=== PATIENT | male | born 1940 | race Caucasian/White ===

== ENCOUNTER 2017-01-19 19:56 | Emergency (ER) | payer MEDICARE, MEDICAID ==
--- NOTE | 2017-01-19 20:39 | EDM.PDOC ---
ED HPI GENERAL MEDICAL PROBLEM - General Chief Complaint: Respiratory Problem Stated Complaint: COUGH Time Seen by Provider: 01/19/17 20:15 Source of Information: Reports: Patient History Limitations: Reports: No Limitations - History of Present Illness INITIAL COMMENTS - FREE TEXT/NARRATIVE: 76 YO WM presents to ER complaining of nonproductive cough when lying supine. Pt reports his was seen in the clinic yesterday for similar symptoms and she was started on a z-pack, and patient was prescribed a z-pack as well as a prophylaxsis due to infection in the home. Pt reports he lied down tonight and started coughing prompting ER visit. Pt denies shortness of breath, denies chest pain, denies fever/chills. Pt reports nasal congestion with some drainage tonight. Onset: today Duration: Day(s): (1) Severity: mild Improves with: Reports: Other (sitting up) Worsens with: Denies: Breathing Associated Symptoms: Reports: cough. Denies: chest pain, cough w sputum, fever/ chills, nausea/vomiting, shortness of breath, syncope, weakness - Related Data Allergies Allergy/AdvReac Type Severity Reaction Status Date / Time omeprazole magnesium Allergy Intermediate Cannot Verified 01/19/17 20:02 [From Prilosec] Remember cimetidine [From Tagamet] Allergy Cannot Verified 01/19/17 20:02 Remember cimetidine HCl [From Tagamet] Allergy Cannot Verified 01/19/17 20:02 Remember codeine Allergy Rash Verified 01/19/17 20:02 omeprazole [From Prilosec] Allergy Cannot Verified 01/19/17 20:02 Remember Home Meds: Home Meds Aspirin [Adult Low Dose Aspirin EC] 81 mg PO DAILY 10/09/13 [History] Albuterol [Ventolin HFA] 1 inhaler INH Q4H PRN #1 inhaler 01/14/16 [Rx] Allopurinol [Zyloprim] 300 mg PO DAILY #90 tablet 01/14/16 [Rx] Esomeprazole [NexIUM] 40 mg PO ACBREAKFAST #90 cap 01/14/16 [Rx] Furosemide [Lasix] 20 mg PO DAILY #90 tablet 01/14/16 [Rx] Gemfibrozil [Lopid] 600 mg PO BIDAC #90 tablet 01/14/16 [Rx] Simvastatin [Zocor] 20 mg PO BEDTIME #90 tablet 01/14/16 [Rx] Tamsulosin [Flomax] 0.4 mg PO QAM #90 cap.er 01/14/16 [Rx] busPIRone [Buspar] 10 mg PO BID #90 tablet 01/14/16 [Rx] metFORMIN [Glucophage] 1,000 mg PO BIDM #90 tablet 01/14/16 [Rx] traMADol HCl [Tramadol HCl] 50 mg PO TID PRN 04/16/16 [History] Lisinopril 20 mg PO BID 10/10/16 [History] Metoprolol Tartrate [Lopressor] 25 mg PO BID 10/10/16 [History] chlordiazePOXIDE [Librium] 10 mg PO BID 10/10/16 [History] Acetaminophen 650 mg PO Q6H PRN 10/11/16 [History] Nystatin [IJD: Nystatin Cream] 1 gm TOP BID #1 tube 10/17/16 [Rx] Azithromycin [Azithromycin] 250 mg PO DAILY 01/19/17 [History] Benzonatate [Tessalon Perles] 100 mg PO TID PRN #20 cap 01/19/17 [Rx] Cetirizine HCl [Zyrtec] 10 mg PO DAILYRT #30 tablet 01/19/17 [Rx] Past Medical History HEENT History: Reports: Cataract, Impaired vision Cardiovascular History: Reports: High cholesterol, Hypertension, [place] Gastrointestinal History: Reports: Chronic constipation, GERD Genitourinary History: Reports: BPH Musculoskeletal History: Reports: Arthritis, Back pain, chronic Psychiatric History: Reports: Anxiety, Dementia, Depression, Mood swings, Panic attack Endocrine/Metabolic History: Reports: Diabetes, type II, Obesity/BMI 30+ - Infectious Disease History Infectious Disease History: Reports: Measles - Past Surgical History HEENT Surgical History: Reports: Cataract surgery Cardiovascular Surgical History: Reports: None Respiratory Surgical History: Reports: None GI Surgical History: Reports: Cholecystectomy, Colonoscopy, EGD, Hernia, abdominal Endocrine Surgical History: Reports: None Musculoskeletal Surgical History: Reports: None Social & Family History - Family History HEENT: Reports: None Cardiac: Reports: Hypertension, [place] Respiratory: Reports: None GI: Reports: None : Reports: None OBGYN: Reports: None Musculoskeletal: Reports: None Neurological: Reports: None Psychiatric: Reports: None Endocrine/Metabolic: Reports: None Hematologic: Reports: None Immunologic: Reports: None Dermatologic: Reports: None Oncologic: Reports: Prostate - Tobacco Use Smoking Status *Q: Former Smoker Years of Tobacco use: 5 Packs/Tins Daily: 1 Used Tobacco, but Quit: No Month Tobacco Last Used: January Second Hand Smoke Exposure: No - Caffeine Use Caffeine Use: Reports: Coffee, Soda, Tea - Alcohol Use Days Per Week of Alcohol Use: 7 Number of Drinks Per Day: 7 Total Drinks Per Week: 49 - Recreational Drug Use Recreational Drug Use: No - Living Situation & Occupation Living situation: Reports: Occupation: retired ED ROS GENERAL - Review of Systems Review Of Systems: See Below Constitutional: Reports: No Symptoms HEENT: Reports: No Symptoms Respiratory: Reports: Cough. Denies: Shortness of Breath, Wheezing, Pleuritic Chest Pain, Sputum, Hemoptysis Cardiovascular: Reports: No Symptoms Endocrine: Reports: No Symptoms GI/Abdominal: Reports: No Symptoms : Reports: No Symptoms Musculoskeletal: Reports: No Symptoms Skin: Reports: No Symptoms Neurological: Reports: No Symptoms Psychiatric: Reports: No Symptoms Hematologic/Lymphatic: Reports: No Symptoms Immunologic: Reports: No Symptoms ED EXAM, GENERAL - Physical Exam Exam: See Below Exam Limited By: No Limitations General Appearance: Alert, WD/WN, No Apparent Distress Ears: Normal External Exam, Normal Canal, Hearing Grossly Normal, Normal TMs Nose: Normal Inspection, Normal Mucosa, No Blood, Clear Rhinorrhea Throat/Mouth: Normal Inspection, Normal Lips, Normal Teeth, Normal Gums, Normal Oropharynx, Normal Voice, No Airway Compromise Head: Atraumatic, Normocephalic Neck: Normal Inspection, Supple, Non-Tender, Full Range of Motion Respiratory/Chest: No Respiratory Distress, Lungs Clear, Normal Breath Sounds, No Accessory Muscle Use, Chest Non-Tender Cardiovascular: Normal Peripheral Pulses, Regular Rate, Rhythm, No Edema, No Gallop, No JVD, No Murmur, No Rub GI/Abdominal: Normal Bowel Sounds, Soft, Non-Tender, No Organomegaly, No Distention, No Abnormal Bruit, No Mass Back Exam: Normal Inspection, Full Range of Motion, NT Extremities: Normal Inspection, Normal Range of Motion, Non-Tender, Normal Capillary Refill, No Pedal Edema Neurological: Alert, Oriented, CN II-XII Intact, Normal Cognition, Normal Gait, Normal Reflexes, No Motor/Sensory Deficits Psychiatric: Normal Affect, Normal Mood Skin Exam: Warm, Dry, Intact, Normal Color, No Rash Lymphatic: No Adenopathy Course - Vital Signs Last Recorded V/S: Last Vital Signs Temp 36.1 C 01/19/17 20:00 Pulse 60 01/19/17 20:00 Resp 22 H 01/19/17 20:00 BP 132/60 01/19/17 20:00 Pulse Ox 96 01/19/17 20:00 - Orders/Labs/Meds Orders: Active Orders 24 hr Category Date Time Status Chest 2V [CR] Stat Exams 01/19/17 20:31 Taken Meds: Medications Discontinued Medications Generic Name Dose Route Start Last Admin Trade Name Freq PRN Reason Stop Dose Admin Diphenhydramine HCl 50 mg 01/19/17 20:43 01/19/17 20:58 Benadryl PO 01/19/17 20:44 50 mg ONETIME ONE Administration Departure - Departure Time of Disposition: 21:00 Disposition: Home, Self-Care 01 Condition: good Clinical Impression: Cough Upper respiratory infection Qualifiers: URI type: unspecified viral URI Qualified Code(s): J06.9 - Acute upper respiratory infection, unspecified - Discharge Information Prescriptions: Benzonatate [Tessalon Perles] 100 mg PO TID PRN #20 cap PRN Reason: Cough Cetirizine HCl [Zyrtec] 10 mg PO DAILYRT #30 tablet Instructions: Upper Respiratory Infection, Adult, [id number] Referrals: Georgia Zabala MD [Primary Care Provider] - Forms: ED Department Discharge - My Orders Last 24 Hours: My Active Orders 01/19/17 20:31 Chest 2V [CR] Stat - Assessment/Plan Last 24 Hours: My Active Orders 01/19/17 20:31 Chest 2V [CR] Stat Assessment:: 1. nonproductive cough 2. upper respiratory tract infection Plan: 1. zyrtec 10mg PO QD 2. continue z-pack 3. benadryl 50mg PO QHS PRN 4. tesselon perles 100mg PO TID PRN 5. follow up in clinic for recheck or return to ER for worsening symptoms
[2017-01-19] MEDS ORDERED: diphenhydrAMINE 25 MG Cap PO ONE (20:43)
[2017-01-19 22:58] VITALS: BP 132/60
== END 2017-01-19 21:15 | disposition home or self-care (01) ==
LOC: KA.ED 19:56
DX: J06.9 Acute upper respiratory infection, unspecified (principal); E78.00 Pure hypercholesterolemia, unspecified; I10 Essential (primary) hypertension; I25.2 Old myocardial infarction; K21.9 Gastro-esophageal reflux disease without esophagitis; F41.9 Anxiety disorder, unspecified; F32.9 Major depressive disorder, single episode, unspecified; E66.9 Obesity, unspecified; E11.9 Type 2 diabetes mellitus without complications; Z98.49 Cataract extraction status, unspecified eye; Z88.1 Allergy status to other antibiotic agents; Z88.8 Allergy status to other drugs, medicaments and biological substances; Z88.5 Allergy status to narcotic agent; Z79.82 Long term (current) use of aspirin; Z79.899 Other long term (current) drug therapy; Z90.49 Acquired absence of other specified parts of digestive tract; Z87.891 Personal history of nicotine dependence
CPT/HCPCS: 71020; 99283; A9270

== ENCOUNTER 2017-01-25 12:30 | Observation (INO) | payer MEDICARE, MEDICAID ==
[2017-01-25] MEDS ORDERED: traMADol 50 MG Tab PO PRN ×2 (13:18→22:20)
[2017-01-25] MEDS ORDERED: Dextrose 5%-0.45% NaCl 1,000 ML IV SCH (13:30)
[2017-01-25] MEDS ORDERED: Albuterol 0.083% 2.5 MG/3 ML Neb Soln NEB PRN (13:30)
[2017-01-25] MEDS ORDERED: Azithromycin 250 MG Tab PO ONE (14:00)
[2017-01-25 14:22] LABS: CHLORIDE,CL 100 mmol/L (98-115); SODIUM,NA 144 mmol/L (136-145)
[2017-01-25] MEDS: Levofloxacin/Dextrose 5%-Water 500 MG in Premix Bag 1 BAG IV SCH (15:12)
[2017-01-25] MEDS: guaiFENesin 100 MG/5 ML Soln 10 ML UD Cup PO PRN (15:19)
[2017-01-25] MEDS ORDERED: Ketorolac 60 MG/2 ML SDV IM ONE (15:41)
[2017-01-25] MEDS: Albuterol 0.083% 2.5 MG/3 ML Neb Soln NEB SCH ×2 (17:15→22:31)
[2017-01-25] MEDS ORDERED: Albuterol HFA 18 Gm Inhaler INH PRN (22:20)
[2017-01-25] MEDS ORDERED: Ketorolac 30 MG/ML SDV IVPUSH ONE (22:21)
[2017-01-25] MEDS: metFORMIN 500 MG Tab PO SCH (22:45)
[2017-01-26] MEDS: Albuterol 0.083% 2.5 MG/3 ML Neb Soln NEB SCH ×4 (05:52→21:45)
[2017-01-26] MEDS: Gemfibrozil 600 MG Tab PO SCH ×2 (06:00→18:01)
[2017-01-26] MEDS ORDERED: Esomeprazole 40 MG Cap PO SCH (07:00)
[2017-01-26] MEDS: metFORMIN 500 MG Tab PO SCH ×2 (07:49→18:01)
[2017-01-26] MEDS: Allopurinol 100 MG Tab PO SCH (08:00)
[2017-01-26] MEDS: Furosemide 20 MG Tab PO SCH (08:01)
[2017-01-26] MEDS: Lisinopril 20 MG Tab PO SCH ×2 (08:01→21:44)
[2017-01-26] MEDS: chlordiazePOXIDE 10 MG Cap PO SCH ×2 (08:01→21:44)
[2017-01-26] MEDS: Tamsulosin 0.4 MG Cap.ER PO SCH (08:01)
[2017-01-26] MEDS: Metoprolol Tartrate 25 MG Tab PO SCH ×2 (08:01→21:44)
[2017-01-26] MEDS ORDERED: Azithromycin 250 MG Tab PO SCH (09:00)
[2017-01-26] MEDS ORDERED: busPIRone 10 MG Tab PO SCH ×2 (09:00→21:00)
--- NOTE | 2017-01-26 12:26 | PN ---
01/26/2017 PATIENT NAME: JOCELYN FORTE CHIEF COMPLAINT: Feels great today and some improvement. HISTORY: This 76-year-old gentleman was admitted yesterday by an outlying clinic, [facility] provider. He had had some frequent hospitalizations here for decreased mobility and some self-care neglect of himself. However, he came in with quite a bit of a harsh cough for several weeks, some shortness of breath and does have some ill contacts with the spouse, she was concerned. No apparent fever. He just became more weak and was having problems with an ambulation, which is a slow progression for him. He has always refused any assisted living or long-term care. He stated yesterday that his confusion and his short-term memory was worsening. He was short of breath yesterday. A chest x-ray was done at the [facility], which demonstrated some possible right upper lobe atelectasis; however, there was no definitive consolidation, no pneumothorax, cardiomegaly was negative. PHYSICAL EXAMINATION: VITAL SIGNS: Normal. Temperature 97, blood pressure 135/74, respiratory rate is normal, O2 sats on room air normal. GENERAL: The patient is alert and oriented, seems a little agitated. He does not want to be here. However, he is somewhat cordial, he is very lucid, and he is agreeable to stay at this time. LUNGS: Slightly rales in right lower base, little bit of rhonchus. CV: Regular rate and rhythm. LABORATORY DATA: White count 10.3, neutrophils are slightly elevated around 80%. Sodium and potassium are normal. Glucose 247. Uric acid slightly elevated at 7.8. IMPRESSION AND PLAN: 1. Rule out pneumonia, could be early sign. However, chest x-ray is not supporting this. We will continue levofloxacin for community acquired, likely prodromal due to elevated percentage of neutrophils. Aggressive incentive spirometer today. Just continue azithromycin. 2. Self-care neglect, quite significant and profound on admission. 3. Weakness, mainly lower extremities. Very difficult for him to get out of a sitting position. 4. Hypertension, which is stable. 5. Benign prostatic hypertrophy, stable. 6. Early dementia, stable. 7. Hyperlipidemia, stable. 8. Arthritis of both knees, right worse than left. He is on Ultram. 9. Gout. He is on allopurinol 300 mg daily. 10.Diabetes type 2. He is on metformin. 11.Gastroesophageal reflux disease. Allergic to the hospital's omeprazole. We will place on Zantac. OVERALL PLAN: This patient was admitted in observation. Likely could potentially be discharged within 24-48 hours. Continue with levofloxacin and ongoing monitoring, aggressive incentive spirometer today. /[id number]/MODL
[2017-01-26] MEDS: Levofloxacin/Dextrose 5%-Water 500 MG in Premix Bag 1 BAG IV SCH (13:09)
[2017-01-26] MEDS: guaiFENesin 100 MG/5 ML Soln 10 ML UD Cup PO PRN (16:20)
[2017-01-26] MEDS ORDERED: Simvastatin 20 MG Tab PO SCH (21:00)
[2017-01-26] MEDS: busPIRone 5 MG Tab PO SCH (21:44)
[2017-01-26 22:17] VITALS: BP 142/74
[2017-01-27] MEDS: Albuterol 0.083% 2.5 MG/3 ML Neb Soln NEB SCH (05:29)
[2017-01-27] MEDS: guaiFENesin 100 MG/5 ML Soln 10 ML UD Cup PO PRN (05:31)
[2017-01-27] MEDS: Gemfibrozil 600 MG Tab PO SCH ×2 (05:31→06:25)
[2017-01-27] MEDS: busPIRone 5 MG Tab PO SCH (09:03)
[2017-01-27] MEDS: Furosemide 20 MG Tab PO SCH (09:03)
[2017-01-27] MEDS: metFORMIN 500 MG Tab PO SCH (09:04)
[2017-01-27] MEDS: Tamsulosin 0.4 MG Cap.ER PO SCH (09:04)
[2017-01-27] MEDS: Allopurinol 100 MG Tab PO SCH (09:05)
[2017-01-27] MEDS: Lisinopril 20 MG Tab PO SCH (09:06)
[2017-01-27] MEDS: Metoprolol Tartrate 25 MG Tab PO SCH (09:06)
[2017-01-27] MEDS: chlordiazePOXIDE 10 MG Cap PO SCH (09:09)
--- NOTE | 2017-01-30 08:11 | DISCH ---
FINAL DIAGNOSES: 1. Bronchitis acute, pneumonia was ruled out. Self-care neglect, quite significant and profound on admission. Senior Principal [employer] consultation placed. Weakness, mainly lower extremities. 2. Hypertension. 3. Benign prostatic hyperplasia, which is stable. 4. Early dementia, stable. 5. Hyperlipidemia, stable. 6. Arthritis of both knees, right worse than left. He is on Ultram. 7. Gout slightly elevated uric acid level, however, he is on allopurinol. 8. Diabetes type 2 mellitus, on metformin. 9. Gastroesophageal reflux disease. HISTORY: This 76-year-old gentleman was admitted from [facility]. He has been having quite frequent hospitalizations due to decreased mobility and some self-care neglect of himself. He did have developed a harsh cough, it has been ongoing now for several weeks, some shortness of breath. He has been exposed to ill contacts with his spouse. She was concerned, so she brought him in to see a provider. Chest x-ray was performed at [facility], which did not show any focal consolidation, may have some upper right lobe atelectasis, does live at home. Multiple attempts regarding assisted living in [place] have been attempted. He has always refused these, admitted to observation. We did start IV levofloxacin. HOSPITAL COURSE: Hospital course went well. He did have a slightly elevated white blood cell count of 10.3 on admission with percentage neutrophil 79%, they were decreasing upon discharge. White count on discharge was 9.0. Electrolytes were normal. He did have a uric acid 7.8, which is slightly elevated. Glucose 247. Liver functions were within normal limits. Vital signs were stable and never ran a temperature. Microbiology report no growth on blood cultures. The patient was demanding to be released. Even of his day of discharge, he never had any sputum production. He did have a mild cough. He was initially also started on erythromycin, this was discontinued yesterday. We kept on levofloxacin. Never became hypoxic. He had intake and output, which was adequate. He never had any adverse reactions or side effects to any medications or treatment. PHYSICAL EXAMINATION: VITAL SIGNS: On discharge, temperature 97.2, heart rate 86, blood pressure 142/74, O2 sats 94% and 96%, this respiratory rate 20. He is on room air. LUNGS: Slightly bronchi just to the right upper, however, rest was clear, no crackles. CV: Regular rate and rhythm. He had no edema. He felt he was ready for discharge home. Senior Principal Architect, we got consulted with the patient regarding any services he may need. At this time, he is refusing any in-home therapy or treatment. MEDICATIONS: On discharge: Levofloxacin 500 mg p.o. x5 days. He can start that today (newly added). He can continue on all his other home meds. DISPOSITION: He will be discharged home. He has been counseled regarding this. Senior Principal Architect have been working with me regarding home placement for him. At this time, we will send him home. He is in observation status. He will follow up with the [facility] next week, report any fever, shortness of breath, mucous production, or further weakness, or shortness of breath. MEDICAL DECISION MAKIN minutes was spent on this discharge planning process and director of social work referrals and care coordination. /[id number]/MODL
== END 2017-01-27 11:19 | disposition home or self-care (01) ==
LOC: KA.MS 12:30
PROVIDERS: ADMIT Physician Assistant Medical; ATTEND Family Medicine
DX: R53.1 Weakness (principal); I10 Essential (primary) hypertension; N40.0 Benign prostatic hyperplasia without lower urinary tract symptoms; F03.90 Unspecified dementia, unspecified severity, without behavioral disturbance, psychotic disturbance, mood disturbance, and anxiety; E78.5 Hyperlipidemia, unspecified; M13.862 Other specified arthritis, left knee; M13.861 Other specified arthritis, right knee; M10.9 Gout, unspecified; E11.9 Type 2 diabetes mellitus without complications; Z79.84 Long term (current) use of oral hypoglycemic drugs; K21.9 Gastro-esophageal reflux disease without esophagitis; Z79.899 Other long term (current) drug therapy; Z88.8 Allergy status to other drugs, medicaments and biological substances; F41.9 Anxiety disorder, unspecified; E78.1 Pure hyperglyceridemia; Z90.49 Acquired absence of other specified parts of digestive tract; Z87.891 Personal history of nicotine dependence
CPT/HCPCS: 36415; 71010; 73020; 80053; 82962; 84550; 85025; 85651; 87040; 94640; 96361; 96365; 96366; 96375; A9270; G0378; G0379; J1885; J1956; J7042; J7620

== ENCOUNTER 2017-04-21 08:10 | Emergency (ER) | payer MEDICARE, MEDICAID, OTHER ==
--- NOTE | 2017-04-21 09:08 | EDM.PDOC ---
ED HPI GENERAL MEDICAL PROBLEM - General Chief Complaint: Lower Extremity Injury/Pain Stated Complaint: FALL Time Seen by Provider: 04/21/17 09:01 Source of Information: Reports: Patient, EMS History Limitations: Reports: No Limitations - History of Present Illness INITIAL COMMENTS - FREE TEXT/NARRATIVE: 76 YO WM presents to ER by EMS after fall at home. Pt reports right knee pain from fall. Pt states he was walking out of the bathroom and fell. Pt denies any dizziness, denies any shortness of breath, denies any chest pain or loss of consciousness. Pt reports he remembers the fall and that he fell forward onto his knees. Pt without any other complaints. Onset: Today Onset Date: 04/21/17 Onset Time: 08:00 Duration: Hour(s): (1) Location: Reports: Lower Extremity, Right Quality: Reports: Ache Severity: Moderate Improves with: Reports: Rest Worsens with: Reports: Movement Associated Symptoms: Reports: No Other Symptoms Treatments HIDE EXAMINER: Reports: Cold Therapy - Related Data Allergies Allergy/AdvReac Type Severity Reaction Status Date / Time omeprazole magnesium Allergy Intermediate Cannot Verified 04/21/17 08:47 [From Prilosec] Remember cimetidine [From Tagamet] Allergy Cannot Verified 04/21/17 08:47 Remember cimetidine HCl [From Tagamet] Allergy Cannot Verified 04/21/17 08:47 Remember codeine Allergy Rash Verified 04/21/17 08:47 omeprazole [From Prilosec] Allergy Cannot Verified 04/21/17 08:47 Remember Home Meds: Home Meds Albuterol [Ventolin HFA] 1 inhaler INH Q4H PRN #1 inhaler 01/14/16 [Rx] Allopurinol [Zyloprim] 300 mg PO DAILY #90 tablet 01/14/16 [Rx] Esomeprazole [NexIUM] 40 mg PO ACBREAKFAST #90 cap 01/14/16 [Rx] Furosemide [Lasix] 20 mg PO DAILY #90 tablet 01/14/16 [Rx] Gemfibrozil [Lopid] 600 mg PO BIDAC #90 tablet 01/14/16 [Rx] Simvastatin [Zocor] 20 mg PO BEDTIME #90 tablet 01/14/16 [Rx] Tamsulosin [Flomax] 0.4 mg PO QAM #90 cap.er 01/14/16 [Rx] busPIRone [Buspar] 10 mg PO BID #90 tablet 01/14/16 [Rx] metFORMIN [Glucophage] 1,000 mg PO BIDM #90 tablet 01/14/16 [Rx] traMADol HCl [Tramadol HCl] 2 tab PO Q8H PRN 04/16/16 [History] Lisinopril 20 mg PO BID 10/10/16 [History] Metoprolol Tartrate [Lopressor] 25 mg PO BID 10/10/16 [History] chlordiazePOXIDE [Librium] 10 mg PO BID 10/10/16 [History] Acetaminophen 650 mg PO Q6H PRN 10/11/16 [History] Past Medical History HEENT History: Reports: Cataract, Impaired Vision Cardiovascular History: Reports: High Cholesterol, Hypertension, [place] Respiratory History: Reports: Pneumonia, Recurrent Gastrointestinal History: Reports: Chronic Constipation, GERD Genitourinary History: Reports: BPH Musculoskeletal History: Reports: Arthritis, Back Pain, Chronic Psychiatric History: Reports: Anxiety, Dementia, Depression, Mood Swings, Panic Attack Endocrine/Metabolic History: Reports: Diabetes, Type II, Obesity/BMI 30+ - Infectious Disease History Infectious Disease History: Reports: Measles - Past Surgical History HEENT Surgical History: Reports: Cataract Surgery Respiratory Surgical History: Reports: None GI Surgical History: Reports: Cholecystectomy, Colonoscopy, EGD, Hernia, Abdominal Social & Family History - Family History HEENT: Reports: None Cardiac: Reports: Hypertension, [place] Respiratory: Reports: None GI: Reports: None : Reports: None OBGYN: Reports: None Musculoskeletal: Reports: None Neurological: Reports: None Psychiatric: Reports: None Endocrine/Metabolic: Reports: None Hematologic: Reports: None Immunologic: Reports: None Dermatologic: Reports: None Oncologic: Reports: Prostate - Tobacco Use Smoking Status *Q: Former Smoker Years of Tobacco use: 5 Packs/Tins Daily: 1 Used Tobacco, but Quit: Yes Month Tobacco Last Used: January Second Hand Smoke Exposure: No - Caffeine Use Caffeine Use: Reports: Coffee, Soda, Tea - Alcohol Use Days Per Week of Alcohol Use: 7 Number of Drinks Per Day: 7 Total Drinks Per Week: 49 - Recreational Drug Use Recreational Drug Use: No - Living Situation & Occupation Living situation: Reports: Occupation: Retired Review of Systems - Review of Systems Review Of Systems: See Below Constitutional: Reports: No Symptoms Eyes: Reports: No Symptoms Ears: Reports: No Symptoms Nose: Reports: No Symptoms Mouth/Throat: Reports: No Symptoms Respiratory: Reports: No Symptoms Cardiovascular: Reports: No Symptoms GI/Abdominal: Reports: No Symptoms Genitourinary: Reports: No Symptoms Musculoskeletal: Reports: Leg Pain (right knee pain) Skin: Reports: No Symptoms Neurological: Reports: No Symptoms Psychiatric: Reports: No Symptoms ED EXAM, GENERAL - Physical Exam Exam: See Below Exam Limited By: No Limitations General Appearance: Alert, WD/WN, No Apparent Distress Nose: Normal Inspection, Normal Mucosa, No Blood Throat/Mouth: Normal Inspection, Normal Lips, Normal Teeth, Normal Gums, Normal Oropharynx, Normal Voice, No Airway Compromise Head: Atraumatic, Normocephalic Neck: Normal Inspection, Supple, Non-Tender, Full Range of Motion Respiratory/Chest: No Respiratory Distress, Lungs Clear, Normal Breath Sounds, No Accessory Muscle Use, Chest Non-Tender Cardiovascular: Normal Peripheral Pulses, Regular Rate, Rhythm, No Gallop, No JVD, No Murmur, No Rub. No: No Edema GI/Abdominal: Normal Bowel Sounds, Soft, Non-Tender, No Organomegaly, No Distention, No Abnormal Bruit, No Mass Back Exam: Normal Inspection, Full Range of Motion, NT Extremities: Pedal Edema, Leg Pain (right knee pain with effusion), Increased Warmth Neurological: Alert, Oriented, CN II-XII Intact, Normal Cognition, Normal Gait, Normal Reflexes, No Motor/Sensory Deficits Psychiatric: Normal Affect, Normal Mood Skin Exam: Warm, Dry, Intact, Normal Color, No Rash Lymphatic: No Adenopathy Course - Vital Signs Last Recorded V/S: Last Vital Signs Temp 37.1 C 04/21/17 08:26 Pulse 65 04/21/17 08:26 Resp 20 04/21/17 08:26 BP 186/88 H 04/21/17 08:26 Pulse Ox 94 L 04/21/17 08:26 - Orders/Labs/Meds Orders: Active Orders 24 hr Category Date Time Status Chest 1V Frontal [CR] Stat Exams 04/21/17 09:06 Taken Knee 1V or 2V Rt [CR] Stat Exams 04/21/17 09:06 Taken Labs: Laboratory Tests 04/21/17 04/21/17 04/21/17 Range/Units 08:30 09:40 09:40 WBC 12.2 H (5.0-10.0) 10^3/uL RBC 4.68 (4.50-6.00) 10^6/uL Hgb 14.0 (13.0-17.0) g/dL Hct 41.7 (40.0-52.0) % MCV 89.0 (82.0-92.0) fL MCH 29.9 (27.0-31.0) pg MCHC 33.7 (32.0-36.0) g/dL RDW 13.4 (11.5-14.5) % Plt Count 166 (150-300) 10^3/uL MPV 7.6 (7.4-10.4) fL Neut % (Auto) 76.8 H (50.0-70.0) % Lymph % (Auto) 15.1 L (20.0-40.0) % [place] % (Auto) 7.0 (2.0-8.0) % Eos % (Auto) 0.9 L (1.0-3.0) % Baso % (Auto) 0.2 (0.0-1.0) % Neut # (Auto) 9.4 H (2.5-7.0) 10^3/uL Lymph # (Auto) 1.8 (1.0-4.0) 10^3/uL [place] # (Auto) 0.9 H (0.1-0.8) 10^3/uL Eos # (Auto) 0.1 (0.1-0.3) 10^3/uL Baso # (Auto) 0.0 (0.0-0.1) 10^3/uL Sodium 144 (136-145) mmol/L Potassium 3.9 (3.3-5.3) mmol/L Chloride 105 (98-115) mmol/L Carbon Dioxide 30.2 (21.0-32.0) mmol/L BUN 14 (6-25) mg/dL Creatinine 0.73 (0.51-1.17) mg/dL Est Cr Clr Drug Dosing 94.25 mL/min Estimated GFR (MDRD) > 60 mL/min Glucose 189 H (70-110) mg/dL Uric Acid (2.6-7.2) mg/dL Calcium 9.1 (8.7-10.3) mg/dL Specimen Type Urinvoid Urine Color Light yellow (YELLOW) Urine Appearance Clear (CLEAR) Urine pH 5.5 (5.0-9.0) Ur Specific [place] 1.010 (1.005-1.030) Urine Protein Negative (NEGATIVE) mg/dL Urine Glucose (UA) Negative (NEGATIVE) mg/dL Urine Ketones Negative (NEGATIVE) mg/dL Urine Occult Blood Negative (NEGATIVE) Urine Nitrite Negative (NEGATIVE) Urine Bilirubin Negative (NEGATIVE) Urine Urobilinogen 0.2 (0.2-1.0) E.U./dL Ur Leukocyte Esterase Trace H (NEGATIVE) Urine RBC Not seen /HPF Urine WBC 0-5 /HPF Ur Epithelial Cells Rare /LPF Urine Bacteria Not seen (NONE TO FEW) /HPF 04/21/17 Range/Units 09:40 WBC (5.0-10.0) 10^3/uL RBC (4.50-6.00) 10^6/uL Hgb (13.0-17.0) g/dL Hct (40.0-52.0) % MCV (82.0-92.0) fL MCH (27.0-31.0) pg MCHC (32.0-36.0) g/dL RDW (11.5-14.5) % Plt Count (150-300) 10^3/uL MPV (7.4-10.4) fL Neut % (Auto) (50.0-70.0) % Lymph % (Auto) (20.0-40.0) % [place] % (Auto) (2.0-8.0) % Eos % (Auto) (1.0-3.0) % Baso % (Auto) (0.0-1.0) % Neut # (Auto) (2.5-7.0) 10^3/uL Lymph # (Auto) (1.0-4.0) 10^3/uL [place] # (Auto) (0.1-0.8) 10^3/uL Eos # (Auto) (0.1-0.3) 10^3/uL Baso # (Auto) (0.0-0.1) 10^3/uL Sodium (136-145) mmol/L Potassium (3.3-5.3) mmol/L Chloride (98-115) mmol/L Carbon Dioxide (21.0-32.0) mmol/L BUN (6-25) mg/dL Creatinine (0.51-1.17) mg/dL Est Cr Clr Drug Dosing mL/min Estimated GFR (MDRD) mL/min Glucose (70-110) mg/dL Uric Acid 6.6 (2.6-7.2) mg/dL Calcium (8.7-10.3) mg/dL Specimen Type Urine Color (YELLOW) Urine Appearance (CLEAR) Urine pH (5.0-9.0) Ur Specific [place] (1.005-1.030) Urine Protein (NEGATIVE) mg/dL Urine Glucose (UA) (NEGATIVE) mg/dL Urine Ketones (NEGATIVE) mg/dL Urine Occult Blood (NEGATIVE) Urine Nitrite (NEGATIVE) Urine Bilirubin (NEGATIVE) Urine Urobilinogen (0.2-1.0) E.U./dL Ur Leukocyte Esterase (NEGATIVE) Urine RBC /HPF Urine WBC /HPF Ur Epithelial Cells /LPF Urine Bacteria (NONE TO FEW) /HPF Meds: Medications Discontinued Medications Generic Name Dose Route Start Last Admin Trade Name Freq PRN Reason Stop Dose Admin Ketorolac Tromethamine 30 mg 04/21/17 09:36 04/21/17 09:44 Toradol IVPUSH 04/21/17 09:37 30 mg ONETIME ONE Administration - Radiology Interpretation Free Text/Narrative:: right knee- NAD CXR- NAD Departure - Departure Time of Disposition: 10:17 Disposition: Against Medical Advice 07 Condition: Fair Clinical Impression: Weakness of both lower extremities Contusion of right knee Qualifiers: Encounter type: initial encounter Qualified Code(s): S80.01XA - Contusion of right knee, initial encounter Fall Qualifiers: Encounter type: initial encounter Qualified Code(s): W19.XXXA - Unspecified fall, initial encounter - Discharge Information Instructions: Knee Pain, Fall Prevention in the Home, [id number] Referrals: Georgia Zabala MD [Primary Care Provider] - Forms: ED Department Discharge - My Orders Last 24 Hours: My Active Orders 04/21/17 09:06 Chest 1V Frontal [CR] Stat Knee 1V or 2V Rt [CR] Stat - Assessment/Plan Last 24 Hours: My Active Orders 04/21/17 09:06 Chest 1V Frontal [CR] Stat Knee 1V or 2V Rt [CR] Stat Assessment:: 1. right knee pain 2. weakness due to deconditioning 3. inability to ambulate or transfer from bed to walker due to weakness Plan: 1. discussed case with [facility]- swing bed admission- Pt adamant about discharge, refusing hospitalization. Pt will be discharged against medical advice. 2. physical therapy 3. supportive care 4. Home health- This is a face to face encounter for home health services- pt needs nursing, physical therapy and occupational therapy due to potential for hospitalization related to frequent falls. Pt needs home health therapy program , home safety assessment, strength and endurance training due to limited strength due to muscle weakness, and unsteady gait.
[2017-04-21] MEDS ORDERED: Ketorolac 30 MG/ML SDV IVPUSH ONE (09:36)
[2017-04-21 10:06] LABS: CHLORIDE,CL 105 mmol/L (98-115); SODIUM,NA 144 mmol/L (136-145)
[2017-04-21 17:01] VITALS: BP 133/74
== END 2017-04-21 12:05 | disposition left against medical advice (07) ==
LOC: KA.ED 08:10
DX: S80.01XA Contusion of right knee, initial encounter (principal); R29.898 Other symptoms and signs involving the musculoskeletal system; E78.00 Pure hypercholesterolemia, unspecified; I10 Essential (primary) hypertension; I25.2 Old myocardial infarction; K21.9 Gastro-esophageal reflux disease without esophagitis; M19.90 Unspecified osteoarthritis, unspecified site; F32.9 Major depressive disorder, single episode, unspecified; E66.9 Obesity, unspecified; E11.9 Type 2 diabetes mellitus without complications; Z87.01 Personal history of pneumonia (recurrent); Z88.8 Allergy status to other drugs, medicaments and biological substances; Z79.84 Long term (current) use of oral hypoglycemic drugs; Z88.5 Allergy status to narcotic agent; Z79.899 Other long term (current) drug therapy; Z98.49 Cataract extraction status, unspecified eye; Z68.36 Body mass index [BMI] 36.0-36.9, adult; Z90.49 Acquired absence of other specified parts of digestive tract; Z87.891 Personal history of nicotine dependence; W19.XXXA Unspecified fall, initial encounter
CPT/HCPCS: 36415; 71010; 73560; 80048; 81001; 84550; 85025; 96374; 99284; J1885

== ENCOUNTER 2017-08-16 12:02 | Inpatient (IN) | payer MEDICARE, MEDICAID ==
[2017-08-16] MEDS ORDERED: Metoclopramide 10 MG/2 ML SDV IVPUSH SCH ×2 (12:45→18:00)
[2017-08-16] MEDS ORDERED: Pantoprazole 40 MG Vial IVPUSH SCH (12:45)
[2017-08-16] MEDS ORDERED: Sodium Chloride 0.9% 1,000 ML IV SCH (13:00)
[2017-08-16] MEDS ORDERED: Simethicone 80 MG Tab.Chew PO SCH ×2 (13:00→17:00)
[2017-08-16] MEDS ORDERED: Albuterol HFA 18 Gm Inhaler INH PRN (13:11)
[2017-08-16] MEDS ORDERED: Acetaminophen 325 MG Tab PO PRN (13:11)
[2017-08-16] MEDS ORDERED: Lactulose Soln 10 GM/15 ML 30 ML UD Cup PO SCH (13:15)
[2017-08-16 14:05] LABS: CHLORIDE,CL 101 mmol/L (98-115); SODIUM,NA 141 mmol/L (136-145)
[2017-08-16] MEDS ORDERED: Ketorolac 30 MG/ML SDV IVPUSH PRN (15:00)
[2017-08-16] MEDS ORDERED: Ondansetron 4 MG/2 ML SDV IVPUSH PRN (15:02)
[2017-08-16] MEDS ORDERED: Gemfibrozil 600 MG Tab PO SCH (17:30)
[2017-08-16 17:51] VITALS: BP 116/71
[2017-08-16] MEDS ORDERED: Metoprolol Tartrate 25 MG Tab PO SCH ×2 (18:00→21:00)
[2017-08-16] MEDS ORDERED: Lisinopril 20 MG Tab PO SCH ×2 (18:00→21:00)
[2017-08-16] MEDS ORDERED: Insulin Aspart 100 Units/ML 3 ML Pen SUBCUT SCH (18:00)
[2017-08-16] MEDS ORDERED: busPIRone 5 MG Tab PO SCH ×2 (18:00→21:00)
[2017-08-16] MEDS ORDERED: chlordiazePOXIDE 10 MG Cap PO SCH ×2 (18:00→21:00)
--- NOTE | 2017-08-16 19:15 | PCM.DCSUM1 ---
Discharge Summary - Hospital Course Brief History: This is a 76 year old male who was admitted from the clinic with a 2 day history of abdominal pain, nausea, and 1 episode of vomiting. Patient was seen in the clinic the day prior to admission and had workup with labs and CT. Hepatitis panel was negative. LFTs and bilirubin were found to be elevated. CT of the abdomen/pelvis was obtained and revealed: "1. Gallbladder is surgically absent. There is moderate intra and extrahepatic ductal dilation. 2. No evidence for any acute inflammatory process, free air or free fluid. 3. Right -sided renal cyst. 4. Distal esophagus at least the visualized portion does appear diffusely thick walled. Question whether there may be some chronic inflammatory change or even infiltrative change. Consider follow-up examination with either an esophagram or direct visualization. 5. Cardiomegaly. Bibasilar atelectasis. 6. Multiple lymph nodes seen along the mesenteric root. Overall nonspecific finding." The patient was admitted for further monitoring and treatment of his acute condition. - Discharge Data Discharge Date: 08/16/17 Discharge Disposition: DC/Tfer to Acute Hospital 02 Condition: Fair - Patient Summary/Data Consults: Dr. Castillo, hospitalist, [facility] Labs Pending at D/C: None - Discharge Plan Home Medications: Home Meds Albuterol [Ventolin HFA] 1 inhaler INH Q4H PRN #1 inhaler 01/14/16 [Rx] Allopurinol [Zyloprim] 300 mg PO DAILY #90 tablet 01/14/16 [Rx] Esomeprazole [NexIUM] 40 mg PO ACBREAKFAST #90 cap 01/14/16 [Rx] Furosemide [Lasix] 20 mg PO DAILY #90 tablet 01/14/16 [Rx] Tamsulosin [Flomax] 0.4 mg PO QAM #90 cap.er 01/14/16 [Rx] metFORMIN [Glucophage] 1,000 mg PO BIDM #90 tablet 01/14/16 [Rx] traMADol HCl [Tramadol HCl] 1 tab PO TID PRN 04/16/16 [History] Lisinopril 20 mg PO BIDMEALS 10/10/16 [History] Metoprolol Tartrate [Lopressor] 25 mg PO BID 10/10/16 [History] Acetaminophen 650 mg PO Q6H PRN 10/11/16 [History] Gemfibrozil [Lopid] 600 mg PO BIDAC 08/16/17 [History] Lactulose 45 ml PO DAILY 08/16/17 [History] Simethicone [Gas-X] 125 mg PO TIDMEALS 08/16/17 [History] Simvastatin [Zocor] 20 mg PO DAILY 08/16/17 [History] busPIRone [Buspar] 10 mg PO BIDMEALS 08/16/17 [History] chlordiazePOXIDE [Librium] 10 mg PO BIDMEALS 08/16/17 [History] - Discharge Summary/Plan Comment DC Time >30 min.: No Discharge Summary/Plan Comment: Date of admission: 08/16/17 Date of discharge: 08/16/17 Admitting Diagnosis: Primary: Generalized abdominal pain, rule out ileus versus obstruction Secondary: Hypertension, Esophageal Reflux, Hyperglyceridemia, Type 2 diabetes mellitus, Dementia, Osteoarthritis, Obesity, Anxiety Final Diagnosis: Primary: Transaminitis, Hyperbilirubinemia, Moderate intra and extrahepatic ductal diliation, Probable acute liver failure Secondary: Hypertension, Esophageal Reflux, Hyperglyceridemia, Type 2 diabetes mellitus, Dementia, Osteoarthritis, Obesity, Anxiety Procedures performed: None Hospital Course: The patient's hospital course was quite short and uneventful. The patient received IV fluids, lactulose, simethicone, and toradol with improvement in his symptoms. He remained hemodynamically stable. His labs upon admission reflected a doubling of his bilirubin to 6.7 in 24 hours. Alk phos 141, ALT 296, AST 429. WBC 9.1 with left shift present. INR 1.2. Due to elevation of LFTs and bilirubin , consult was placed to Dr. Castillo, hospitalist at [facility]. New medications on discharge: None New changes to home medications on discharge: -Holding the following: Metformin, nexium, lasix, tramadol Regular home medications on discharge: -Albuterol HFA 1 inh every 4 hours PRN shortness of breath -Tamsulosin 0.4 mg po daily -Lopressor 25 mg po BID -Allopurinol 300 mg po daily -Buspar 10 mg po BID with meals -Lactulose 45 mL po daily -Tylenol 650 mg po every 6 hours PRN pain -Metformin 1000 mg po BID -Lasix 20 mg po daily -Nexium 40 mg po daily -Lisinopril 20 mg po BID -Simvastatin 20 mg po daily -Tramadol 1 tab po TID PRN pain -Librium 10 mg po BID -Lopid 600 mg po BID -Simethicone 125 mg po TID with meals Condition, Treatment, and Final Disposition: The patient was transferred in stable condition via ALS ambulance to [facility] for further workup and treatment of his condition. - General Info Date of Service: 08/16/17 Functional Status: Reports: Pain Controlled - Review of Systems General: Denies: Fever, Chills Pulmonary: Denies: Shortness of Breath Cardiovascular: Denies: Chest Pain, Edema Gastrointestinal: Reports: Flatus. Denies: Abdominal Pain, Constipation, Diarrhea, Nausea, Vomiting Genitourinary: Reports: No Symptoms - Patient Data Vitals - Most Recent: Last Vital Signs Temp 99.0 F 08/16/17 15:00 Pulse 72 08/16/17 17:48 Resp 20 08/16/17 15:00 BP 116/71 08/16/17 17:48 Pulse Ox 95 08/16/17 15:00 Weight - Most Recent: 276 lb I&O - Last 24 hours: Intake & Output 08/16/17 08/16/17 08/16/17 06:59 14:59 22:59 Intake Total 0 Output Total 0 Balance 0 Lab Results - Last 24 hrs: Laboratory Results - last 24 hr 08/16/17 08/16/17 08/16/17 Range/Units 13:15 13:15 17:30 WBC 9.1 (5.0-10.0) 10^3/uL RBC 4.59 (4.50-6.00) 10^6/uL Hgb 13.6 (13.0-17.0) g/dL Hct 40.9 (40.0-52.0) % MCV 89.0 (82.0-92.0) fL MCH 29.7 (27.0-31.0) pg MCHC 33.3 (32.0-36.0) g/dL RDW 13.4 (11.5-14.5) % Plt Count 181 (150-300) 10^3/uL MPV 7.2 L (7.4-10.4) fL Neut % (Auto) 76.0 H (50.0-70.0) % Lymph % (Auto) 12.7 L (20.0-40.0) % [place] % (Auto) 9.5 H (2.0-8.0) % Eos % (Auto) 1.5 (1.0-3.0) % Baso % (Auto) 0.3 (0.0-1.0) % Neut # (Auto) 6.9 (2.5-7.0) 10^3/uL Lymph # (Auto) 1.2 (1.0-4.0) 10^3/uL [place] # (Auto) 0.9 H (0.1-0.8) 10^3/uL Eos # (Auto) 0.1 (0.1-0.3) 10^3/uL Baso # (Auto) 0.0 (0.0-0.1) 10^3/uL INR (0.9-1.1) Sodium 141 (136-145) mmol/L Potassium 3.6 (3.3-5.3) mmol/L Chloride 101 (98-115) mmol/L Carbon Dioxide 25.8 (21.0-32.0) mmol/L BUN 12 (6-25) mg/dL Creatinine 0.70 (0.51-1.17) mg/dL Est Cr Clr Drug Dosing 98.29 mL/min Estimated GFR (MDRD) > 60 mL/min Glucose 186 H (70-110) mg/dL POC Glucose 138 H (74-106) mg/dl Calcium 8.8 (8.7-10.3) mg/dL Total Bilirubin 6.7 H (0.2-1.0) mg/dL AST 429 H (15-37) U/L ALT 296 H (12-78) U/L Alkaline Phosphatase 141 H (46-116) IU/L Total Protein 7.7 (6.4-8.2) g/dL Albumin 3.58 (3.00-4.80) g/dL 08/16/17 Range/Units 18:40 WBC (5.0-10.0) 10^3/uL RBC (4.50-6.00) 10^6/uL Hgb (13.0-17.0) g/dL Hct (40.0-52.0) % MCV (82.0-92.0) fL MCH (27.0-31.0) pg MCHC (32.0-36.0) g/dL RDW (11.5-14.5) % Plt Count (150-300) 10^3/uL MPV (7.4-10.4) fL Neut % (Auto) (50.0-70.0) % Lymph % (Auto) (20.0-40.0) % [place] % (Auto) (2.0-8.0) % Eos % (Auto) (1.0-3.0) % Baso % (Auto) (0.0-1.0) % Neut # (Auto) (2.5-7.0) 10^3/uL Lymph # (Auto) (1.0-4.0) 10^3/uL [place] # (Auto) (0.1-0.8) 10^3/uL Eos # (Auto) (0.1-0.3) 10^3/uL Baso # (Auto) (0.0-0.1) 10^3/uL INR 1.2 H (0.9-1.1) Sodium (136-145) mmol/L Potassium (3.3-5.3) mmol/L Chloride (98-115) mmol/L Carbon Dioxide (21.0-32.0) mmol/L BUN (6-25) mg/dL Creatinine (0.51-1.17) mg/dL Est Cr Clr Drug Dosing mL/min Estimated GFR (MDRD) mL/min Glucose (70-110) mg/dL POC Glucose (74-106) mg/dl Calcium (8.7-10.3) mg/dL Total Bilirubin (0.2-1.0) mg/dL AST (15-37) U/L ALT (12-78) U/L Alkaline Phosphatase (46-116) IU/L Total Protein (6.4-8.2) g/dL Albumin (3.00-4.80) g/dL Med Orders - Current: Current Medications Acetaminophen (Tylenol) 650 mg PO Q6H PRN PRN Reason: Pain Albuterol (Ventolin Hfa) 0 gm INH Q4H PRN PRN Reason: Dyspnea Allopurinol (Zyloprim) 300 mg PO DAILY TRUNG Buspirone HCl (Buspar) 10 mg PO 0900,1800 [facility] Last Admin: 12/06/17 17:47 Dose: 10 mg Chlordiazepoxide HCl (Librium) 10 mg PO 0900,1800 [facility] Last Admin: 08/16/17 17:47 Dose: 10 mg Gemfibrozil (Lopid) [address] [facility] Last Admin: 08/16/17 17:15 Dose: 600 mg Sodium Chloride (Normal Saline) 1,000 mls @ 50 mls/hr IV ASDIRECTED [facility] Last Admin: 08/16/17 13:00 Dose: 50 mls/hr Insulin Aspart (Novolog) [address] [facility] PRN Reason: Protocol Last Admin: 08/16/17 17:37 Dose: Not Given Ketorolac Tromethamine (Toradol) 30 mg IVPUSH Q6H PRN PRN Reason: Pain Stop: 08/21/17 15:01 Last Admin: 08/16/17 15:24 Dose: 30 mg Lactulose (Cephulac) [address] [facility] Lisinopril (Prinivil) 20 mg PO 0900,1800 [facility] Last Admin: 08/16/17 17:47 Dose: 20 mg Metoclopramide HCl (Reglan) 10 mg IVPUSH 0000,0600,1200,1800 [facility] Last Admin: 08/16/17 17:48 Dose: 10 mg Metoprolol Tartrate (Lopressor) 25 mg PO 0900,1800 [facility] Last Admin: 08/16/17 17:48 Dose: 25 mg Ondansetron HCl (Zofran) 4 mg IVPUSH Q4H PRN PRN Reason: Nausea/Vomiting Last Admin: 08/16/17 15:27 Dose: 4 mg Pantoprazole Sodium (Protonix Iv) [address] [facility] Last Admin: 08/16/17 14:01 Dose: 40 mg Simethicone (Simethicone) [address] [facility] Last Admin: 08/16/17 17:14 Dose: 80 mg Simvastatin (Zocor) [address] [facility] Tamsulosin HCl (Flomax) 0.[address] [facility] Discontinued Medications Buspirone HCl (Buspar) [address] [facility] Chlordiazepoxide HCl (Librium) [address] [facility] Chlordiazepoxide HCl (Librium) 10 mg PO 0900,1800 [facility] Lactulose (Cephulac) [address] [facility] Last Admin: 08/16/17 13:46 Dose: Not Given Lisinopril (Prinivil) [address] [facility] Metoclopramide HCl (Reglan) [address] [facility] Last Admin: 08/16/17 14:02 Dose: 10 mg Metoprolol Tartrate (Lopressor) [address] [facility] Simethicone (Simethicone) [address] [facility] Last Admin: 08/16/17 14:25 Dose: Not Given Simvastatin (Zocor) [address] [facility] - Exam Quality Assessment: Denies: Supplemental Oxygen, Urine Catheter General: Reports: Alert, Oriented, Cooperative, No Acute Distress HEENT: Reports: Scleral Icterus (bilateral) Lungs: Reports: Clear to Auscultation, Normal Respiratory Effort Cardiovascular: Reports: Regular Rate, Regular Rhythm GI/Abdominal Exam: Non-Tender, Distended, Abnormal Bowel Sounds (hypoactive x 4 ) Extremities: Pedal Edema (trace-1+ bilaterally) Skin: Reports: Warm, Moist, Other (jaundiced appearance of neck and shoulders) Neurological: Reports: Normal Speech Psy/Mental Status: Reports: Alert, Normal Affect, Normal Mood *Q Meaningful Use (DIS) - VTE *Q VTE Criteria *Q: - Stroke *Q Stroke Criteria *Q: - AMI *Q AMI Criteria *Q:
[2017-08-16] MEDS ORDERED: Simvastatin 20 MG Tab PO SCH (21:00)
[2017-08-17] MEDS ORDERED: Lactulose Soln 10 GM/15 ML 30 ML UD Cup PO SCH (09:00)
[2017-08-17] MEDS ORDERED: Allopurinol 100 MG Tab PO SCH (09:00)
[2017-08-17] MEDS ORDERED: Tamsulosin 0.4 MG Cap.ER PO SCH (09:00)
[2017-08-17] MEDS ORDERED: chlordiazePOXIDE 10 MG Cap PO SCH (09:00)
[2017-08-17] MEDS ORDERED: Simvastatin 20 MG Tab PO SCH (09:00)
== END 2017-08-16 20:07 | DRG 442 ==
LOC: KA.MS 12:34 → UNDODISIN 20:15
PROVIDERS: ADMIT Physician Assistant; ATTEND Family Medicine
DX: K72.90 Hepatic failure, unspecified without coma (principal); J98.11 Atelectasis; R10.9 Unspecified abdominal pain; R74.0 Nonspecific elevation of levels of transaminase and lactic acid dehydrogenase [LDH]; E80.6 Other disorders of bilirubin metabolism; I10 Essential (primary) hypertension; K21.9 Gastro-esophageal reflux disease without esophagitis; E78.1 Pure hyperglyceridemia; E11.9 Type 2 diabetes mellitus without complications; F03.90 Unspecified dementia, unspecified severity, without behavioral disturbance, psychotic disturbance, mood disturbance, and anxiety; F41.9 Anxiety disorder, unspecified; I51.7 Cardiomegaly; M19.90 Unspecified osteoarthritis, unspecified site; E66.9 Obesity, unspecified; Z68.38 Body mass index [BMI] 38.0-38.9, adult; Z79.899 Other long term (current) drug therapy
CPT/HCPCS: 36415; 36416; 80053; 82962; 85025; 85610; A9270-GY; C9113; J1885; J2405; J2765; J7050

== ENCOUNTER 2017-10-05 06:49 | Emergency (ER) | payer MEDICAID, MEDICARE ==
[2017-10-05] MEDS ORDERED: Sodium Chloride 0.9% 5 ML Syringe FLUSH PRN (07:19)
[2017-10-05] MEDS ORDERED: Ondansetron 4 MG/2 ML SDV IVPUSH ONE (07:23)
[2017-10-05] MEDS ORDERED: Iopamidol 612 MG/ML 75 ML Bottle IV PRN (07:23)
[2017-10-05] MEDS ORDERED: Sodium Chloride 0.9% 50 ML SDV FLUSH ONE (07:30)
[2017-10-05] MEDS ORDERED: Morphine 4 MG/ML Syringe IVPUSH ONE (07:39)
--- NOTE | 2017-10-05 07:44 | EDM.PDOC ---
ED HPI GENERAL MEDICAL PROBLEM - General Chief Complaint: Abdominal Pain Stated Complaint: RUQ abd pain Time Seen by Provider: 10/05/17 07:15 Source of Information: Reports: Patient History Limitations: Reports: No Limitations - History of Present Illness INITIAL COMMENTS - FREE TEXT/NARRATIVE: 76 YO WM presents to ER complaining of abdominal pain which began sometime in the middle of the night tonight. Pt reports pain is localized to the upper abdomen and radiates in a "bandlike" fashion. Pt reports a remote history of cholecystectomy. Pt denies any nausea/vomiting, no fever chills, no chest pain or shortness of breath. Pt states his pain has improved while in ER. Pt reports last BM was yesterday and denies any bloody or dark stools. Onset: Today Duration: Hour(s): (3) Location: Reports: Abdomen, Back Quality: Reports: Ache Severity: Mild Improves with: Reports: None Worsens with: Reports: None Associated Symptoms: Reports: No Other Symptoms. Denies: Chest Pain, Cough, Fever/Chills, Nausea/Vomiting, Shortness of Breath, Syncope Abdominal Pain Score (Numeric/FACES): 6 - Related Data Allergies Allergy/AdvReac Type Severity Reaction Status Date / Time omeprazole magnesium Allergy Intermediate Cannot Verified 10/05/17 06:58 [From Prilosec] Remember cimetidine [From Tagamet] Allergy Cannot Verified 10/05/17 06:58 Remember cimetidine HCl [From Tagamet] Allergy Cannot Verified 10/05/17 06:58 Remember codeine Allergy Rash Verified 10/05/17 06:58 omeprazole [From Prilosec] Allergy Cannot Verified 10/05/17 06:58 Remember Home Meds: Home Meds Albuterol [Ventolin HFA] 1 inhaler INH Q4H PRN #1 inhaler 01/14/16 [Rx] Allopurinol [Zyloprim] 300 mg PO DAILY #90 tablet 01/14/16 [Rx] Esomeprazole [NexIUM] 40 mg PO ACBREAKFAST #90 cap 01/14/16 [Rx] Furosemide [Lasix] 20 mg PO DAILY #90 tablet 01/14/16 [Rx] Tamsulosin [Flomax] 0.4 mg PO QAM #90 cap.er 01/14/16 [Rx] metFORMIN [Glucophage] 1,000 mg PO BIDM #90 tablet 01/14/16 [Rx] traMADol HCl [Tramadol HCl] 1 tab PO TID PRN 04/16/16 [History] Lisinopril 20 mg PO BIDMEALS 10/10/16 [History] Metoprolol Tartrate [Lopressor] 25 mg PO BID 10/10/16 [History] Acetaminophen 650 mg PO Q6H PRN 10/11/16 [History] Gemfibrozil [Lopid] 600 mg PO BIDAC 08/16/17 [History] Lactulose 45 ml PO DAILY 08/16/17 [History] Simethicone [Gas-X] 125 mg PO TIDMEALS 08/16/17 [History] Simvastatin [Zocor] 20 mg PO DAILY 08/16/17 [History] busPIRone [Buspar] 10 mg PO BIDMEALS 08/16/17 [History] chlordiazePOXIDE [Librium] 10 mg PO BIDMEALS 08/16/17 [History] Past Medical History HEENT History: Reports: Cataract, Impaired Vision Cardiovascular History: Reports: High Cholesterol, Hypertension, [place] Respiratory History: Reports: Pneumonia, Recurrent Gastrointestinal History: Reports: Chronic Constipation, GERD Genitourinary History: Reports: BPH Musculoskeletal History: Reports: Arthritis, Back Pain, Chronic Psychiatric History: Reports: Anxiety, Dementia, Depression, Mood Swings, Panic Attack Endocrine/Metabolic History: Reports: Diabetes, Type II, Obesity/BMI 30+ - Infectious Disease History Infectious Disease History: Reports: Measles - Past Surgical History HEENT Surgical History: Reports: Cataract Surgery Respiratory Surgical History: Reports: None GI Surgical History: Reports: Cholecystectomy, Colonoscopy, EGD, Hernia, Abdominal Social & Family History - Family History HEENT: Reports: None Cardiac: Reports: Hypertension, [place] Respiratory: Reports: None GI: Reports: None : Reports: None OBGYN: Reports: None Musculoskeletal: Reports: None Neurological: Reports: None Psychiatric: Reports: None Endocrine/Metabolic: Reports: None Hematologic: Reports: None Immunologic: Reports: None Dermatologic: Reports: None Oncologic: Reports: Prostate - Tobacco Use Smoking Status *Q: Former Smoker Years of Tobacco use: 5 Packs/Tins Daily: 1 Used Tobacco, but Quit: Yes Month Tobacco Last Used: January Second Hand Smoke Exposure: No - Caffeine Use Caffeine Use: Reports: Coffee - Alcohol Use Days Per Week of Alcohol Use: 7 Number of Drinks Per Day: 7 Total Drinks Per Week: 49 - Recreational Drug Use Recreational Drug Use: No - Living Situation & Occupation Living situation: Reports: Occupation: Retired ED ROS GENERAL - Review of Systems Review Of Systems: See Below Constitutional: Reports: No Symptoms HEENT: Reports: No Symptoms Respiratory: Reports: No Symptoms Cardiovascular: Reports: No Symptoms Endocrine: Reports: No Symptoms GI/Abdominal: Reports: Abdominal Pain. Denies: Black Stool, Bloody Stool, Constipation, Diarrhea, Decreased Appetite, Hematemesis, Hematochezia, Melena, Nausea, Vomiting : Reports: No Symptoms Musculoskeletal: Reports: No Symptoms Skin: Reports: No Symptoms Neurological: Reports: No Symptoms Psychiatric: Reports: No Symptoms Hematologic/Lymphatic: Reports: No Symptoms Immunologic: Reports: No Symptoms ED EXAM, GI/ABD - Physical Exam Exam: See Below Exam Limited By: No Limitations General Appearance: Alert, WD/WN, No Apparent Distress Head: Atraumatic, Normocephalic Neck: Normal Inspection, Supple, Non-Tender, Full Range of Motion Respiratory/Chest: No Respiratory Distress, Lungs Clear, Normal Breath Sounds, No Accessory Muscle Use, Chest Non-Tender Cardiovascular: Normal Peripheral Pulses, Regular Rate, Rhythm, No Edema, No Gallop, No JVD, No Murmur, No Rub GI/Abdominal Exam: Normal Bowel Sounds, Soft, No Organomegaly, No Abnormal Bruit , No Mass, Pelvis Stable, Tender (RUQ pain) Back Exam: Normal Inspection, Full Range of Motion, NT Extremities: Normal Inspection, Normal Range of Motion, Non-Tender, Normal Capillary Refill, No Pedal Edema Neurological: Alert, Oriented, CN II-XII Intact, Normal Cognition, Normal Gait, Normal Reflexes, No Motor/Sensory Deficits Psychiatric: Normal Affect, Normal Mood Skin Exam: Warm, Dry, Intact, Normal Color, No Rash Lymphatic: No Adenopathy Course - Vital Signs Last Recorded V/S: Last Vital Signs Temp 37.1 C 10/05/17 07:03 Pulse 80 10/05/17 07:25 Resp 28 H 10/05/17 07:25 BP 170/67 H 10/05/17 07:25 Pulse Ox 93 L 10/05/17 07:25 - Orders/Labs/Meds Orders: Active Orders 24 hr Category Date Time Status EKG Documentation Completion [RC] ASDIRECTED Care 10/05/17 07:39 Active Abdomen Pelvis w Cont [CT] Stat Exams 10/05/17 07:16 Taken Iopamidol [Isovue-300 (61%)] Med 10/05/17 07:23 Active 75 ml IV . DIRECTED PRN Sodium Chloride 0.9% [Syrex Flush] Med 10/05/17 07:19 Active 5 ml FLUSH Q8HR PRN Saline Lock Insert [OM.PC] Routine Oth 10/05/17 07:19 Ordered Medication Orders Iopamidol (Isovue-300 (61%)) 75 ml IV . DIRECTED PRN PRN Reason: FOR RADIOLOGY EXAM Sodium Chloride (Syrex Flush) 5 ml FLUSH Q8HR PRN PRN Reason: Keep Vein Open Labs: Laboratory Tests 10/05/17 10/05/17 10/05/17 Range/Units 06:15 07:30 07:30 WBC 8.7 (5.0-10.0) 10^3/uL RBC 4.51 (4.50-6.00) 10^6/uL Hgb 13.2 (13.0-17.0) g/dL Hct 41.9 (40.0-52.0) % MCV 92.9 H (82.0-92.0) fL MCH 29.3 (27.0-31.0) pg MCHC 31.6 L (32.0-36.0) g/dL RDW 14.0 (11.5-14.5) % Plt Count 184 (150-300) 10^3/uL MPV 7.4 (7.4-10.4) fL Neut % (Auto) Not Reportable Lymph % (Auto) Not Reportable [place] % (Auto) Not Reportable Eos % (Auto) Not Reportable Baso % (Auto) Not Reportable Neut # (Auto) Not Reportable Lymph # (Auto) Not Reportable [place] # (Auto) Not Reportable Eos # (Auto) Not Reportable Baso # (Auto) Not Reportable Add Manual Diff Yes Neutrophils % (Manual) 88 H (50-70) % Lymphocytes % (Manual) 6 L (20-40) % Monocytes % (Manual) 5 (2-8) % Eosinophils % (Manual) 1 (1-3) % Sodium 148 H (136-145) mmol/L Potassium 3.1 L (3.3-5.3) mmol/L Chloride 108 (98-115) mmol/L Carbon Dioxide 26.8 (21.0-32.0) mmol/L BUN 13 (6-25) mg/dL Creatinine 0.69 (0.51-1.17) mg/dL Est Cr Clr Drug Dosing 99.71 mL/min Estimated GFR (MDRD) > 60 mL/min Glucose 172 H (70-110) mg/dL Calcium 8.5 L (8.7-10.3) mg/dL Total Bilirubin 1.0 (0.2-1.0) mg/dL AST 26 (15-37) U/L ALT 16 (12-78) U/L Alkaline Phosphatase 63 (46-116) IU/L Creatine Kinase 27 (26-276) U/L CK-MB (CK-2) < 0.50 (0.00-4.30) ng/mL Troponin I < 0.04 (0.00-0.070) ng/mL Total Protein 7.5 (6.4-8.2) g/dL Albumin 3.38 (3.00-4.80) g/dL Lipase 160 (73-393) U/L Specimen Type Urinvoid Urine Color Yellow (YELLOW) Urine Appearance Clear (CLEAR) Urine pH 6.5 (5.0-9.0) Ur Specific [place] >= 1.030 (1.005-1.030) Urine Protein 30 H (NEGATIVE) mg/dL Urine Glucose (UA) Negative (NEGATIVE) mg/dL Urine Ketones Negative (NEGATIVE) mg/dL Urine Occult Blood Trace-intact H (NEGATIVE) Urine Nitrite Negative (NEGATIVE) Urine Bilirubin Negative (NEGATIVE) Urine Urobilinogen 0.2 (0.2-1.0) E.U./dL Ur Leukocyte Esterase Negative (NEGATIVE) Urine RBC 5-10 H /HPF Urine WBC 0-5 /HPF Ur Epithelial Cells Rare /LPF Urine Bacteria Not seen (NONE TO FEW) /HPF Meds: Medications Generic Name Dose Route Start Last Admin Trade Name Freq PRN Reason Stop Dose Admin Iopamidol 75 ml 10/05/17 07:23 Isovue-300 (61%) IV . DIRECTED PRN FOR RADIOLOGY EXAM Sodium Chloride 5 ml 10/05/17 07:19 Syrex Flush FLUSH Q8HR PRN Keep Vein Open Discontinued Medications Generic Name Dose Route Start Last Admin Trade Name Melvinq PRN Reason Stop Dose Admin Morphine Sulfate 4 mg 10/05/17 07:39 10/05/17 07:42 Morphine IVPUSH 10/05/17 07:40 4 mg ONETIME ONE Administration Ondansetron HCl 4 mg 10/05/17 07:23 10/05/17 07:40 Zofran IVPUSH 10/05/17 07:24 4 mg ONETIME ONE Administration Sodium Chloride 50 ml 10/05/17 07:30 Normal Saline FLUSH 10/05/17 07:31 ONETIME ONE - Radiology Interpretation Free Text/Narrative:: CT abd/pelvis- increased retroperitoneal and mesenteric adenopathy Departure - Departure Time of Disposition: 09:17 Disposition: Home, Self-Care 01 Condition: Good Clinical Impression: Abdominal pain Qualifiers: Abdominal location: right upper quadrant Qualified Code(s): R10.11 - Right upper quadrant pain - Discharge Information Instructions: Abdominal Pain, Adult, [id number] Referrals: Georgia Zabala MD [Primary Care Provider] - Forms: ED Department Discharge - My Orders Last 24 Hours: My Active Orders 10/05/17 07:16 Abdomen Pelvis w Cont [CT] Stat 10/05/17 07:19 Sodium Chloride 0.9% [Syrex Flush] 5 ml FLUSH Q8HR PRN Saline Lock Insert [OM.PC] Routine 10/05/17 07:23 Iopamidol [Isovue-300 (61%)] 75 ml IV . DIRECTED PRN 10/05/17 07:39 EKG Documentation Completion [RC] ASDIRECTED - Assessment/Plan Last 24 Hours: My Active Orders 10/05/17 07:16 Abdomen Pelvis w Cont [CT] Stat 10/05/17 07:19 Sodium Chloride 0.9% [Syrex Flush] 5 ml FLUSH Q8HR PRN Saline Lock Insert [OM.PC] Routine 10/05/17 07:23 Iopamidol [Isovue-300 (61%)] 75 ml IV . DIRECTED PRN 10/05/17 07:39 EKG Documentation Completion [RC] ASDIRECTED Assessment:: 1. abdominal pain- improved Plan: 1. discharge home- discussed with Naman Al who will see him as an outpatient for further evaluation and treatment. 2. return to ER for worsening symptoms
[2017-10-05 07:51] VITALS: BP 170/67
[2017-10-05 08:15] LABS: CHLORIDE,CL 108 mmol/L (98-115); SODIUM,NA 148 mmol/L (136-145)
== END 2017-10-05 09:45 | disposition home or self-care (01) ==
LOC: KA.ED 06:49
DX: R10.11 Right upper quadrant pain (principal); E78.00 Pure hypercholesterolemia, unspecified; I10 Essential (primary) hypertension; E11.9 Type 2 diabetes mellitus without complications; Z88.8 Allergy status to other drugs, medicaments and biological substances; Z88.5 Allergy status to narcotic agent; Z79.899 Other long term (current) drug therapy; Z79.84 Long term (current) use of oral hypoglycemic drugs; Z87.891 Personal history of nicotine dependence
CPT/HCPCS: 36415; 74177; 80053; 81001; 82550; 82553; 83690; 84484; 85025; 93005; 96374; 96375; 99284; J2270; J2405; Q9967

== ENCOUNTER 2018-01-28 19:36 | Observation (INO) | payer MEDICARE, MEDICAID ==
[2018-01-28] MEDS ORDERED: Sodium Chloride 0.9% 5 ML Syringe FLUSH PRN ×2 (19:38→20:54)
--- NOTE | 2018-01-28 19:41 | EDM.PDOC ---
ED HPI GENERAL MEDICAL PROBLEM - General Chief Complaint: General Stated Complaint: Slurred Speech Time Seen by Provider: 01/28/18 19:40 Source of Information: Reports: EMS History Limitations: Reports: Altered Mental Status - History of Present Illness INITIAL COMMENTS - FREE TEXT/NARRATIVE: 77 YO WM presents to ER by EMS with slurred speech which began 1 hour prior to arrival. states laid down for a nap around 1pm and when he woke she was having trouble understanding him. denies any facial droop or obvious weakness. Pt was able to sit up on the side of the bed until EMS arrived. EMS states pt was alert and oriented with pronator drift, facial droop , or obvious focal neurological deficits. Upon arrival to ER, slurred speach resolved. Pt is alert and oriented x 4 and recognizes staff and his appropriately. Pt denies any headache, chest pain, shortness of breath, diaphoresis, or recent illness. Pt states he feels fine. Pt doesn't understand why EMS was called. Onset: Sudden Duration: Hour(s): (4) Location: Reports: Generalized Severity: Mild Improves with: Reports: None Worsens with: Reports: None Associated Symptoms: Reports: No Other Symptoms. Denies: Confusion, Chest Pain , Diaphoresis, Fever/Chills, Headaches, Nausea/Vomiting, Shortness of Breath, Syncope, Weakness - Related Data Allergies Allergy/AdvReac Type Severity Reaction Status Date / Time omeprazole magnesium Allergy Intermediate Cannot Verified 01/28/18 19:38 [From Prilosec] Remember cimetidine [From Tagamet] Allergy Cannot Verified 01/28/18 19:38 Remember cimetidine HCl [From Tagamet] Allergy Cannot Verified 01/28/18 19:38 Remember codeine Allergy Rash Verified 01/28/18 19:38 omeprazole [From Prilosec] Allergy Cannot Verified 01/28/18 19:38 Remember Home Meds: Home Meds Albuterol [Ventolin HFA] 1 inhaler INH Q4H PRN #1 inhaler 01/14/16 [Rx] Allopurinol [Zyloprim] 300 mg PO DAILY #90 tablet 01/14/16 [Rx] Furosemide [Lasix] 20 mg PO DAILY #90 tablet 01/14/16 [Rx] Tamsulosin [Flomax] 0.4 mg PO QAM #90 cap.er 01/14/16 [Rx] metFORMIN [Glucophage] 1,000 mg PO BIDM #90 tablet 01/14/16 [Rx] Lisinopril 20 mg PO BIDMEALS 10/10/16 [History] Metoprolol Tartrate [Lopressor] 25 mg PO BID 10/10/16 [History] Gemfibrozil [Lopid] 600 mg PO BIDAC 08/16/17 [History] Simethicone [Gas-X] 125 mg PO TIDMEALS 08/16/17 [History] Simvastatin [Zocor] 20 mg PO DAILY 08/16/17 [History] busPIRone [Buspar] 10 mg PO BIDMEALS 08/16/17 [History] chlordiazePOXIDE [Librium] 10 mg PO BIDMEALS 08/16/17 [History] Acetaminophen [Tylenol Arthritis] 1,300 mg PO TID PRN 01/28/18 [History] Esomeprazole [NexIUM] 40 mg PO BID 01/28/18 [History] Past Medical History HEENT History: Reports: Cataract, Impaired Vision Cardiovascular History: Reports: High Cholesterol, Hypertension, [place] Respiratory History: Reports: Pneumonia, Recurrent Gastrointestinal History: Reports: Chronic Constipation, GERD Genitourinary History: Reports: BPH Musculoskeletal History: Reports: Arthritis, Back Pain, Chronic Psychiatric History: Reports: Anxiety, Dementia, Depression, Mood Swings, Panic Attack Endocrine/Metabolic History: Reports: Diabetes, Type II, Obesity/BMI 30+ - Infectious Disease History Infectious Disease History: Reports: Measles - Past Surgical History HEENT Surgical History: Reports: Cataract Surgery Respiratory Surgical History: Reports: None GI Surgical History: Reports: Cholecystectomy, Colonoscopy, EGD, Hernia, Abdominal Social & Family History - Family History HEENT: Reports: None Cardiac: Reports: Hypertension, [place] Respiratory: Reports: None GI: Reports: None : Reports: None OBGYN: Reports: None Musculoskeletal: Reports: None Neurological: Reports: None Psychiatric: Reports: None Endocrine/Metabolic: Reports: None Hematologic: Reports: None Immunologic: Reports: None Dermatologic: Reports: None Oncologic: Reports: Prostate - Caffeine Use Caffeine Use: Reports: Coffee - Living Situation & Occupation Living situation: Reports: Occupation: Retired ED ROS GENERAL - Review of Systems Review Of Systems: See Below Constitutional: Reports: No Symptoms HEENT: Reports: No Symptoms Respiratory: Reports: No Symptoms Cardiovascular: Reports: No Symptoms Endocrine: Reports: No Symptoms GI/Abdominal: Reports: No Symptoms : Reports: No Symptoms Musculoskeletal: Reports: No Symptoms Skin: Reports: No Symptoms Neurological: Reports: No Symptoms, Trouble Speaking Psychiatric: Reports: No Symptoms Hematologic/Lymphatic: Reports: No Symptoms Immunologic: Reports: No Symptoms ED EXAM, GENERAL - Physical Exam Exam: See Below Exam Limited By: No Limitations General Appearance: Alert, WD/WN, No Apparent Distress Eye Exam: Bilateral Eye: EOMI, PERRL Throat/Mouth: Normal Inspection, Normal Lips, Normal Teeth, Normal Gums, Normal Oropharynx, Normal Voice, No Airway Compromise Head: Atraumatic, Normocephalic Neck: Normal Inspection, Supple, Non-Tender, Full Range of Motion Respiratory/Chest: No Respiratory Distress, Lungs Clear, Normal Breath Sounds, No Accessory Muscle Use, Chest Non-Tender Cardiovascular: Normal Peripheral Pulses, Regular Rate, Rhythm, No Edema, No Gallop, No JVD, No Murmur, No Rub GI/Abdominal: Normal Bowel Sounds, Soft, Non-Tender, No Organomegaly, No Distention, No Abnormal Bruit, No Mass Back Exam: Normal Inspection, Full Range of Motion, NT Extremities: Normal Inspection, Normal Range of Motion, Non-Tender, Normal Capillary Refill, No Pedal Edema Neurological: Alert, Oriented, CN II-XII Intact, Normal Cognition, Normal Gait, Normal Reflexes, No Motor/Sensory Deficits Psychiatric: Normal Affect, Normal Mood Skin Exam: Warm, Dry, Intact, Normal Color, No Rash Lymphatic: No Adenopathy EKG INTERPRETATION EKG Date: 01/28/18 Time: 20:13 Rhythm: NSR Rate (Beats/Min): 53 [place]: LAD-Left [place] Deviation P-Wave: Present QRS: LBBB ST-T: Normal QT: Normal Comparison: No Change Course - Vital Signs Last Recorded V/S: Last Vital Signs Temp 35.8 C 01/28/18 20:40 Pulse 56 L 01/28/18 20:40 Resp 22 H 01/28/18 20:40 BP 134/85 01/28/18 20:40 Pulse Ox 94 L 01/28/18 20:40 - Orders/Labs/Meds Orders: Active Orders 24 hr Category Date Time Status Cardiac Monitoring [RC] . DIRECTED Care 01/28/18 19:38 Active EKG Documentation Completion [RC] ASDIRECTED Care 01/28/18 19:38 Active Oxygen Therapy Adult [Oxygen Therapy, ED] [RC] Care 01/28/18 19:38 Active ASDIRECTED Peripheral IV Care [RC] . DIRECTED Care 01/28/18 19:39 Active Chest 1V Frontal [CR] Stat Exams 01/28/18 19:37 Ordered Head wo Cont [CT] Stat Exams 01/28/18 19:37 Ordered URINALYSIS W/MICROSCOPIC [UA W/MICROSCOPIC] [URIN] Stat Lab 01/28/18 20:10 Ordered Sodium Chloride 0.9% [Syrex Flush] Med 01/28/18 19:38 Active 5 ml FLUSH Q8HR PRN Peripheral IV Insertion Adult [OM.PC] Routine Oth 01/28/18 19:38 Ordered EKG 12 Lead [EK] Routine Ther 01/28/18 19:37 Ordered Medication Orders Sodium Chloride (Syrex Flush) 5 ml FLUSH Q8HR PRN PRN Reason: Keep Vein Open Labs: Laboratory Tests 01/28/18 01/28/18 01/28/18 Range/Units 19:50 19:50 19:50 WBC 5.5 (5.0-10.0) 10^3/uL RBC 4.48 L (4.50-6.00) 10^6/uL Hgb 12.9 L (13.0-17.0) g/dL Hct 38.8 L (40.0-52.0) % MCV 86.6 D (82.0-92.0) fL MCH 28.8 (27.0-31.0) pg MCHC 33.2 (32.0-36.0) g/dL RDW 15.6 H (11.5-14.5) % Plt Count 184 (150-300) 10^3/uL MPV 7.0 L (7.4-10.4) fL Neut % (Auto) 59.0 (50.0-70.0) % Lymph % (Auto) 29.6 (20.0-40.0) % [place] % (Auto) 8.6 H (2.0-8.0) % Eos % (Auto) 2.6 (1.0-3.0) % Baso % (Auto) 0.2 (0.0-1.0) % Neut # (Auto) 3.3 (2.5-7.0) 10^3/uL Lymph # (Auto) 1.6 (1.0-4.0) 10^3/uL [place] # (Auto) 0.5 (0.1-0.8) 10^3/uL Eos # (Auto) 0.1 (0.1-0.3) 10^3/uL Baso # (Auto) 0.0 (0.0-0.1) 10^3/uL PT 10.8 (8.9-11.4) SEC INR 1.1 (0.9-1.1) APTT 26.6 (20.8-31.2) SEC Sodium 146 H (136-145) mmol/L Potassium 2.9 L (3.3-5.3) mmol/L Chloride 106 (98-115) mmol/L Carbon Dioxide 27.1 (21.0-32.0) mmol/L BUN 13 (6-25) mg/dL Creatinine 1.02 (0.51-1.17) mg/dL Est Cr Clr Drug Dosing 64.46 mL/min Estimated GFR (MDRD) > 60 mL/min Glucose 161 H (70-110) mg/dL Calcium 8.1 L (8.7-10.3) mg/dL Total Bilirubin 0.4 (0.2-1.0) mg/dL AST 35 (15-37) U/L ALT 20 (12-78) U/L Alkaline Phosphatase 83 (46-116) IU/L Creatine Kinase 33 (26-276) U/L CK-MB (CK-2) 0.60 (0.00-4.30) ng/mL Troponin I < 0.04 (0.00-0.070) ng/mL Total Protein 6.8 (6.4-8.2) g/dL Albumin 3.03 (3.00-4.80) g/dL Specimen Type Urine Color (YELLOW) Urine Appearance (CLEAR) Urine pH (5.0-9.0) Ur Specific [place] (1.005-1.030) Urine Protein (NEGATIVE) mg/dL Urine Glucose (UA) (NEGATIVE) mg/dL Urine Ketones (NEGATIVE) mg/dL Urine Occult Blood (NEGATIVE) Urine Nitrite (NEGATIVE) Urine Bilirubin (NEGATIVE) Urine Urobilinogen (0.2-1.0) E.U./dL Ur Leukocyte Esterase (NEGATIVE) Urine RBC /HPF Urine WBC /HPF Ur Epithelial Cells /LPF Hyaline Casts (NEGATIVE) /LPF 01/28/18 Range/Units 20:20 WBC (5.0-10.0) 10^3/uL RBC (4.50-6.00) 10^6/uL Hgb (13.0-17.0) g/dL Hct (40.0-52.0) % MCV (82.0-92.0) fL MCH (27.0-31.0) pg MCHC (32.0-36.0) g/dL RDW (11.5-14.5) % Plt Count (150-300) 10^3/uL MPV (7.4-10.4) fL Neut % (Auto) (50.0-70.0) % Lymph % (Auto) (20.0-40.0) % [place] % (Auto) (2.0-8.0) % Eos % (Auto) (1.0-3.0) % Baso % (Auto) (0.0-1.0) % Neut # (Auto) (2.5-7.0) 10^3/uL Lymph # (Auto) (1.0-4.0) 10^3/uL [place] # (Auto) (0.1-0.8) 10^3/uL Eos # (Auto) (0.1-0.3) 10^3/uL Baso # (Auto) (0.0-0.1) 10^3/uL PT (8.9-11.4) SEC INR (0.9-1.1) APTT (20.8-31.2) SEC Sodium (136-145) mmol/L Potassium (3.3-5.3) mmol/L Chloride (98-115) mmol/L Carbon Dioxide (21.0-32.0) mmol/L BUN (6-25) mg/dL Creatinine (0.51-1.17) mg/dL Est Cr Clr Drug Dosing mL/min Estimated GFR (MDRD) mL/min Glucose (70-110) mg/dL Calcium (8.7-10.3) mg/dL Total Bilirubin (0.2-1.0) mg/dL AST (15-37) U/L ALT (12-78) U/L Alkaline Phosphatase (46-116) IU/L Creatine Kinase (26-276) U/L CK-MB (CK-2) (0.00-4.30) ng/mL Troponin I (0.00-0.070) ng/mL Total Protein (6.4-8.2) g/dL Albumin (3.00-4.80) g/dL Specimen Type Urinvoid Urine Color Yellow (YELLOW) Urine Appearance Slightly cloudy H (CLEAR) Urine pH 5.5 (5.0-9.0) Ur Specific [place] >= 1.030 (1.005-1.030) Urine Protein >=300 H (NEGATIVE) mg/dL Urine Glucose (UA) Negative (NEGATIVE) mg/dL Urine Ketones Negative (NEGATIVE) mg/dL Urine Occult Blood Large H (NEGATIVE) Urine Nitrite Negative (NEGATIVE) Urine Bilirubin Negative (NEGATIVE) Urine Urobilinogen 0.2 (0.2-1.0) E.U./dL Ur Leukocyte Esterase Negative (NEGATIVE) Urine RBC >100 H /HPF Urine WBC 5-10 H /HPF Ur Epithelial Cells Few /LPF Hyaline Casts Few H (NEGATIVE) /LPF Meds: Medications Generic Name Dose Route Start Last Admin Trade Name Freq PRN Reason Stop Dose Admin Sodium Chloride 5 ml 01/28/18 19:38 Syrex Flush FLUSH Q8HR PRN Keep Vein Open Discontinued Medications Generic Name Dose Route Start Last Admin Trade Name Freq PRN Reason Stop Dose Admin Aspirin 324 mg 01/28/18 20:23 01/28/18 20:28 Aspirin PO 01/28/18 20:24 324 mg ONETIME ONE Administration - Radiology Interpretation Free Text/Narrative:: CT Head- NAD CXR- NAD Departure - Departure Time of Disposition: 20:52 Disposition: Refer to Observation Condition: Fair Clinical Impression: Hypokalemia, Dehydration Transient ischemic attack (TIA) Qualifiers: Transient cerebral ischemia type: unspecified Qualified Code(s): G45.9 - Transient cerebral ischemic attack, unspecified - Discharge Information Referrals: Georgia Zabala MD [Primary Care Provider] - Forms: ED Department Discharge - My Orders Last 24 Hours: My Active Orders 01/28/18 19:37 Chest 1V Frontal [CR] Stat Head wo Cont [CT] Stat EKG 12 Lead [EK] Routine 01/28/18 19:38 Cardiac Monitoring [RC] . DIRECTED EKG Documentation Completion [RC] ASDIRECTED Oxygen Therapy Adult [Oxygen Therapy, ED] [RC] ASDIRECTED Sodium Chloride 0.9% [Syrex Flush] 5 ml FLUSH Q8HR PRN Peripheral IV Insertion Adult [OM.PC] Routine 01/28/18 19:39 Peripheral IV Care [RC] . DIRECTED 01/28/18 20:10 URINALYSIS W/MICROSCOPIC [UA W/MICROSCOPIC] [URIN] Stat - Assessment/Plan Last 24 Hours: My Active Orders 01/28/18 19:37 Chest 1V Frontal [CR] Stat Head wo Cont [CT] Stat EKG 12 Lead [EK] Routine 01/28/18 19:38 Cardiac Monitoring [RC] . DIRECTED EKG Documentation Completion [RC] ASDIRECTED Oxygen Therapy Adult [Oxygen Therapy, ED] [RC] ASDIRECTED Sodium Chloride 0.9% [Syrex Flush] 5 ml FLUSH Q8HR PRN Peripheral IV Insertion Adult [OM.PC] Routine 01/28/18 19:39 Peripheral IV Care [RC] . DIRECTED 01/28/18 20:10 URINALYSIS W/MICROSCOPIC [UA W/MICROSCOPIC] [URIN] Stat Assessment:: 1. TIA- R/O CVA 2. Hypokalemia 3. mild dehydration Plan: 1. 23 hour Obs- [place] 2. replace K 3. NS @125cc/hr with 40meq potassium 4. repeat labs and trop I in am 5. supportive care
[2018-01-28] MEDS ORDERED: Aspirin 81 MG Tab.Chew PO ONE (20:23)
[2018-01-28 20:29] LABS: CHLORIDE,CL 106 mmol/L (98-115); SODIUM,NA 146 mmol/L (136-145)
[2018-01-28] MEDS ORDERED: Acetaminophen/HYDROcodone 325-5 MG Tab PO PRN (20:59)
[2018-01-28] MEDS: Sodium Chloride 0.9% with KCl 1,000 ML IV SCH (21:35)
[2018-01-28] MEDS ORDERED: Acetaminophen 650 MG Tab.ER PO PRN (23:18)
[2018-01-28] MEDS ORDERED: Albuterol HFA 18 Gm Inhaler INH PRN (23:18)
[2018-01-28] MEDS ORDERED: Atropine 0.1 MG/ML 10 ML Syringe IVPUSH PRN (23:29)
[2018-01-28] MEDS ORDERED: Nitroglycerin 0.4 MG Tab.SL SL PRN (23:29)
[2018-01-28] MEDS ORDERED: Lidocaine 2% 100 MG/5 ML Syringe IVPUSH PRN (23:29)
[2018-01-28] MEDS ORDERED: EPINEPHrine 1:10,000 1 MG/10 ML Syringe IVPUSH PRN (23:29)
[2018-01-29] MEDS: Sodium Chloride 0.9% with KCl 1,000 ML IV SCH (05:20)
[2018-01-29] MEDS ORDERED: Esomeprazole 40 MG Cap PO SCH (07:00)
[2018-01-29 08:12] LABS: CHLORIDE,CL 107 mmol/L (98-115); SODIUM,NA 147 mmol/L (136-145)
[2018-01-29] MEDS: metFORMIN 500 MG Tab PO SCH ×2 (08:58→18:01)
[2018-01-29] MEDS: Aspirin 325 MG Tab.EC PO SCH (08:58)
[2018-01-29] MEDS: Tamsulosin 0.4 MG Cap.ER PO SCH (08:58)
[2018-01-29] MEDS: chlordiazePOXIDE 10 MG Cap PO SCH ×2 (08:58→18:02)
[2018-01-29] MEDS: Furosemide 20 MG Tab PO SCH (08:59)
[2018-01-29] MEDS: Metoprolol Tartrate 25 MG Tab PO SCH ×2 (09:00→21:10)
[2018-01-29] MEDS: Lisinopril 20 MG Tab PO SCH ×2 (09:00→18:03)
[2018-01-29] MEDS: busPIRone 10 MG Tab PO SCH ×2 (09:20→18:01)
[2018-01-29] MEDS ORDERED: traMADol 50 MG Tab PO PRN (11:08)
[2018-01-29] MEDS ORDERED: Pantoprazole 40 MG Tab.CR PO SCH (11:25)
[2018-01-29] MEDS ORDERED: Simethicone 80 MG Tab.Chew PO PRN (12:00)
[2018-01-29] MEDS: Allopurinol 100 MG Tab PO SCH (12:16)
[2018-01-29] MEDS ORDERED: Albuterol HFA 18 Gm Inhaler INH PRN (12:25)
[2018-01-29] MEDS ORDERED: Acetaminophen 500 MG Tab PO PRN (12:25)
--- NOTE | 2018-01-29 12:26 | PCM.HP ---
H&P History of Present Illness - General Date of Service: 01/29/18 Admit Problem/Dx: Transient ischemic attack Source of Information: Patient, Family, Old Records, Provider, RN Notes Reviewed (Luis Antonio Rankin PA-C (ED provider)) - History of Present Illness Initial Comments - Free Text/Narative: Mr. Luu was reportedly in his usual state of health when he laid down for a nap at around 1300 on 01/28/18. His states he then awoke a couple hours later and noted he was difficult to understand so she called EMS, who states that there was obvious slurred speech, but no other focal neurological abnormalities. Upon arrival at the [facility] ED, his slurred speech had resolved and the patient denied any complaints. Exam was without abnormality. Work-up was notable for hypokalemia, evidence for mild dehydration with urinary specific gravity >1.030, normal troponin and EKG, and normal CT head. He was recommended to be admitted to observation for TIA. This morning, Mr. Luu continues to deny any complaints and states he still doesn't understand why he was brought to the hospital and desires leaving as soon as possible. His at bedside states that he didn't have any other abnormalities yesterday when he had the slurred speech. He denies any recent or current complaints of headache, vision changes, dysphagia, chest pain, palpitations, shortness of breath, weakness, numbness, or other concerns. left knee Pain Score (Numeric/FACES): 5 - Related Data Allergies/Adverse Reactions: Allergies Allergy/AdvReac Type Severity Reaction Status Date / Time omeprazole magnesium Allergy Intermediate Cannot Verified 01/28/18 19:38 [From Prilosec] Remember cimetidine [From Tagamet] Allergy Cannot Verified 01/28/18 19:38 Remember cimetidine HCl [From Tagamet] Allergy Cannot Verified 01/28/18 19:38 Remember codeine Allergy Rash Verified 01/28/18 19:38 omeprazole [From Prilosec] Allergy Cannot Verified 01/28/18 19:38 Remember Home Medications: Home Meds Albuterol [Ventolin HFA] 1 inhaler INH Q4H PRN #1 inhaler 01/14/16 [Rx] Furosemide [Lasix] 20 mg PO DAILY #90 tablet 01/14/16 [Rx] Tamsulosin [Flomax] 0.4 mg PO QAM #90 cap.er 01/14/16 [Rx] Lisinopril 20 mg PO BIDMEALS 10/10/16 [History] Metoprolol Tartrate [Lopressor] 25 mg PO BID 10/10/16 [History] Gemfibrozil [Lopid] 600 mg PO BIDAC 08/16/17 [History] Simethicone [Gas-X] 125 mg PO TIDMEALS PRN 08/16/17 [History] Simvastatin [Zocor] 20 mg PO DAILY 08/16/17 [History] busPIRone [Buspar] 10 mg PO BIDMEALS 08/16/17 [History] chlordiazePOXIDE [Librium] 10 mg PO BIDMEALS 08/16/17 [History] Acetaminophen [Tylenol Arthritis] 1,300 mg PO TID PRN 01/28/18 [History] Allopurinol [Zyloprim] 300 mg PO DAILY 01/29/18 [History] Esomeprazole [NexIUM] 40 mg PO ACBREAKFAST 01/29/18 [History] metFORMIN HCl [Metformin HCl] 1,000 mg PO BIDMEALS 01/29/18 [History] Past Medical History HEENT History: Reports: Cataract, Impaired Vision Cardiovascular History: Reports: High Cholesterol, Hypertension, PA Respiratory History: Reports: Pneumonia, Recurrent Gastrointestinal History: Reports: Chronic Constipation, GERD Genitourinary History: Reports: BPH Musculoskeletal History: Reports: Arthritis, Back Pain, Chronic Other Musculoskeletal History: chronic knee pain Neurological History: Reports: TIA, Other (See Below) Other Neuro History: this admit Psychiatric History: Reports: Anxiety, Dementia, Depression, Mood Swings, Panic Attack Endocrine/Metabolic History: Reports: Diabetes, Type II, Obesity/BMI 30+ Dermatologic History: Reports: Other (See Below) Other Dermatologic History: scattered scabs, picks/scratches at skin - Infectious Disease History Infectious Disease History: Reports: Measles - Past Surgical History HEENT Surgical History: Reports: Cataract Surgery Respiratory Surgical History: Reports: None GI Surgical History: Reports: Cholecystectomy, Colonoscopy, EGD, Hernia, Abdominal Social & Family History - Family History HEENT: Reports: None Cardiac: Reports: Hypertension, PA Respiratory: Reports: None GI: Reports: None : Reports: None OBGYN: Reports: None Musculoskeletal: Reports: None Neurological: Reports: None Psychiatric: Reports: None Endocrine/Metabolic: Reports: None Hematologic: Reports: None Immunologic: Reports: None Dermatologic: Reports: None Oncologic: Reports: Prostate - Tobacco Use Smoking Status *Q: Former Smoker Years of Tobacco use: 10 Used Tobacco, but Quit: Yes Month/Year Tobacco Last Used: 08/1960 - Caffeine Use Caffeine Use: Reports: Coffee, Soda - Recreational Drug Use Recreational Drug Use: No - Living Situation & Occupation Living situation: Reports: Occupation: Retired H&P Review of Systems - Review of Systems: Review Of Systems: See Below General: Denies: Fever, Chills, Weakness, Fatigue, Weight Loss, Weight Gain HEENT: Denies: Dysphasia, Headaches, Hearing Changes, Rhinitis, Sore Throat, Vertigo, Visual Changes Pulmonary: Denies: Shortness of Breath, Wheezing, Cough Cardiovascular: Denies: Chest Pain, Palpitations, Lightheadedness, Syncope Gastrointestinal: Denies: Abdominal Pain, Constipation, Diarrhea, Decreased Appetite, Difficulty Swallowing Genitourinary: Denies: Dysuria, Frequency, Hematuria Musculoskeletal: Denies: Neck Pain, Back Pain, Joint Pain Skin: Denies: Bruising, Rash, Wound Psychiatric: Denies: Confusion, Mood Lability, Hallucinations Neurological: Denies: Confusion, Dizziness, Headache, Numbness, Paresthesia, Seizure, Syncope, Tingling, Tremors, Trouble Speaking, Weakness, Gait Disturbance Exam - Exam Exam: See Below - Vital Signs Vital Signs: Last Vital Signs Temp 36.7 C 01/29/18 10:57 Pulse 52 L 01/29/18 10:57 Resp 24 H 01/29/18 10:57 BP 171/90 H 01/29/18 10:57 Pulse Ox 95 01/29/18 10:57 Weight: 126.28 kg - Exam Physical Exam Comments:: GENERAL: Well-appearing elderly white male sitting in bedside chair in no acute distress. and friend at bedside. HEENT: Normocephalic, atraumatic. Conjunctiva clear. Nares patent without discharge. Mucous membranes moist, posterior pharynx unremarkable. NECK: Supple, no masses. CV: Mild bradycardia, regular rhythm, no murmurs, rubs, or gallops. 2+ radial pulses. PULMONARY: Normal effort, clear to auscultation bilaterally, no wheezes, rales, or rhonchi. ABDOMEN: Positive bowel sounds, soft, nontender, nondistended. EXTREMITIES: 1+ edema to lower extremities to mid-seo bilaterally. No cyanosis or clubbing. MUSCULOSKELETAL: Moves all extremities well. NEUROLOGICAL: CN II-XII intact (with exception of R eye extraocular movements, which patient states is chronic). Sensation intact to light touch in distal extremities. Strength 5/5 in distal extremities. Finger-nose and heel-seo testing intact. DERMATOLOGIC: No rashes or suspicious lesions in exposed areas. PSYCHIATRIC: Alert, interactive, cantankerous affect. - Patient Data Lab Results Last 24 hrs: Laboratory Results - last 24 hr 01/28/18 01/28/18 01/28/18 Range/Units 19:50 19:50 19:50 WBC 5.5 (5.0-10.0) 10^3/uL RBC 4.48 L (4.50-6.00) 10^6/uL Hgb 12.9 L (13.0-17.0) g/dL Hct 38.8 L (40.0-52.0) % MCV 86.6 D (82.0-92.0) fL MCH 28.8 (27.0-31.0) pg MCHC 33.2 (32.0-36.0) g/dL RDW 15.6 H (11.5-14.5) % Plt Count 184 (150-300) 10^3/uL MPV 7.0 L (7.4-10.4) fL Neut % (Auto) 59.0 (50.0-70.0) % Lymph % (Auto) 29.6 (20.0-40.0) % Ray % (Auto) 8.6 H (2.0-8.0) % Eos % (Auto) 2.6 (1.0-3.0) % Baso % (Auto) 0.2 (0.0-1.0) % Neut # (Auto) 3.3 (2.5-7.0) 10^3/uL Lymph # (Auto) 1.6 (1.0-4.0) 10^3/uL Ray # (Auto) 0.5 (0.1-0.8) 10^3/uL Eos # (Auto) 0.1 (0.1-0.3) 10^3/uL Baso # (Auto) 0.0 (0.0-0.1) 10^3/uL PT 10.8 (8.9-11.4) SEC INR 1.1 (0.9-1.1) APTT 26.6 (20.8-31.2) SEC Sodium 146 H (136-145) mmol/L Potassium 2.9 L (3.3-5.3) mmol/L Chloride 106 (98-115) mmol/L Carbon Dioxide 27.1 (21.0-32.0) mmol/L BUN 13 (6-25) mg/dL Creatinine 1.02 (0.51-1.17) mg/dL Est Cr Clr Drug Dosing 64.46 mL/min Estimated GFR (MDRD) > 60 mL/min Glucose 161 H (70-110) mg/dL Hemoglobin A1c (4.3-5.7) % Calcium 8.1 L (8.7-10.3) mg/dL Total Bilirubin 0.4 (0.2-1.0) mg/dL AST 35 (15-37) U/L ALT 20 (12-78) U/L Alkaline Phosphatase 83 (46-116) IU/L Creatine Kinase 33 (26-276) U/L CK-MB (CK-2) 0.60 (0.00-4.30) ng/mL Troponin I < 0.04 (0.00-0.070) ng/mL Total Protein 6.8 (6.4-8.2) g/dL Albumin 3.03 (3.00-4.80) g/dL Specimen Type Urine Color (YELLOW) Urine Appearance (CLEAR) Urine pH (5.0-9.0) Ur Specific [place] (1.005-1.030) Urine Protein (NEGATIVE) mg/dL Urine Glucose (UA) (NEGATIVE) mg/dL Urine Ketones (NEGATIVE) mg/dL Urine Occult Blood (NEGATIVE) Urine Nitrite (NEGATIVE) Urine Bilirubin (NEGATIVE) Urine Urobilinogen (0.2-1.0) E.U./dL Ur Leukocyte Esterase (NEGATIVE) Urine RBC /HPF Urine WBC /HPF Ur Epithelial Cells /LPF Hyaline Casts (NEGATIVE) /LPF 01/28/18 01/29/18 01/29/18 Range/Units 20:20 07:15 07:15 WBC 5.7 (5.0-10.0) 10^3/uL RBC 4.54 (4.50-6.00) 10^6/uL Hgb 12.6 L (13.0-17.0) g/dL Hct 39.5 L (40.0-52.0) % MCV 87.0 (82.0-92.0) fL MCH 27.8 (27.0-31.0) pg MCHC 31.9 L (32.0-36.0) g/dL RDW 15.4 H (11.5-14.5) % Plt Count 170 (150-300) 10^3/uL MPV 7.4 (7.4-10.4) fL Neut % (Auto) 62.8 (50.0-70.0) % Lymph % (Auto) 26.4 (20.0-40.0) % Ray % (Auto) 8.7 H (2.0-8.0) % Eos % (Auto) 1.6 (1.0-3.0) % Baso % (Auto) 0.5 (0.0-1.0) % Neut # (Auto) 3.6 (2.5-7.0) 10^3/uL Lymph # (Auto) 1.5 (1.0-4.0) 10^3/uL Ray # (Auto) 0.5 (0.1-0.8) 10^3/uL Eos # (Auto) 0.1 (0.1-0.3) 10^3/uL Baso # (Auto) 0.0 (0.0-0.1) 10^3/uL PT (8.9-11.4) SEC INR (0.9-1.1) APTT (20.8-31.2) SEC Sodium 147 H (136-145) mmol/L Potassium 3.7 (3.3-5.3) mmol/L Chloride 107 (98-115) mmol/L Carbon Dioxide 30.8 (21.0-32.0) mmol/L BUN 12 (6-25) mg/dL Creatinine 0.77 (0.51-1.17) mg/dL Est Cr Clr Drug Dosing 85.38 mL/min Estimated GFR (MDRD) > 60 mL/min Glucose 132 H (70-110) mg/dL Hemoglobin A1c 6.8 H (4.3-5.7) % Calcium 8.6 L (8.7-10.3) mg/dL Total Bilirubin (0.2-1.0) mg/dL AST (15-37) U/L ALT (12-78) U/L Alkaline Phosphatase (46-116) IU/L Creatine Kinase (26-276) U/L CK-MB (CK-2) (0.00-4.30) ng/mL Troponin I 0.10 H* (0.00-0.070) ng/mL Total Protein (6.4-8.2) g/dL Albumin (3.00-4.80) g/dL Specimen Type Urinvoid Urine Color Yellow (YELLOW) Urine Appearance Slightly cloudy H (CLEAR) Urine pH 5.5 (5.0-9.0) Ur Specific [place] >= 1.030 (1.005-1.030) Urine Protein >=300 H (NEGATIVE) mg/dL Urine Glucose (UA) Negative (NEGATIVE) mg/dL Urine Ketones Negative (NEGATIVE) mg/dL Urine Occult Blood Large H (NEGATIVE) Urine Nitrite Negative (NEGATIVE) Urine Bilirubin Negative (NEGATIVE) Urine Urobilinogen 0.2 (0.2-1.0) E.U./dL Ur Leukocyte Esterase Negative (NEGATIVE) Urine RBC >100 H /HPF Urine WBC 5-10 H /HPF Ur Epithelial Cells Few /LPF Hyaline Casts Few H (NEGATIVE) /LPF Result Diagrams: 01/29/18 07:15 01/29/18 07:15 Problem List Initiated/Reviewed/Updated: Yes Orders Last 24hrs: Active Orders 24 hr Category Date Time Status Patient Status [ADT] Routine ADT 01/28/18 20:54 Ordered Cardiac Monitoring [RC] . DIRECTED Care 01/28/18 19:38 Inactive Cardiac Monitoring [RC] 0300,0700,1100,1500,1900,2300 Care 01/28/18 20:55 Active EKG Documentation Completion [RC] ASDIRECTED Care 01/28/18 19:38 Inactive Oxygen Therapy [RC] .PRN Care 01/28/18 20:54 Active Peripheral IV Care [RC] . DIRECTED Care 01/28/18 20:55 Active Peripheral IV Care [RC] QSHIFT Care 01/28/18 19:39 Active Up With Assistance [RC] DAILY Care 01/28/18 20:54 Active Vital Signs [RC] 0300,0700,1100,1500,1900,2300 Care 01/28/18 20:54 Active PT Evaluation and Treatment [CONS] Routine Cons 01/29/18 11:11 Active 2 Gram Sodium Diet [DIET] Diet 01/29/18 Breakfast Active MISCELLANEOUS CULT [MREF] Routine Lab 01/28/18 20:50 Received TROPONIN I [CHEM] Routine Lab 01/29/18 11:40 Received Acetaminophen [Tylenol Arthritis Pain] Med 01/29/18 12:25 Ordered 1,000 mg PO TID PRN Acetaminophen [Tylenol Arthritis Pain] Med 01/28/18 23:18 Stop Req 1,300 mg PO TID PRN Albuterol [Ventolin HFA] Med 01/28/18 23:18 Stop Req 0 gm INH Q4H PRN Albuterol [Ventolin HFA] Med 01/29/18 12:25 Ordered 1 gm INH Q4H PRN Allopurinol [Zyloprim] Med 01/29/18 11:30 Active 300 mg PO DAILY Aspirin [Ecotrin] Med 01/29/18 09:00 Active 325 mg PO DAILY Atropine [Atropine 0.1 MG/ML] Med 01/28/18 23:29 Active 0 mg IVPUSH ASDIRECTED PRN EPINEPHrine [EPINEPHrine 1:10,000] Med 01/28/18 23:29 Active 1 mg IVPUSH ASDIRECTED PRN Furosemide [Lasix] Med 01/29/18 09:00 Active 20 mg PO DAILY Lidocaine 2% [Xylocaine 2%] Med 01/28/18 23:29 Active 0 mg IVPUSH ASDIRECTED PRN Lisinopril [Prinivil] Med 01/29/18 08:00 Active 20 mg PO BIDMEALS Metoprolol Tartrate [Lopressor] Med 01/29/18 09:00 Active 25 mg PO BID Nitroglycerin [Nitrostat] Med 01/28/18 23:29 Active 0.4 mg SL ASDIRECTED PRN Pantoprazole [ProTONIX] Med 01/29/18 17:00 Active 40 mg PO BID@0700,1700 Simethicone Med 01/29/18 12:00 Active 120 mg PO TIDMEALS PRN Sodium Chloride 0.9% [Syrex Flush] Med 01/28/18 20:54 Active 5 ml FLUSH Q8HR PRN Sodium Chloride 0.9% with KCl [Normal Saline with 40 Med 01/28/18 21:00 Active mEq KCl] 1,000 ml IV ASDIRECTED Tamsulosin [Flomax] Med 01/29/18 09:00 Active 0.4 mg PO QAM atorvaSTATin [Lipitor] Med 01/29/18 21:00 Active 40 mg PO BEDTIME busPIRone [Buspar] Med 01/29/18 08:00 Active 10 mg PO BIDMEALS chlordiazePOXIDE [Librium] Med 01/29/18 08:00 Active 10 mg PO BIDMEALS metFORMIN [Glucophage] Med 01/29/18 08:00 Active 1,000 mg PO BIDM traMADol [Ultram] Med 01/29/18 11:08 Active 50 mg PO Q8H PRN Peripheral IV Insertion Adult [OM.PC] Routine Oth 01/28/18 19:38 Ordered Peripheral IV Insertion Adult [OM.PC] Routine Oth 01/28/18 20:54 Ordered Resuscitation Status Routine Resus Stat 01/28/18 20:54 Ordered Medication Orders Allopurinol (Zyloprim) 300 mg PO DAILY [facility] Last Admin: 01/29/18 12:16 Dose: 300 mg Aspirin (Ecotrin) 325 mg PO DAILY [facility] Last Admin: 01/29/18 08:58 Dose: 325 mg Atorvastatin Calcium (Lipitor) 40 mg PO BEDTIME [facility] Atropine Sulfate (Atropine 0.1 Mg/Ml) 0 mg IVPUSH ASDIRECTED PRN PRN Reason: Heart Buspirone HCl (Buspar) 10 mg PO BIDMEALS [facility] Last Admin: 01/29/18 09:20 Dose: 10 mg Chlordiazepoxide HCl (Librium) 10 mg PO BIDMEALS [facility] Last Admin: 01/29/18 08:58 Dose: 10 mg Epinephrine HCl (Epinephrine 1:10,000) 1 mg IVPUSH ASDIRECTED PRN PRN Reason: Heart Furosemide (Lasix) 20 mg PO DAILY [facility] Last Admin: 01/29/18 08:59 Dose: 20 mg Potassium Chloride/Sodium Chloride (Normal Saline With 40 Meq Kcl) 1,000 mls @ 125 mls/hr IV ASDIRECTED [facility] Last Admin: 01/29/18 05:20 Dose: 125 mls/hr Infusion: 01/29/18 05:20 Dose: 125 mls/hr Admin: 01/28/18 21:35 Dose: 125 mls/hr Lidocaine HCl (Xylocaine 2%) 0 mg IVPUSH ASDIRECTED PRN PRN Reason: Heart Lisinopril (Prinivil) 20 mg PO BIDMEALS [facility] Last Admin: 01/29/18 09:00 Dose: 20 mg Metformin HCl (Glucophage) 1,000 mg PO BIDM [facility] Last Admin: 01/29/18 08:58 Dose: 1,000 mg Metoprolol Tartrate (Lopressor) 25 mg PO BID [facility] Last Admin: 01/29/18 09:00 Dose: 25 mg Nitroglycerin (Nitrostat) 0.4 mg SL ASDIRECTED PRN PRN Reason: Heart Pantoprazole Sodium (Protonix) 40 mg PO BID@0700,1700 [facility] Simethicone (Simethicone) 120 mg PO TIDMEALS PRN PRN Reason: Gas Sodium Chloride (Syrex Flush) 5 ml FLUSH Q8HR PRN PRN Reason: Keep Vein Open Last Admin: 01/28/18 21:41 Dose: 5 ml Tamsulosin HCl (Flomax) 0.4 mg PO QAM [facility] Last Admin: 01/29/18 08:58 Dose: 0.4 mg Tramadol HCl (Ultram) 50 mg PO Q8H PRN PRN Reason: Pain (severe 7-10) Assessment/Plan Comment:: HPI summary: Mr. Luu was reportedly in his usual state of health when he laid down for a nap at around 1300 on 01/28/18. His states he then awoke a couple hours later and noted he was difficult to understand so she called EMS, who states that there was obvious slurred speech, but no other focal neurological abnormalities. Total time of slurred speech was <60 minutes. ED course: Upon arrival at the [facility] ED, his slurred speech had resolved and the patient denied any complaints. Exam was without abnormality. Work-up was notable for hypokalemia, evidence for mild dehydration with urinary specific gravity >1.030, normal troponin and EKG, and normal CT head. He was recommended to be admitted to observation for TIA. Hospitalization problems and plan: # TIA: Symptom onset and resolution prior to arrival without hemorrhagic CVA on CT head. No recurrence of slurred speech or other neurological deficits. No swallowing concerns. No prior TIA or CVA. ABCD2 score = 5, placing him at moderate risk for stroke within the next 90 days. Telemetry without arrhythmia overnight. Recent lipid panel wnl obtained in the clinic within the past month. A1c today 6.8%. # HTN: On lisinopril, metoprolol, and furosemide as outpatient. Elevated since admission, but with interval improvement. # Elevated troponin: 0.10 this morning, up from <0.04 on admission. # Hypokalemia: 2.9 on admission, up to 3.7 this morning with supplementation overnight. # Anemia: Hgb 12.9 on admission, which is at baseline. Normocytic. # Hematuria and proteinuria: New onset without prior abnormality noted on UAs. - Continue neurological monitoring and telemetry - Continue outpatient lisinopril, metoprolol, and furosmide in addition to close monitoring of BPs with current goal of slow reduction from admission BPs in the setting of TIA - Increase to high dose statin with atorvastatin 40mg and discontinue gemfibrozil given concurrent use concerns - Increase ASA to 325mg daily - Discontinue IVF following 1L of NS with 40mEq KCl - Repeat troponin in 4 hours - CBC, BMP, magnesium, and UA tomorrow - Physical therapy evaluation Chronic, stable conditions: # GERD: Stable. Continue PPI. # BPH: Stable. Continue tamsulosin. # DMT2: A1c 6.8% Continue metformin. # HLD: Recent lipid panel wnl. See changes to regimen, as above. # Obesity: BMI 37. # MARCELLE: Stable. Continue buspirone. # Gout: Stable. Continue allopurinol. # OA: Stable. Continue Tylenol and tramadol. Hospitalization details: # FEN: Stop IVF following remainder of 1L NS with 40mEq KCl. Electrolytes now normal. Heart healthy diet. # PPX: Enoxaparin. # Code status: DNR/DNI. # Emergency contact: , who was updated at bedside this morning. # Disposition: Admit to observation for management of above. Anticipate discharge to home tomorrow if clinically stable, as patient adamantly declines consideration for assisted or [facility] care.
[2018-01-29] MEDS ORDERED: atorvaSTATin 40 MG Tab PO SCH (21:00)
[2018-01-30] MEDS: Lisinopril 20 MG Tab PO SCH (06:33)
[2018-01-30] MEDS ORDERED: Pantoprazole 40 MG Tab.CR PO SCH (07:30)
[2018-01-30 07:42] LABS: CHLORIDE,CL 107 mmol/L (98-115); SODIUM,NA 146 mmol/L (136-145)
[2018-01-30] MEDS: busPIRone 10 MG Tab PO SCH (08:07)
[2018-01-30] MEDS: metFORMIN 500 MG Tab PO SCH (08:07)
[2018-01-30] MEDS: Metoprolol Tartrate 25 MG Tab PO SCH (08:08)
[2018-01-30] MEDS: Aspirin 325 MG Tab.EC PO SCH (08:08)
[2018-01-30] MEDS: Tamsulosin 0.4 MG Cap.ER PO SCH (08:08)
[2018-01-30] MEDS: Furosemide 20 MG Tab PO SCH (08:08)
[2018-01-30] MEDS: Allopurinol 100 MG Tab PO SCH (08:09)
[2018-01-30] MEDS: chlordiazePOXIDE 10 MG Cap PO SCH (08:14)
[2018-01-30 08:20] VITALS: BP 173/86
--- NOTE | 2018-02-03 10:16 | PCM.DCSUM1 ---
Discharge Summary - Discharge Data Discharge Date: 01/30/18 Discharge Disposition: Home, Self-Care 01 Condition: Good - Patient Summary/Data Consults: Consultations 01/29/18 11:11 PT Evaluation and Treatment [CONS] Routine - Discharge Plan Prescriptions/Med Rec: Aspirin [Ecotrin] 325 mg PO DAILY #90 tablet. atorvaSTATin [Lipitor] 40 mg PO BEDTIME #30 tab Capsaicin [Arthritis Pain Relief] 42.5 gm TP TID #1 cream..g. Home Medications: Home Meds Albuterol [Ventolin HFA] 1 inhaler INH Q4H PRN #1 inhaler 01/14/16 [Rx] Furosemide [Lasix] 20 mg PO DAILY #90 tablet 01/14/16 [Rx] Tamsulosin [Flomax] 0.4 mg PO QAM #90 cap.er 01/14/16 [Rx] Lisinopril 20 mg PO BIDMEALS 10/10/16 [History] Metoprolol Tartrate [Lopressor] 25 mg PO BID 10/10/16 [History] Simethicone [Gas-X] 125 mg PO TIDMEALS PRN 08/16/17 [History] busPIRone [Buspar] 10 mg PO BIDMEALS 08/16/17 [History] chlordiazePOXIDE [Librium] 10 mg PO BIDMEALS 08/16/17 [History] Acetaminophen [Tylenol Arthritis] 1,300 mg PO TID PRN 01/28/18 [History] Allopurinol [Zyloprim] 300 mg PO DAILY 01/29/18 [History] Esomeprazole [NexIUM] 40 mg PO ACBREAKFAST 01/29/18 [History] metFORMIN HCl [Metformin HCl] 1,000 mg PO BIDMEALS 01/29/18 [History] Aspirin [Ecotrin] 325 mg PO DAILY #90 tablet. 01/30/18 [Rx] Capsaicin [Arthritis Pain Relief] 42.5 gm TP TID #1 cream..g. 01/30/18 [Rx] atorvaSTATin [Lipitor] 40 mg PO BEDTIME #30 tab 01/30/18 [Rx] Referrals: Naman Al, [employer]PER[employer] [Nurse Practitioner] - (anytime next week. 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 ) - Discharge Summary/Plan Comment DC Time >30 min.: Yes Discharge Summary/Plan Comment: History: 77 patient admitted into [facility] statust through the ED when his stated he then awoke from a nap and noted he was difficult to understand so she called EMS, who states that there was obvious slurred speech, but no other focal neurological abnormalities. Total time of slurred speech was <60 minutes. ED course: Upon arrival at the [facility] ED, his slurred speech had resolved and the patient denied any complaints. Exam was without abnormality. Work-up was notable for hypokalemia, evidence for mild dehydration with urinary specific gravity >1.030, normal troponin and EKG, and normal CT head. He was recommended to be admitted to observation for TIA. Final DX: TIA Question cardiac demand as troponin initial spike 0.10 Hospital Course: Patient did well without any further signs/sx of TIA or deficits, he demanded to be released from hospital the next morning on rounds. No swallowing concerns. No prior TIA or CVA. ABCD2 score = 5, placing him at moderate risk for stroke within the next 90 days. Telemetry without arrhythmia overnight. Recent lipid panel wnl obtained in the clinic within the past month. A1c 6.8%. He did have questionable cardiac demand as troponin initial spike 0.10 without sx. Mild Hypokalemia on admission with normalization after correction. HTN since admission, but with interval improvement. He was kept on neurological monitoring and telemetry, lisinopril, metoprolol, and furosmide in addition to close monitoring of BPs with current goal of slow reduction from admission BPs in the setting of TIA. He refused consideration for assisted or detention care. Med adjustments/changes ASA 325mg daily DC'd gemfibrozole ADDED high dose Atorvastatin Considerations at f/u: Plan for outpatient carotid ultrasound and echocardiogram with bubble study to further assess for etiology of TIA. If no etiology noted, consider extended rhythm monitoring to further assess for paroxysmal atrial fibrillation as etiology. ABCD2 score = 5, placing him at moderate risk for stroke within the next 90 days post DC. Report to ED if any concerns of any nature, i.e. stroke like sx, slurred speech, weakness, confusion. - General Info Functional Status: Denies: Pain Controlled (knee pain on ambulation) - Review of Systems General: Reports: No Symptoms HEENT: Reports: No Symptoms Pulmonary: Reports: No Symptoms Cardiovascular: Reports: No Symptoms Gastrointestinal: Reports: No Symptoms Neurological: Reports: No Symptoms. Denies: Confusion, Dizziness, Headache, Numbness, Paresthesia, Seizure, Syncope, Tremors, Weakness, Change in Speech Psychiatric: Reports: No Symptoms - Patient Data Vitals - Most Recent: Last Vital Signs Temp 97.4 F 01/30/18 06:34 Pulse 72 01/30/18 08:19 Resp 18 01/30/18 06:34 BP 173/86 H 01/30/18 08:19 Pulse Ox 96 01/30/18 06:40 Weight - Most Recent: 278 lb 6.4 oz BRANDT Results - Last 24 hrs: Microbiology 01/28/18 20:50 Miscellaneous Reference Culture - Final Wound - Arm, Right Gram Stain - Final Med Orders - Current: Current Medications Discontinued Medications Acetaminophen (Tylenol Arthritis Pain) 1,300 mg PO TID PRN PRN Reason: Pain (mild 1-3) Acetaminophen (Tylenol Extra Strength) 1,000 mg PO TID PRN PRN Reason: Pain (mild 1-3) Hydrocodone Bitart/Acetaminophen ([place] 325-5 Mg) 1 tab PO Q4H PRN PRN Reason: Pain Last Admin: 01/29/18 09:28 Dose: 1 tab Albuterol (Ventolin Hfa) 0 gm INH Q4H PRN PRN Reason: Dyspnea Albuterol (Ventolin Hfa) 0 gm INH Q4H PRN PRN Reason: Dyspnea Allopurinol (Zyloprim) 300 mg PO DAILY [facility] Last Admin: 01/30/18 08:09 Dose: 300 mg Aspirin (Aspirin) 324 mg PO ONETIME ONE Stop: 01/28/18 20:24 Last Admin: 01/28/18 20:28 Dose: 324 mg Aspirin (Ecotrin) 325 mg PO DAILY [facility] Last Admin: 01/30/18 08:08 Dose: 325 mg Atorvastatin Calcium (Lipitor) 40 mg PO BEDTIME [facility] Last Admin: 01/29/18 21:10 Dose: 40 mg Atropine Sulfate (Atropine 0.1 Mg/Ml) 0 mg IVPUSH ASDIRECTED PRN PRN Reason: Heart Buspirone HCl (Buspar) 10 mg PO BIDMEALS [facility] Last Admin: 01/30/18 08:07 Dose: 10 mg Chlordiazepoxide HCl (Librium) 10 mg PO BIDMEALS [facility] Last Admin: 01/30/18 08:14 Dose: 10 mg Epinephrine HCl (Epinephrine 1:10,000) 1 mg IVPUSH ASDIRECTED PRN PRN Reason: Heart Esomeprazole Magnesium (Nexium) 40 mg PO BID@0700,1700 [facility] Last Admin: 01/29/18 06:44 Dose: Not Given Furosemide (Lasix) 20 mg PO DAILY [facility] Last Admin: 01/30/18 08:08 Dose: 20 mg Potassium Chloride/Sodium Chloride (Normal Saline With 40 Meq Kcl) 1,000 mls @ 125 mls/hr IV ASDIRECTED [facility] Last Admin: 01/29/18 05:20 Dose: 125 mls/hr Lidocaine HCl (Xylocaine 2%) 0 mg IVPUSH ASDIRECTED PRN PRN Reason: Heart Lisinopril (Prinivil) 20 mg PO BIDMEALS [facility] Last Admin: 01/30/18 06:33 Dose: 20 mg Metformin HCl (Glucophage) 1,000 mg PO BIDM [facility] Last Admin: 01/30/18 08:07 Dose: 1,000 mg Metoprolol Tartrate (Lopressor) 25 mg PO BID [facility] Last Admin: 01/30/18 08:08 Dose: 25 mg Nitroglycerin (Nitrostat) 0.4 mg SL ASDIRECTED PRN PRN Reason: Heart Pantoprazole Sodium (Protonix) 40 mg PO BID@0700,1700 [facility] Pantoprazole Sodium (Protonix) 40 mg PO ACBREAKFAST [facility] Last Admin: 01/30/18 08:07 Dose: 40 mg Simethicone (Simethicone) 120 mg PO TIDMEALS PRN PRN Reason: Gas Sodium Chloride (Syrex Flush) 5 ml FLUSH Q8HR PRN PRN Reason: Keep Vein Open Sodium Chloride (Syrex Flush) 5 ml FLUSH Q8HR PRN PRN Reason: Keep Vein Open Last Admin: 01/28/18 21:41 Dose: 5 ml Tamsulosin HCl (Flomax) 0.4 mg PO QAM [facility] Last Admin: 01/30/18 08:08 Dose: 0.4 mg Tramadol HCl (Ultram) 50 mg PO Q8H PRN PRN Reason: Pain (severe 7-10) - Exam Quality Assessment: Denies: Supplemental Oxygen General: Reports: Alert, Oriented, Cooperative, No Acute Distress HEENT: Reports: Pupils Reactive Lungs: Reports: Clear to Auscultation Cardiovascular: Reports: Regular Rate, Regular Rhythm Neurological: Reports: No New Focal Deficit, Normal Tone, Sensation Intact Psy/Mental Status: Reports: Alert, Normal Affect, Normal Mood
== END 2018-01-30 09:45 | disposition home or self-care (01) ==
LOC: KA.ED 19:36 → KA.MS 20:52
PROVIDERS: ADMIT Physician Assistant Medical; ATTEND Family Medicine
DX: G45.9 Transient cerebral ischemic attack, unspecified (principal); E87.6 Hypokalemia; E86.0 Dehydration; I10 Essential (primary) hypertension; R79.89 Other specified abnormal findings of blood chemistry; D64.9 Anemia, unspecified; R31.9 Hematuria, unspecified; E78.00 Pure hypercholesterolemia, unspecified; I25.2 Old myocardial infarction; K59.09 Other constipation; K21.9 Gastro-esophageal reflux disease without esophagitis; N40.0 Benign prostatic hyperplasia without lower urinary tract symptoms; M19.90 Unspecified osteoarthritis, unspecified site; F03.90 Unspecified dementia, unspecified severity, without behavioral disturbance, psychotic disturbance, mood disturbance, and anxiety; F32.9 Major depressive disorder, single episode, unspecified; E11.9 Type 2 diabetes mellitus without complications; E66.9 Obesity, unspecified; E78.5 Hyperlipidemia, unspecified; F41.1 Generalized anxiety disorder; M10.9 Gout, unspecified; Z79.899 Other long term (current) drug therapy; Z79.84 Long term (current) use of oral hypoglycemic drugs; Z79.82 Long term (current) use of aspirin; Z88.8 Allergy status to other drugs, medicaments and biological substances; Z88.5 Allergy status to narcotic agent; Z87.891 Personal history of nicotine dependence; Z68.37 Body mass index [BMI] 37.0-37.9, adult
CPT/HCPCS: 36415; 70450; 71045; 80048; 80053; 81001; 82550; 82553; 83036; 83735; 84484; 85025; 85610; 85730; 87070; 87205; 93005; 96360; 96361; 99284; 99285; A9270-GY; G0378; J3480

== ENCOUNTER 2018-09-20 11:56 | Inpatient (IN) | payer MEDICARE, MEDICAID ==
[2018-09-20] MEDS ORDERED: Metolazone 2.5 MG Tab PO SCH (12:45)
[2018-09-20 13:23] LABS: ANION GAP 16.6 mmol/L (5-15)
[2018-09-20] MEDS: Acetaminophen 650 MG Tab.ER PO SCH ×2 (16:01→21:37)
[2018-09-20] MEDS ORDERED: Nitroglycerin 0.4 MG Tab.SL SL PRN (16:52)
[2018-09-20] MEDS ORDERED: EPINEPHrine 1:10,000 1 MG/10 ML Syringe IVPUSH PRN (16:52)
[2018-09-20] MEDS ORDERED: Lidocaine 2% 100 MG/5 ML Syringe IVPUSH PRN (16:52)
[2018-09-20] MEDS ORDERED: Atropine 0.1 MG/ML 10 ML Syringe IVPUSH PRN (16:52)
[2018-09-20] MEDS ORDERED: Furosemide 40 MG/4 ML VIAL IVPUSH SCH (17:00)
[2018-09-20] MEDS ORDERED: Lisinopril 20 MG Tab PO SCH (18:00)
[2018-09-20] MEDS ORDERED: metFORMIN 500 MG Tab PO SCH (18:00)
[2018-09-20] MEDS: Nystatin Crm 15 GM Tube TOP SCH ×2 (18:44→21:39)
[2018-09-20] MEDS: Warfarin 5 MG Tab PO SCH (18:45)
[2018-09-20] MEDS: chlordiazePOXIDE 10 MG Cap PO SCH (18:45)
[2018-09-20] MEDS: busPIRone 10 MG Tab PO SCH (18:45)
[2018-09-20] MEDS: Metoprolol Tartrate 25 MG Tab PO SCH (18:46)
[2018-09-20] MEDS: atorvaSTATin 40 MG Tab PO SCH (21:37)
[2018-09-21] MEDS: Pantoprazole 40 MG Tab.CR PO SCH (06:47)
[2018-09-21] MEDS: Acetaminophen 650 MG Tab.ER PO SCH ×3 (06:48→21:01)
[2018-09-21] MEDS: Metoprolol Tartrate 25 MG Tab PO SCH (06:48)
[2018-09-21 07:40] LABS: ANION GAP 17.4 mmol/L (5-15)
[2018-09-21] MEDS: Allopurinol 100 MG Tab PO SCH (08:23)
[2018-09-21] MEDS: busPIRone 10 MG Tab PO SCH ×2 (08:23→18:05)
[2018-09-21] MEDS: chlordiazePOXIDE 10 MG Cap PO SCH ×2 (08:23→18:05)
[2018-09-21] MEDS ORDERED: Metolazone 2.5 MG Tab PO SCH (09:00)
[2018-09-21] MEDS ORDERED: Tamsulosin 0.4 MG Cap.ER PO SCH (09:00)
[2018-09-21] MEDS: Terazosin 5 MG Cap PO SCH (09:31)
[2018-09-21] MEDS: Nystatin Crm 15 GM Tube TOP SCH ×2 (09:34→21:02)
[2018-09-21] MEDS ORDERED: traMADol 50 MG Tab PO PRN (11:06)
[2018-09-21] MEDS: Enoxaparin 40 MG/0.4 ML Syringe SUBCUT SCH (16:39)
[2018-09-21] MEDS ORDERED: Magnesium Oxide 500 MG Tab PO SCH (18:00)
[2018-09-21] MEDS: Warfarin 5 MG Tab PO SCH (18:05)
[2018-09-21] MEDS ORDERED: Heparin Sodium 5,000 Units/ML Vial SUBCUT SCH (21:00)
[2018-09-21] MEDS: atorvaSTATin 40 MG Tab PO SCH (21:01)
--- NOTE | 2018-09-21 23:39 | PCM.PN ---
- General Info Date of Service: 09/21/18 Subjective Update: Mr. Luu voices no symptomatic complaints today. States the swelling in his legs is about the same. Does not wear compression stockings at home due to "not wanting to." Continues to deny lightheadedness, dizziness, headache, chest pain , shortness of breath, or other complaints. Tolerating diet well. denies complaints. Nursing states he has refused compression stockings and wraps. Continues with intermittently cantankerous affect toward staff. - Patient Data Vitals - Most Recent: Last Vital Signs Temp 37.1 C 09/21/18 22:37 Pulse 52 L 09/21/18 22:37 Resp 20 09/21/18 22:37 BP 125/62 09/21/18 22:37 Pulse Ox 92 L 09/21/18 22:37 Weight - Most Recent: 136.531 kg I&O - Last 24 Hours: Intake & Output 09/21/18 09/21/18 09/22/18 14:59 22:59 06:59 Intake Total 600 900 Output Total 1150 1150 Balance -550 -250 Lab Results Last 24 Hours: Laboratory Results - last 24 hr 09/21/18 09/21/18 09/21/18 Range/Units 07:10 07:10 07:10 WBC (5.00-10.00) 10^3/uL RBC (4.50-6.00) 10^6/uL Hgb (13.0-17.0) g/dL Hct (40.0-52.0) % MCV (82.0-92.0) fL MCH (27.0-31.0) pg MCHC (32.0-36.0) g/dL RDW (11.5-14.5) % Plt Count (150-400) 10^3/uL MPV (7.4-10.4) fL Immature Gran % (Auto) (0.0-5.0) % Neut % (Auto) (50.0-70.0) % Lymph % (Auto) (20.0-40.0) % Spencer % (Auto) (2.0-8.0) % Eos % (Auto) (1.0-3.0) % Baso % (Auto) (0.0-1.0) % Immature Gran # (Auto) (0.00-0.50) 10^3/uL Neut # (Auto) (2.50-7.00) 10^3/uL Lymph # (Auto) (1.00-4.00) 10^3/uL Spencer # (Auto) (0.10-0.80) 10^3/uL Eos # (Auto) (0.10-0.30) 10^3/uL Baso # (Auto) (0.00-0.10) 10^3/uL PT 11.1 (8.9-11.4) SEC INR 1.1 (0.9-1.1) Sodium 142 (136-145) mmol/L Potassium 4.2 (3.3-5.3) mmol/L Chloride 104 (98-115) mmol/L Carbon Dioxide 24.8 (21.0-32.0) mmol/L Anion Gap 17.4 H (5-15) mmol/L BUN 55 H* (6-25) mg/dL Creatinine 1.55 H (0.51-1.17) mg/dL Est Cr Clr Drug Dosing 42.42 mL/min Estimated GFR (MDRD) 43 mL/min Glucose 122 H (75 - 99) mg/dL POC Glucose (74-106) mg/dl Calcium 8.6 L (8.7-10.3) mg/dL Magnesium 1.5 L (1.8-2.4) mg/dL Troponin I < 0.04 (0.00-0.070) ng/mL B-Natriuretic Peptide 89 (0-100) pg/mL 09/21/18 09/21/18 Range/Units 07:10 07:24 WBC 6.08 (5.00-10.00) 10^3/uL RBC 4.35 L (4.50-6.00) 10^6/uL Hgb 13.0 (13.0-17.0) g/dL Hct 39.8 L (40.0-52.0) % MCV 91.5 D (82.0-92.0) fL MCH 29.9 (27.0-31.0) pg MCHC 32.7 (32.0-36.0) g/dL RDW 15.7 H (11.5-14.5) % Plt Count 113 L (150-400) 10^3/uL MPV 11.4 H (7.4-10.4) fL Immature Gran % (Auto) 0.3 (0.0-5.0) % Neut % (Auto) 64.0 (50.0-70.0) % Lymph % (Auto) 26.8 (20.0-40.0) % Spencer % (Auto) 8.4 H (2.0-8.0) % Eos % (Auto) 0.2 L (1.0-3.0) % Baso % (Auto) 0.3 (0.0-1.0) % Immature Gran # (Auto) 0.02 (0.00-0.50) 10^3/uL Neut # (Auto) 3.89 (2.50-7.00) 10^3/uL Lymph # (Auto) 1.63 (1.00-4.00) 10^3/uL Spencer # (Auto) 0.51 (0.10-0.80) 10^3/uL Eos # (Auto) 0.01 L (0.10-0.30) 10^3/uL Baso # (Auto) 0.02 (0.00-0.10) 10^3/uL PT (8.9-11.4) SEC INR (0.9-1.1) Sodium (136-145) mmol/L Potassium (3.3-5.3) mmol/L Chloride (98-115) mmol/L Carbon Dioxide (21.0-32.0) mmol/L Anion Gap (5-15) mmol/L BUN (6-25) mg/dL Creatinine (0.51-1.17) mg/dL Est Cr Clr Drug Dosing mL/min Estimated GFR (MDRD) mL/min Glucose (75 - 99) mg/dL POC Glucose 129 H (74-106) mg/dl Calcium (8.7-10.3) mg/dL Magnesium (1.8-2.4) mg/dL Troponin I (0.00-0.070) ng/mL B-Natriuretic Peptide (0-100) pg/mL Med Orders - Current: Current Medications Acetaminophen (Tylenol Arthritis Pain) 650 mg PO Q8HR [facility]UNG Last Admin: 09/21/18 21:01 Dose: 650 mg Allopurinol (Zyloprim) 300 mg PO DAILY [facility] Last Admin: 09/21/18 08:23 Dose: 300 mg Atorvastatin Calcium (Lipitor) 40 mg PO BEDTIME [facility] Last Admin: 09/21/18 21:01 Dose: 40 mg Atropine Sulfate (Atropine 0.1 Mg/Ml) 0 mg IVPUSH ASDIRECTED PRN PRN Reason: Heart Buspirone HCl (Buspar) 10 mg PO BIDMEALS [facility] Last Admin: 09/21/18 18:05 Dose: 10 mg Chlordiazepoxide HCl (Librium) 10 mg PO BIDMEALS [facility] Last Admin: 09/21/18 18:05 Dose: 10 mg Enoxaparin Sodium (Lovenox) 40 mg SUBCUT Q24H [facility] Last Admin: 09/21/18 16:39 Dose: 40 mg Epinephrine HCl (Epinephrine 1:10,000) 1 mg IVPUSH ASDIRECTED PRN PRN Reason: Heart Lidocaine HCl (Xylocaine 2%) 0 mg IVPUSH ASDIRECTED PRN PRN Reason: Heart Lisinopril (Prinivil) 20 mg PO DAILY [facility] Magnesium Oxide (Magnesium Oxide) 500 mg PO DAILY@1800 [facility] Last Admin: 09/21/18 18:05 Dose: 500 mg Nitroglycerin (Nitrostat) 0.4 mg SL ASDIRECTED PRN PRN Reason: Heart Nystatin (Nystatin Crm) 1 gm TOP BID [facility] Last Admin: 09/21/18 21:02 Dose: 1 applic Pantoprazole Sodium (Protonix) 40 mg PO ACBREAKFAST [facility] Last Admin: 09/21/18 06:47 Dose: 40 mg Terazosin HCl (Hytrin) 5 mg PO DAILY [facility] Last Admin: 09/21/18 09:31 Dose: 5 mg Tramadol HCl (Ultram) 50 mg PO BID PRN PRN Reason: Pain (moderate 4-6) Warfarin Sodium (Coumadin) 5 mg PO DAILY@1800 [facility] Last Admin: 09/21/18 18:05 Dose: 5 mg Warfarin Sodium (Pharmacy To Dose - Warfarin) 1 dose .XX ASDIRECTED [facility] Discontinued Medications Furosemide (Lasix) 40 mg IVPUSH BIDDIURETIC [facility] Last Admin: 09/20/18 18:04 Dose: Not Given Lisinopril (Prinivil) 20 mg PO BIDMEALS [facility] Metformin HCl (Glucophage) 1,000 mg PO BIDMEALS [facility] Metolazone (Zaroxolyn) 2.5 mg PO DAILY [facility] Metolazone (Zaroxolyn) 2.5 mg PO DAILY [facility] Metoprolol Tartrate (Lopressor) 25 mg PO BID@0700,1800 [facility] Last Admin: 09/21/18 06:48 Dose: Not Given Tamsulosin HCl (Flomax) 0.4 mg PO QAM [facility] - Exam Physical Findings Comments:: GENERAL: Elderly white male in no acute distress. HEENT: Normocephalic, atraumatic. Conjunctiva clear. Nares patent without discharge. Mucous membranes moiste. NECK: Supple, no masses. CV: Bradycardia, irregular rhythm, no murmurs, rubs, or gallops. 2+ radial pulses. PULMONARY: Normal effort, clear to auscultation bilaterally, no wheezes, rales, or rhonchi. ABDOMEN: Positive bowel sounds, soft, nontender, nondistended. EXTREMITIES: 2+ edema of bilateral lower extremities to mid seo, no cyanosis or clubbing. MUSCULOSKELETAL: Moves all extremities well. NEUROLOGICAL: No obvious deficits. PSYCHIATRIC: Alert, interactive, cantankerous affect. - Problem List Review Problem List Initiated/Reviewed/Updated: Yes - My Orders Last 24 Hours: My Active Orders 09/21/18 09:15 EKG 12 Lead [EK] Routine 09/21/18 11:06 traMADol [Ultram] 50 mg PO BID PRN 09/21/18 12:30 Pharmacy to Dose - Warfarin 1 dose .XX ASDIRECTED 09/21/18 15:30 Enoxaparin [Lovenox] 40 mg SUBCUT Q24H 09/21/18 18:00 Magnesium Oxide 500 mg PO DAILY@1800 09/22/18 05:11 CBC WITH AUTO DIFF [HEME] AM COMPREHENSIVE METABOLIC PN,CMP [CHEM] AM MAGNESIUM [CHEM] AM TSH ULTRASENSITIVE [CHEM] AM 09/22/18 06:00 INR,PT,PROTHROMBIN TIME [COAG] DAILY 09/22/18 09:00 Lisinopril [Prinivil] 20 mg PO DAILY 09/23/18 06:00 INR,PT,PROTHROMBIN TIME [COAG] DAILY - Plan Plan:: HPI summary: 77yoM with history of HFpEF, chronic lower extremity edema, and significant self-care deficit, who presented to the [facility] on 09/[facility] for follow-up of fluid status when he was noted to have ongoing significant edema and increase in creatinine to >2. He had been given an increased dose of furosemide and metolazone in the days prior. He had refused admission in the days prior, but that day agreed. Hospitalization problems: # Acute kidney injury: Baseline Cr 0.8. Admission Cr 2.12. # HFpEF: 02/2018 echo with EF 50% and grade 1 diastolic dysfunction. # HTN # Lower extremity edema # Atrial flutter # Bradycardia # Hypomagnesemia # Intertrigo # Cognitive impairment/dementia: Prior MOCA = 18. # Deconditioning # Self care deficit Cr improving. Edema improving, though he has been refusing compression stockings or wraps. No evidence of heart failure, with normal BNP and no signs cardiopulmonary overload. Called cardiology, who reviewed EKGs as atrial flutter with bradycardia. He continues to be asymptomatic and cardiology recommends anticoagulation and consideration of consultation as outpatient. Mg noted to be low. Warfarin initiated on admission due to elevated [id number]. Again encouraged consideration of physical therapy and correction facility at discharge, to which he and both adamantly decline. - Continue close VS monitoring, including telemetry - Attempt placement of compression stockings or BASIM wraps to lower extremities and encourage elevation while seated or in bed - Replace magnesium - Continue warfarin (chosen due to cost of DOACs) without bridging - Continue holding metoprolol, lisinopril, amlodipine, furosemide and metolazone - Continue nystatin - Recheck CBC, CMP, Mg tomorrow along with TSH Chronic, stable conditions: # Hx TIA/HLD: Atorvastatin 40mg. ASA discontinued given initiation of anticoagulation. # GERD/gastritis: PPI. # DMT2: Holding metformin due to JOEY. Last A1c 6.9%. # BPH: Terazosin 5mg daily. Holding tamsulosin due to JOEY. # OA, knees: Tylenol 650mg TID prn, tramadol 50mg BID prn. # Gout: Allopurinol 300mg. # Anxiety: Buspirone 10mg BID, chlordiazepoxide 10mg BID. Suboptimal regimen, but has been on for decades. Hospitalization details: # FEN: No IVF. Electrolytes normal except as above. Diabetic diet. # PPX: Enoxaparin for DVT ppx while awaiting therapeutic INR. # Code status: DNR/DNI, confirmed with patient and . # Emergency contact: , Veronica, updated at bedside on rounds. # Disposition: Continue on inpatient status. Ideally would agree to placement at SNF due to cognitive impairment/dementia and self care deficit in addition to chronic conditions, but he and continue to decline. Likely eventual discharge to home pending clinical status improvement.
[2018-09-22] MEDS: Acetaminophen 650 MG Tab.ER PO SCH ×4 (05:20→21:51)
[2018-09-22] MEDS: Sodium Chloride 0.9% 10 ML Syringe FLUSH PRN ×2 (06:00→21:39)
[2018-09-22] MEDS: Pantoprazole 40 MG Tab.CR PO SCH (06:48)
[2018-09-22] MEDS: busPIRone 10 MG Tab PO SCH ×2 (07:58→18:02)
[2018-09-22] MEDS: chlordiazePOXIDE 10 MG Cap PO SCH ×2 (07:58→18:02)
[2018-09-22 08:23] LABS: ANION GAP 17.3 mmol/L (5-15); CHLORIDE,CL 105 mmol/L (98-115); SODIUM,NA 144 mmol/L (136-145)
[2018-09-22] MEDS ORDERED: Lisinopril 20 MG Tab PO SCH (09:00)
[2018-09-22] MEDS: Allopurinol 100 MG Tab PO SCH (10:59)
[2018-09-22] MEDS: Terazosin 5 MG Cap PO SCH (10:59)
--- NOTE | 2018-09-22 12:19 | PCM.PN ---
- General Info Date of Service: 09/22/18 Subjective Update: Mr. Luu again denies any symptomatic complaints today. States the swelling in his legs is about the same, but feels it is better. Agreed to wear BASIM wraps yesterday. Showered again today. Continues to deny lightheadedness, dizziness, headache, chest pain, shortness of breath, or other complaints. Tolerating diet well. Ambulating without difficulty. and he continue to decline consideration of home health or SNF placement at discharge. Continues with intermittently cantankerous affect toward staff, but otherwise no nursing complaints. - Patient Data Vitals - Most Recent: Last Vital Signs Temp 36.8 C 09/22/18 06:17 Pulse 65 09/22/18 06:17 Resp 20 09/22/18 06:17 BP 141/91 H 09/22/18 10:59 Pulse Ox 97 09/22/18 06:17 Weight - Most Recent: 136.531 kg I&O - Last 24 Hours: Intake & Output 09/21/18 09/22/18 09/22/18 22:59 06:59 14:59 Intake Total 900 300 Output Total 1150 900 Balance -250 -600 Lab Results Last 24 Hours: Laboratory Results - last 24 hr 09/22/18 09/22/18 09/22/18 Range/Units 06:12 07:27 07:27 WBC (5.00-10.00) 10^3/uL RBC (4.50-6.00) 10^6/uL Hgb (13.0-17.0) g/dL Hct (40.0-52.0) % MCV (82.0-92.0) fL MCH (27.0-31.0) pg MCHC (32.0-36.0) g/dL RDW (11.5-14.5) % Plt Count (150-400) 10^3/uL MPV (7.4-10.4) fL Immature Gran % (Auto) (0.0-5.0) % Neut % (Auto) (50.0-70.0) % Lymph % (Auto) (20.0-40.0) % Wilcox % (Auto) (2.0-8.0) % Eos % (Auto) (1.0-3.0) % Baso % (Auto) (0.0-1.0) % Immature Gran # (Auto) (0.00-0.50) 10^3/uL Neut # (Auto) (2.50-7.00) 10^3/uL Lymph # (Auto) (1.00-4.00) 10^3/uL Wilcox # (Auto) (0.10-0.80) 10^3/uL Eos # (Auto) (0.10-0.30) 10^3/uL Baso # (Auto) (0.00-0.10) 10^3/uL PT 11.3 (8.9-11.4) SEC INR 1.1 (0.9-1.1) Sodium 144 (136-145) mmol/L Potassium 3.9 (3.3-5.3) mmol/L Chloride 105 (98-115) mmol/L Carbon Dioxide 25.6 (21.0-32.0) mmol/L Anion Gap 17.3 H (5-15) mmol/L BUN 36 H (6-25) mg/dL Creatinine 1.09 (0.51-1.17) mg/dL Est Cr Clr Drug Dosing 60.32 mL/min Estimated GFR (MDRD) > 60 mL/min Glucose 140 H (75 - 99) mg/dL POC Glucose 153 H (74-106) mg/dl Calcium 8.7 (8.7-10.3) mg/dL Magnesium 1.8 (1.8-2.4) mg/dL Total Bilirubin 1.4 H (0.2-1.0) mg/dL AST 55 H (15-37) U/L ALT 59 (12-78) U/L Alkaline Phosphatase 93 (46-116) IU/L Total Protein 7.2 (6.4-8.2) g/dL Albumin 3.52 (3.00-4.80) g/dL TSH, Ultra Sensitive 3.620 (0.340-4.820) uIU/mL 09/22/18 Range/Units 07:27 WBC 5.07 (5.00-10.00) 10^3/uL RBC 4.29 L (4.50-6.00) 10^6/uL Hgb 12.9 L (13.0-17.0) g/dL Hct 39.2 L (40.0-52.0) % MCV 91.4 (82.0-92.0) fL MCH 30.1 (27.0-31.0) pg MCHC 32.9 (32.0-36.0) g/dL RDW 15.7 H (11.5-14.5) % Plt Count 114 L (150-400) 10^3/uL MPV 10.5 H (7.4-10.4) fL Immature Gran % (Auto) 0.4 (0.0-5.0) % Neut % (Auto) 63.9 (50.0-70.0) % Lymph % (Auto) 26.2 (20.0-40.0) % Wilcox % (Auto) 9.3 H (2.0-8.0) % Eos % (Auto) 0.0 L (1.0-3.0) % Baso % (Auto) 0.2 (0.0-1.0) % Immature Gran # (Auto) 0.02 (0.00-0.50) 10^3/uL Neut # (Auto) 3.24 (2.50-7.00) 10^3/uL Lymph # (Auto) 1.33 (1.00-4.00) 10^3/uL Wilcox # (Auto) 0.47 (0.10-0.80) 10^3/uL Eos # (Auto) 0.00 L (0.10-0.30) 10^3/uL Baso # (Auto) 0.01 (0.00-0.10) 10^3/uL PT (8.9-11.4) SEC INR (0.9-1.1) Sodium (136-145) mmol/L Potassium (3.3-5.3) mmol/L Chloride (98-115) mmol/L Carbon Dioxide (21.0-32.0) mmol/L Anion Gap (5-15) mmol/L BUN (6-25) mg/dL Creatinine (0.51-1.17) mg/dL Est Cr Clr Drug Dosing mL/min Estimated GFR (MDRD) mL/min Glucose (75 - 99) mg/dL POC Glucose (74-106) mg/dl Calcium (8.7-10.3) mg/dL Magnesium (1.8-2.4) mg/dL Total Bilirubin (0.2-1.0) mg/dL AST (15-37) U/L ALT (12-78) U/L Alkaline Phosphatase (46-116) IU/L Total Protein (6.4-8.2) g/dL Albumin (3.00-4.80) g/dL TSH, Ultra Sensitive (0.340-4.820) uIU/mL Med Orders - Current: Current Medications Acetaminophen (Tylenol Arthritis Pain) 650 mg PO Q8HR [facility] Last Admin: 09/22/18 05:20 Dose: 650 mg Allopurinol (Zyloprim) 300 mg PO DAILY [facility] Last Admin: 09/22/18 10:59 Dose: 300 mg Atorvastatin Calcium (Lipitor) 40 mg PO BEDTIME [facility] Last Admin: 09/21/18 21:01 Dose: 40 mg Atropine Sulfate (Atropine 0.1 Mg/Ml) 0 mg IVPUSH ASDIRECTED PRN PRN Reason: Heart Buspirone HCl (Buspar) 10 mg PO BIDMEALS [facility] Last Admin: 09/22/18 07:58 Dose: 10 mg Chlordiazepoxide HCl (Librium) 10 mg PO BIDMEALS [facility] Last Admin: 09/22/18 07:58 Dose: 10 mg Enoxaparin Sodium (Lovenox) 40 mg SUBCUT Q24H [facility] Last Admin: 09/21/18 16:39 Dose: 40 mg Epinephrine HCl (Epinephrine 1:10,000) 1 mg IVPUSH ASDIRECTED PRN PRN Reason: Heart Lidocaine HCl (Xylocaine 2%) 0 mg IVPUSH ASDIRECTED PRN PRN Reason: Heart Metformin HCl (Glucophage Xr) 1,000 mg PO DAILY [facility] Nitroglycerin (Nitrostat) 0.4 mg SL ASDIRECTED PRN PRN Reason: Heart Nystatin (Nystatin Crm) 1 gm TOP BID [facility] Last Admin: 09/21/18 21:02 Dose: 1 applic Pantoprazole Sodium (Protonix) 40 mg PO ACBREAKFAST [facility] Last Admin: 09/22/18 06:48 Dose: 40 mg Sodium Chloride (Saline Flush) 10 ml FLUSH Q8HR PRN PRN Reason: keep vein open Last Admin: 09/22/18 06:00 Dose: 10 ml Tamsulosin HCl (Flomax) 0.4 mg PO PCBREAKFAST [facility] Terazosin HCl (Hytrin) 5 mg PO DAILY [facility] Last Admin: 09/22/18 10:59 Dose: 5 mg Tramadol HCl (Ultram) 50 mg PO BID PRN PRN Reason: Pain (moderate 4-6) Warfarin Sodium (Coumadin) 5 mg PO DAILY@1800 [facility] Last Admin: 09/21/18 18:05 Dose: 5 mg Warfarin Sodium (Pharmacy To Dose - Warfarin) 1 dose .XX ASDIRECTED [facility] Discontinued Medications Furosemide (Lasix) 40 mg IVPUSH BIDDIURETIC [facility] Last Admin: 09/20/18 18:04 Dose: Not Given Lisinopril (Prinivil) 20 mg PO BIDMEALS [facility] Lisinopril (Prinivil) 20 mg PO DAILY [facility] Magnesium Oxide (Magnesium Oxide) 500 mg PO DAILY@1800 [facility] Last Admin: 09/21/18 18:05 Dose: 500 mg Metformin HCl (Glucophage) 1,000 mg PO BIDMEALS [facility] Metolazone (Zaroxolyn) 2.5 mg PO DAILY [facility] Metolazone (Zaroxolyn) 2.5 mg PO DAILY [facility] Metoprolol Tartrate (Lopressor) 25 mg PO BID@0700,1800 [facility] Last Admin: 09/21/18 06:48 Dose: Not Given Tamsulosin HCl (Flomax) 0.4 mg PO QAM [facility] - Exam Physical Findings Comments:: GENERAL: Elderly white male in no acute distress sitting in bedside chair. HEENT: Normocephalic, atraumatic. Conjunctiva clear. Nares patent without discharge. Mucous membranes moist. NECK: Supple, no masses, no JVD. CV: Bradycardia, irregular rhythm, no murmurs, rubs, or gallops. 2+ radial pulses. PULMONARY: Normal effort, clear to auscultation bilaterally, no wheezes, rales, or rhonchi. ABDOMEN: Positive bowel sounds, soft, nontender, nondistended. EXTREMITIES: 2+ edema of bilateral lower extremities to mid seo with interval improvement since prior exam, no cyanosis or clubbing. MUSCULOSKELETAL: Moves all extremities well. NEUROLOGICAL: No obvious deficits. PSYCHIATRIC: Alert, interactive, cantankerous affect, notably poor memory and intermittently confused. - Problem List Review Problem List Initiated/Reviewed/Updated: Yes - My Orders Last 24 Hours: My Active Orders 09/21/18 12:30 Pharmacy to Dose - Warfarin 1 dose .XX ASDIRECTED 09/21/18 15:30 Enoxaparin [Lovenox] 40 mg SUBCUT Q24H 09/22/18 06:47 Sodium Chloride 0.9% [Saline Flush] 10 ml FLUSH Q8HR PRN 09/22/18 06:48 Saline Lock Insert [OM.PC] Routine 09/23/18 05:11 BASIC METABOLIC PANEL,BMP [CHEM] AM MG [MAGNESIUM] [CHEM] AM 09/23/18 06:00 INR,PT,PROTHROMBIN TIME [COAG] DAILY 09/23/18 09:00 Tamsulosin [Flomax] 0.4 mg PO PCBREAKFAST metFORMIN [Glucophage XR] 1,000 mg PO DAILY - Plan Plan:: HPI summary: 77yoM with history of HFpEF, chronic lower extremity edema, and significant self-care deficit, who presented to the [facility] on 09/20 for follow-up of fluid status when he was noted to have ongoing significant edema and increase in creatinine to >2. He had been given an increased dose of furosemide and metolazone in the days prior. He had refused admission in the days prior, but that day agreed. Hospitalization problems: # Acute kidney injury: Baseline Cr 0.8. Admission Cr 2.12. # HFpEF: 02/2018 echo with EF 50% and grade 1 diastolic dysfunction. # HTN # Lower extremity edema # Atrial flutter # Bradycardia # Hypomagnesemia # Intertrigo # Cognitive impairment/dementia: Prior MOCA = 18. # Deconditioning # Self care deficit Cr with ongoing improvement off offending medications and even with lack of diuretics, edema improving with use of BASIM wraps. No evidence of cardiopulmonary overload. Mg improved. Warfarin initiated on admission due to elevated [id number]; INR not yet therapeutic. Nursing reports improving intertrigo. Again encouraged consideration of physical therapy and jail facility at discharge, to which he and both adamantly decline. - Continue close VS monitoring, including telemetry - Continue compression stockings or BASIM wraps to lower extremities and encourage elevation while seated or in bed - Continue warfarin (chosen due to cost of DOACs) without bridging - Continue holding metoprolol, lisinopril, amlodipine, furosemide and metolazone - Continue nystatin - Recheck CMP and Mg tomorrow Chronic, stable conditions: # Hx TIA/HLD: Atorvastatin 40mg. ASA discontinued given initiation of anticoagulation. # GERD/gastritis: PPI. # DMT2: Resume metformin. Last A1c 6.9%. # BPH: Terazosin 5mg daily. Resume tamsulosin 0.4mg daily. # OA, knees: Tylenol 650mg TID prn, tramadol 50mg BID prn. # Gout: Allopurinol 300mg. # Anxiety: Buspirone 10mg BID, chlordiazepoxide 10mg BID. Suboptimal regimen, but has been on for decades. Hospitalization details: # FEN: No IVF. Electrolytes normal except as above. Diabetic diet. # PPX: Enoxaparin for DVT ppx while awaiting therapeutic INR. # Code status: DNR/DNI, confirmed with patient and . # Emergency contact: , Veronica, updated at bedside on rounds. # Disposition: Continue on inpatient status. Ideally would agree to placement at SNF due to cognitive impairment/dementia and self care deficit in addition to chronic conditions, but he and continue to decline. Plan to discharge home tomorrow pending ongoing clinical status and laboratory improvement. Will need close medication management at discharge.
[2018-09-22] MEDS: Enoxaparin 40 MG/0.4 ML Syringe SUBCUT SCH (15:57)
[2018-09-22] MEDS: Warfarin 5 MG Tab PO SCH (18:02)
[2018-09-22] MEDS: Nystatin Crm 15 GM Tube TOP SCH ×2 (21:38→22:16)
[2018-09-22] MEDS: atorvaSTATin 40 MG Tab PO SCH (21:38)
[2018-09-23] MEDS: Acetaminophen 650 MG Tab.ER PO SCH (06:11)
[2018-09-23] MEDS: Pantoprazole 40 MG Tab.CR PO SCH (07:17)
[2018-09-23 07:59] LABS: ANION GAP 15.2 mmol/L (5-15); CHLORIDE,CL 106 mmol/L (98-115); SODIUM,NA 143 mmol/L (136-145)
[2018-09-23] MEDS ORDERED: metFORMIN 500 MG Tab.ER PO SCH ×2 (08:00→09:00)
[2018-09-23] MEDS: busPIRone 10 MG Tab PO SCH (08:43)
[2018-09-23] MEDS: Allopurinol 100 MG Tab PO SCH (08:44)
[2018-09-23] MEDS: Nystatin Crm 15 GM Tube TOP SCH (08:44)
[2018-09-23] MEDS: Terazosin 5 MG Cap PO SCH (08:45)
[2018-09-23 08:46] VITALS: BP 124/64
[2018-09-23] MEDS ORDERED: Tamsulosin 0.4 MG Cap.ER PO SCH (09:00)
[2018-09-23] MEDS: chlordiazePOXIDE 10 MG Cap PO SCH (10:36)
--- NOTE | 2018-09-23 12:29 | PCM.DCSUM1 ---
Discharge Summary - Discharge Data Discharge Date: 09/24/18 Discharge Disposition: Home, Self-Care 01 Condition: Fair - Patient Instructions Diet: Heart Healthy Diet, Low Sodium Activity: As Tolerated Showering/Bathing, Other: Shower twice weekly - Discharge Plan *PRESCRIPTION DRUG MONITORING PROGRAM REVIEWED*: Yes *COPY OF PRESCRIPTION DRUG MONITORING REPORT IN PATIENT ADARSH: Yes Prescriptions/Med Rec: Nystatin [Nystatin Crm] 1 gm TOP BID #1 tube Warfarin [Coumadin] 5 mg PO DAILY@1800 #30 tablet Home Medications: Home Meds busPIRone [Buspar] 10 mg PO BIDMEALS 08/16/17 [History] chlordiazePOXIDE [Librium] 10 mg PO BIDMEALS 08/16/17 [History] Acetaminophen [Tylenol Arthritis] 650 mg PO Q8H 01/28/18 [History] Allopurinol [Zyloprim] 300 mg PO DAILY 01/29/18 [History] Esomeprazole [NexIUM] 40 mg PO ACBREAKFAST 01/29/18 [History] metFORMIN HCl [Metformin HCl] 1,000 mg PO BIDMEALS 01/29/18 [History] Capsaicin [Arthritis Pain Relief] 1 applic TP TID PRN 09/20/18 [History] Tamsulosin [Flomax] 0.4 mg PO QAM 09/20/18 [History] Terazosin [Hytrin] 5 mg PO DAILY 09/20/18 [History] atorvaSTATin [Lipitor] 40 mg PO BEDTIME 09/20/18 [History] Lisinopril 20 mg PO DAILY #30 tab 09/23/18 [Rx] Nystatin [Nystatin Crm] 1 gm TOP BID #1 tube 09/23/18 [Rx] Warfarin [Coumadin] 5 mg PO DAILY@1800 #30 tablet 09/23/18 [Rx] Referrals: Naman Al, COSTING MANAGER [Nurse Practitioner] - 10/01/18 - Discharge Summary/Plan Comment DC Time >30 min.: Yes - Patient Data Vitals - Most Recent: Last Vital Signs Temp 36.5 C 09/23/18 06:20 Pulse 45 L 09/23/18 06:20 Resp 20 09/23/18 06:20 BP 124/64 09/23/18 08:45 Pulse Ox 96 09/23/18 06:20 Weight - Most Recent: 133.356 kg I&O - Last 24 hours: Intake & Output 09/22/18 09/23/18 09/23/18 22:59 06:59 14:59 Intake Total 350 100 Output Total 400 750 Balance -50 -650 Lab Results - Last 24 hrs: Laboratory Results - last 24 hr 09/23/18 09/23/18 09/23/18 Range/Units 06:47 07:18 07:18 PT 11.7 H (8.9-11.4) SEC INR 1.2 H (0.9-1.1) Sodium 143 (136-145) mmol/L Potassium 3.9 (3.3-5.3) mmol/L Chloride 106 (98-115) mmol/L Carbon Dioxide 25.7 (21.0-32.0) mmol/L Anion Gap 15.2 H (5-15) mmol/L BUN 26 H (6-25) mg/dL Creatinine 1.07 (0.51-1.17) mg/dL Est Cr Clr Drug Dosing 61.44 mL/min Estimated GFR (MDRD) > 60 mL/min Glucose 148 H (75 - 99) mg/dL POC Glucose 131 H (74-106) mg/dl Calcium 8.7 (8.7-10.3) mg/dL Magnesium 1.9 (1.8-2.4) mg/dL Med Orders - Current: Current Medications Acetaminophen (Tylenol Arthritis Pain) 650 mg PO Q8HR [facility] Last Admin: 09/23/18 06:11 Dose: 650 mg Allopurinol (Zyloprim) 300 mg PO DAILY [facility] Last Admin: 09/23/18 08:44 Dose: 300 mg Atorvastatin Calcium (Lipitor) 40 mg PO BEDTIME [facility] Last Admin: 09/22/18 21:38 Dose: 40 mg Atropine Sulfate (Atropine 0.1 Mg/Ml) 0 mg IVPUSH ASDIRECTED PRN PRN Reason: Heart Buspirone HCl (Buspar) 10 mg PO BIDMEALS [facility] Last Admin: 09/23/18 08:43 Dose: 10 mg Chlordiazepoxide HCl (Librium) 10 mg PO BIDMEALS [facility] Last Admin: 09/23/18 10:36 Dose: 10 mg Enoxaparin Sodium (Lovenox) 40 mg SUBCUT Q24H [facility] Last Admin: 09/22/18 15:57 Dose: 40 mg Epinephrine HCl (Epinephrine 1:10,000) 1 mg IVPUSH ASDIRECTED PRN PRN Reason: Heart Lidocaine HCl (Xylocaine 2%) 0 mg IVPUSH ASDIRECTED PRN PRN Reason: Heart Metformin HCl (Glucophage Xr) 1,000 mg PO BIDMEALS [facility] Last Admin: 09/23/18 08:43 Dose: 1,000 mg Nitroglycerin (Nitrostat) 0.4 mg SL ASDIRECTED PRN PRN Reason: Heart Nystatin (Nystatin Crm) 1 gm TOP BID [facility] Last Admin: 09/23/18 08:44 Dose: 1 applic Pantoprazole Sodium (Protonix) 40 mg PO ACBREAKFAST [facility] Last Admin: 09/23/18 07:17 Dose: 40 mg Sodium Chloride (Saline Flush) 10 ml FLUSH Q8HR PRN PRN Reason: keep vein open Last Admin: 09/22/18 21:39 Dose: 10 ml Tamsulosin HCl (Flomax) 0.4 mg PO PCBREAKFAST [facility] Last Admin: 09/23/18 08:43 Dose: 0.4 mg Terazosin HCl (Hytrin) 5 mg PO DAILY [facility] Last Admin: 09/23/18 08:45 Dose: 5 mg Tramadol HCl (Ultram) 50 mg PO BID PRN PRN Reason: Pain (moderate 4-6) Warfarin Sodium (Coumadin) 5 mg PO DAILY@1800 [facility] Last Admin: 09/22/18 18:02 Dose: 5 mg Warfarin Sodium (Pharmacy To Dose - Warfarin) 1 dose .XX ASDIRECTED [facility] Discontinued Medications Furosemide (Lasix) 40 mg IVPUSH BIDDIURETIC [facility] Last Admin: 09/20/18 18:04 Dose: Not Given Lisinopril (Prinivil) 20 mg PO BIDMEALS [facility] Lisinopril (Prinivil) 20 mg PO DAILY [facility] Magnesium Oxide (Magnesium Oxide) 500 mg PO DAILY@1800 [facility] Last Admin: 09/21/18 18:05 Dose: 500 mg Metformin HCl (Glucophage) 1,000 mg PO BIDMEALS [facility] Metformin HCl (Glucophage Xr) 1,000 mg PO DAILY [facility] Metolazone (Zaroxolyn) 2.5 mg PO DAILY [facility] Metolazone (Zaroxolyn) 2.5 mg PO DAILY [facility] Metoprolol Tartrate (Lopressor) 25 mg PO BID@0700,1800 [facility] Last Admin: 09/21/18 06:48 Dose: Not Given Tamsulosin HCl (Flomax) 0.4 mg PO QAM [facility]
[2018-09-23] MEDS: Warfarin 5 MG Tab PO SCH (13:30)
== END 2018-09-23 13:35 | disposition home or self-care (01) | DRG 682 ==
LOC: KA.MS 11:56
PROVIDERS: ADMIT Nurse Practitioner Family; ATTEND Family Medicine
DX: N17.9 Acute kidney failure, unspecified (principal); I50.33 Acute on chronic diastolic (congestive) heart failure; Z68.41 Body mass index [BMI] 40.0-44.9, adult; I48.92 Unspecified atrial flutter; I11.0 Hypertensive heart disease with heart failure; E87.70 Fluid overload, unspecified; E11.9 Type 2 diabetes mellitus without complications; N40.1 Benign prostatic hyperplasia with lower urinary tract symptoms; R39.14 Feeling of incomplete bladder emptying; E66.01 Morbid (severe) obesity due to excess calories; M62.81 Muscle weakness (generalized); K21.9 Gastro-esophageal reflux disease without esophagitis; M17.10 Unilateral primary osteoarthritis, unspecified knee; F41.9 Anxiety disorder, unspecified; R60.9 Edema, unspecified; R00.1 Bradycardia, unspecified; E83.42 Hypomagnesemia; L30.4 Erythema intertrigo; F03.90 Unspecified dementia, unspecified severity, without behavioral disturbance, psychotic disturbance, mood disturbance, and anxiety; R53.81 Other malaise; Z91.81 History of falling; Z88.8 Allergy status to other drugs, medicaments and biological substances; Z79.899 Other long term (current) drug therapy; Z74.09 Other reduced mobility
CPT/HCPCS: 36415; 80048; 80053; 82962; 83735; 83880; 84443; 84484; 85025; 85610; 93005; A9270-GY; J1650

== ENCOUNTER 2018-10-21 00:08 | Inpatient (IN) | payer MEDICAID, MEDICARE ==
[2018-10-21] MEDS ORDERED: Albuterol/Ipratropium 3.0-0.5 MG/3 ML Neb Soln ONE (00:17)
[2018-10-21] MEDS ORDERED: Albuterol/Ipratropium 3.0-0.5 MG/3 ML Neb Soln NEB ONE (00:20)
--- NOTE | 2018-10-21 00:50 | EDM.PDOC ---
ED HPI GENERAL MEDICAL PROBLEM - General Chief Complaint: Respiratory Problem Stated Complaint: difficulty breathing Time Seen by Provider: 10/21/18 00:28 Source of Information: Reports: Patient History Limitations: Reports: No Limitations - History of Present Illness INITIAL COMMENTS - FREE TEXT/NARRATIVE: Patient brought via ambulance for dyspnea. He noticed wheezing and shortness of breath off and on today but worse this evening. He doesn't use any inhalers , nebulizers or oxygen at home he says. He denies chest pain or abdominal pain. 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 TRAINER: Reports: Oxygen denies Pain Score (Numeric/FACES): 0 - Related Data Allergies Allergy/AdvReac Type Severity Reaction Status Date / Time omeprazole magnesium Allergy Intermediate Cannot Verified 10/21/18 00:32 [From Prilosec] Remember cimetidine [From Tagamet] Allergy Rash Verified 10/21/18 00:32 cimetidine HCl [From Tagamet] Allergy Rash Verified 10/21/18 00:32 codeine Allergy Hallucinati Verified 10/21/18 00:32 ons omeprazole [From Prilosec] Allergy Cannot Verified 10/21/18 00:32 Remember Home Meds: Home Meds busPIRone [Buspar] 10 mg PO BIDMEALS 08/16/17 [History] chlordiazePOXIDE [Librium] 10 mg PO BIDMEALS 08/16/17 [History] Acetaminophen [Tylenol Arthritis] 650 mg PO Q8H 01/28/18 [History] Allopurinol [Zyloprim] 300 mg PO DAILY 01/29/18 [History] Esomeprazole [NexIUM] 40 mg PO ACBREAKFAST 01/29/18 [History] metFORMIN HCl [Metformin HCl] 1,000 mg PO BIDMEALS 01/29/18 [History] Capsaicin [Arthritis Pain Relief] 1 applic TP TID PRN 09/20/18 [History] Tamsulosin [Flomax] 0.4 mg PO QAM 09/20/18 [History] Terazosin [Hytrin] 5 mg PO DAILY 09/20/18 [History] atorvaSTATin [Lipitor] 40 mg PO BEDTIME 09/20/18 [History] Lisinopril 20 mg PO DAILY #30 tab 09/23/18 [Rx] Warfarin [Coumadin] 5 mg PO DAILY@1800 #30 tablet 09/23/18 [Rx] Nystatin [Nystatin Crm] 1 gm TOP BID PRN 10/21/18 [History] Past Medical History HEENT History: Reports: Cataract, Hard of Hearing, Impaired Vision Cardiovascular History: Reports: Afib, Heart Failure, High Cholesterol, Hypertension, [place] Respiratory History: Reports: Pneumonia, Recurrent Gastrointestinal History: Reports: Chronic Constipation, GERD, Hemorrhoids Genitourinary History: Reports: BPH Musculoskeletal History: Reports: Arthritis, Back Pain, Chronic Other Musculoskeletal History: chronic knee pain Neurological History: Reports: TIA Other Neuro History: this admit Psychiatric History: Reports: Anxiety, Dementia, Depression, Mood Swings Endocrine/Metabolic History: Reports: Diabetes, Type II, Obesity/BMI 30+ Hematologic History: Reports: None Immunologic History: Reports: None Oncologic (Cancer) History: Reports: None Dermatologic History: Reports: Other (See Below) Other Dermatologic History: scattered scabs, picks/scratches at skin - Infectious Disease History Infectious Disease History: Reports: Measles - Past Surgical History HEENT Surgical History: Reports: Cataract Surgery, Oral Surgery Respiratory Surgical History: Reports: None GI Surgical History: Reports: Cholecystectomy, Colonoscopy, EGD, Hernia, Abdominal Oncologic Surgical History: Reports: None Dermatological Surgical History: Reports: None Social & Family History - Family History Family Medical History: Noncontributory HEENT: Reports: None Cardiac: Reports: Hypertension, [place] Respiratory: Reports: None GI: Reports: None : Reports: None OBGYN: Reports: None Musculoskeletal: Reports: None Neurological: Reports: None Psychiatric: Reports: None Endocrine/Metabolic: Reports: None Hematologic: Reports: None Immunologic: Reports: None Dermatologic: Reports: None Oncologic: Reports: Prostate - Caffeine Use Caffeine Use: Reports: Coffee - Living Situation & Occupation Living situation: Reports: Occupation: Retired ED ROS GENERAL - Review of Systems Review Of Systems: See Below Constitutional: Denies: Malaise, Weakness HEENT: Denies: Throat Pain Respiratory: Reports: Shortness of Breath, Wheezing, Cough (2 days) Cardiovascular: Denies: Chest Pain, Lightheadedness, Syncope GI/Abdominal: Denies: Abdominal Pain, Diarrhea, Nausea, Vomiting : Reports: No Symptoms Musculoskeletal: Reports: No Symptoms Skin: Denies: Cyanosis, Jaundice, Mottled, Pallor, Diaphoresis Neurological: Denies: Confusion, Dizziness, Headache, Seizure, Syncope, Change in Speech Psychiatric: Denies: Agitation, Anxiety, Confusion ED EXAM, GENERAL - Physical Exam Exam: See Below Exam Limited By: No Limitations General Appearance: Alert, WD/WN, No Apparent Distress Eye Exam: Bilateral Eye: EOMI, Normal Inspection, PERRL Ears: Normal External Exam, Hearing Grossly Normal Nose: Normal Inspection, No Blood Throat/Mouth: Normal Inspection, Normal Lips, Normal Voice, No Airway Compromise Head: Atraumatic, Normocephalic Neck: Normal Inspection, Full Range of Motion Respiratory/Chest: No Respiratory Distress, Lungs Clear (but distant lung sounds ; this is after the duoneb treatment), Wheezing (initially but cleared with duoneb). No: Stridor Cardiovascular: Regular Rate, Rhythm, No Murmur GI/Abdominal: Soft, Non-Tender, No Distention Back Exam: Normal Inspection, Full Range of Motion. No: CVA Tenderness (L), CVA Tenderness (R) Neurological: Alert, Oriented, Normal Cognition, No Motor/Sensory Deficits Psychiatric: Normal Affect, Normal Mood Skin Exam: Warm, Dry, Intact, Normal Color, No Rash Course - Vital Signs Last Recorded V/S: Last Vital Signs Temp 100.4 F 10/21/18 00:23 Pulse 101 H 10/21/18 00:23 Resp 28 H 10/21/18 00:23 BP 154/57 H 10/21/18 00:23 Pulse Ox 90 L 10/21/18 00:23 - Orders/Labs/Meds Orders: Active Orders 24 hr Category Date Time Status Patient Status Manage Transfer [TRANSFER] Routine ADT 10/21/18 01:28 Ordered Patient Status [ADT] Routine ADT 10/21/18 01:24 Ordered RT Aerosol Therapy [RC] ASDIRECTED Care 10/21/18 00:20 Active Chest 2V [CR] Stat Exams 10/21/18 00:19 Ordered CULTURE BLOOD [BC] Stat Lab 10/21/18 01:03 Received CULTURE BLOOD [BC] Stat Lab 10/21/18 01:15 Received Azithromycin [Zithromax] 500 mg Med 10/21/18 01:26 Active Sodium Chloride 0.9% [Normal Saline] 250 ml IV ONETIME cefTRIAXone [Rocephin] Med 10/21/18 01:30 Active 1 gm IVPUSH Q24H Blood Culture x2 Reflex Set [OM.PC] Stat Oth 10/21/18 00:51 Ordered Medication Orders Ceftriaxone Sodium (Rocephin) 1 gm IVPUSH Q24H TRUNG Last Admin: 10/21/18 01:32 Dose: 1 gm Azithromycin 500 mg/ Sodium (Chloride) 250 mls @ 250 mls/hr IV ONETIME ONE Stop: 10/21/18 02:25 Labs: Laboratory Tests 10/21/18 10/21/18 10/21/18 Range/Units 01:03 01:03 01:03 WBC 5.06 (5.00-10.00) 10^3/uL RBC 4.14 L (4.50-6.00) 10^6/uL Hgb 12.7 L (13.0-17.0) g/dL Hct 39.1 L (40.0-52.0) % MCV 94.4 H D (82.0-92.0) fL MCH 30.7 (27.0-31.0) pg MCHC 32.5 (32.0-36.0) g/dL RDW 15.4 H (11.5-14.5) % Plt Count 119 L (150-400) 10^3/uL MPV 10.1 (7.4-10.4) fL Immature Gran % (Auto) 0.2 (0.0-5.0) % Neut % (Auto) 56.5 (50.0-70.0) % Lymph % (Auto) 32.0 (20.0-40.0) % [place] % (Auto) 9.5 H (2.0-8.0) % Eos % (Auto) 1.2 (1.0-3.0) % Baso % (Auto) 0.6 (0.0-1.0) % Immature Gran # (Auto) 0.01 (0.00-0.50) 10^3/uL Neut # (Auto) 2.86 (2.50-7.00) 10^3/uL Lymph # (Auto) 1.62 (1.00-4.00) 10^3/uL [place] # (Auto) 0.48 (0.10-0.80) 10^3/uL Eos # (Auto) 0.06 L (0.10-0.30) 10^3/uL Baso # (Auto) 0.03 (0.00-0.10) 10^3/uL Sodium 143 (136-145) mmol/L Potassium 3.6 (3.3-5.3) mmol/L Chloride 108 (98-115) mmol/L Carbon Dioxide 27.2 (21.0-32.0) mmol/L Anion Gap 11.4 (5-15) mmol/L BUN 15 (6-25) mg/dL Creatinine 0.88 (0.51-1.17) mg/dL Est Cr Clr Drug Dosing 70.28 mL/min Estimated GFR (MDRD) > 60 mL/min Glucose 117 H (75 - 99) mg/dL Lactic Acid 1.8 (0.4-2.0) mmol/L Calcium 8.1 L (8.7-10.3) mg/dL B-Natriuretic Peptide 93 (0-100) pg/mL Meds: Medications Generic Name Dose Route Start Last Admin Trade Name Freq PRN Reason Stop Dose Admin Ceftriaxone Sodium 1 gm 10/21/18 01:30 10/21/18 01:32 Rocephin IVPUSH 1 gm Q24H TRUNG Administration Azithromycin 500 mg/ Sodium 250 mls @ 250 mls/hr 10/21/18 01:26 Chloride IV 10/21/18 02:25 ONETIME ONE Discontinued Medications Generic Name Dose Route Start Last Admin Trade Name Freq PRN Reason Stop Dose Admin Albuterol/Ipratropium 3 ml 10/21/18 00:20 10/21/18 00:22 Duoneb 3.0-0.5 Mg/3 Ml NEB 10/21/18 00:21 3 ml ONETIME ONE Administration Albuterol/Ipratropium Confirm 10/21/18 00:17 10/21/18 00:22 Duoneb 3.0-0.5 Mg/3 Ml Administered 10/21/18 00:18 Not Given Dose 3 ml .ROUTE .STK-MED ONE - Re-Assessments/Exams Free Text/Narrative Re-Assessment/Exam: 10/21/18 01:21 CXR shows bilat infiltrates and peribronchial interstitial thickening suggesting bronchitis also. Labs pending. Breathing improved significantly with DuoNeb but he still desatted to 88% off oxygen while transferring for xray. 10/21/18 01:50 Labs okay. Discussed findings and treatment plan with patient who agreed with admission. Discussed also with Gertrude Mena NP who accepted for admission. Patient was started on Rocephin and Azithromycin as ER patient and transferred from ER in stable condition. Departure - Departure Time of Disposition: 01:52 Disposition: Admitted As Inpatient 64 Condition: Good Clinical Impression: Hypoxemia requiring supplemental oxygen CAP (community acquired pneumonia) Qualifiers: Laterality: unspecified laterality Qualified Code(s): J18.9 - Pneumonia, unspecified organism - Discharge Information Forms: ED Department Discharge - My Orders Last 24 Hours: My Active Orders 10/21/18 00:19 Chest 2V [CR] Stat 10/21/18 00:20 RT Aerosol Therapy [RC] ASDIRECTED 10/21/18 00:51 Blood Culture x2 Reflex Set [OM.PC] Stat 10/21/18 01:03 CULTURE BLOOD [BC] Stat 10/21/18 01:15 CULTURE BLOOD [BC] Stat 10/21/18 01:24 Patient Status [ADT] Routine 10/21/18 01:26 Azithromycin [Zithromax] 500 mg Sodium Chloride 0.9% [Normal Saline] 250 ml IV ONETIME 10/21/18 01:28 Patient Status Manage Transfer [TRANSFER] Routine 10/21/18 01:30 cefTRIAXone [Rocephin] 1 gm IVPUSH Q24H - Assessment/Plan Last 24 Hours: My Active Orders 10/21/18 00:19 Chest 2V [CR] Stat 10/21/18 00:20 RT Aerosol Therapy [RC] ASDIRECTED 10/21/18 00:51 Blood Culture x2 Reflex Set [OM.PC] Stat 10/21/18 01:03 CULTURE BLOOD [BC] Stat 10/21/18 01:15 CULTURE BLOOD [BC] Stat 10/21/18 01:24 Patient Status [ADT] Routine 10/21/18 01:26 Azithromycin [Zithromax] 500 mg Sodium Chloride 0.9% [Normal Saline] 250 ml IV ONETIME 10/21/18 01:28 Patient Status Manage Transfer [TRANSFER] Routine 10/21/18 01:30 cefTRIAXone [Rocephin] 1 gm IVPUSH Q24H
[2018-10-21] MEDS ORDERED: Azithromycin 500 MG in Sodium Chloride 0.9% 250 ML IV ONE (01:26)
[2018-10-21] MEDS ORDERED: cefTRIAXone 1 GM Vial IVPUSH SCH ×2 (01:30→20:00)
[2018-10-21 01:43] LABS: ANION GAP 11.4 mmol/L (5-15); CHLORIDE,CL 108 mmol/L (98-115); SODIUM,NA 143 mmol/L (136-145)
[2018-10-21] MEDS ORDERED: Nystatin Crm 15 GM Tube TOP PRN (05:27)
[2018-10-21] MEDS ORDERED: Acetaminophen 650 MG Tab.ER PO SCH (05:27)
[2018-10-21] MEDS ORDERED: Albuterol/Ipratropium 3.0-0.5 MG/3 ML Neb Soln NEB PRN (05:27)
[2018-10-21] MEDS ORDERED: Capsaicin 0.025% Crm 60 GM Tube TOP PRN (06:00)
[2018-10-21] MEDS: Esomeprazole 40 MG Cap PO SCH (08:29)
[2018-10-21] MEDS: metFORMIN 500 MG Tab PO SCH ×2 (09:01→17:49)
[2018-10-21] MEDS: chlordiazePOXIDE 10 MG Cap PO SCH ×2 (09:01→17:48)
[2018-10-21] MEDS: busPIRone 10 MG Tab PO SCH ×2 (09:01→17:49)
[2018-10-21] MEDS: Acetaminophen 650 MG Tab.ER PO SCH ×2 (09:05→17:49)
[2018-10-21] MEDS: Allopurinol 100 MG Tab PO SCH (09:05)
[2018-10-21] MEDS: Tamsulosin 0.4 MG Cap.ER PO SCH (09:05)
[2018-10-21] MEDS: Terazosin 5 MG Cap PO SCH (09:06)
[2018-10-21] MEDS: Lisinopril 20 MG Tab PO SCH (09:06)
--- NOTE | 2018-10-21 12:01 | PCM.HP ---
H&P History of Present Illness - General Date of Service: 10/21/18 Admit Problem/Dx: Admission Diagnosis/Problem Admission Diagnosis/Problem CAP (community acquired pneumonia) due to MSSA ( methicillin sensitive Staphylococcus aureus) Source of Information: Patient, Family, Other (ER notes) History Limitations: Reports: Altered Mental Status, Other (dementia. provides the majority of information) - History of Present Illness Initial Comments - Free Text/Narative: HPI: Pt and report that he was feeling fine when he went to bed last night. states he woke her up saying he couldn't breath, she should call the ambulance, which she did. They both report he is feeling much better this morning. They deny any coughing. He reports he does have a nebulizer at home which he uses rarely--less than weekly, maybe less than monthly. On admission his Temp was 100.4, Heart rate 101, resp 28, O2 Sats 90 and BP 154/ 57. This morning his VS are WNL at T:97.9, Pulse bradycardic at 54, Resp 20, BP continues mildly elevated at 148/80. Pt has dementia and lives with his at home. She reports she has checked with the local detention in [place] to see if they can't both be admitted [facility] the [facility]. She reports they were told this was possible and she would like to do so. Pt states he will not go into the detention unless his goes with him. Clinic problem list included at risk for self care deficit, ineffective medication administration routine at home and falls in the setting of being on an anticoagulant. Pt has a history of Htn managed with lisinopril 20 mg daily. Pt has history of Atrial flutter with controlled response. He is on coumadin. His heart rate has been bradycardic. He has a history of diabetes managed with Metformin 1000 mg bid. He is on a statin and an BASIM He has a history of BPH managed with tamsulosin 0.4 mg daily and hytrin 5 mg daily. He has a history of gout with gouty arthropathy and is on allopurinol 300 mg daily. Pt has osteoarthritis with chronic pain of both knees. He uses tylenol arthritis and capsaicin arthritis relief cream prn. Pt has anxiety managed with Buspar 10 mg bid and librium 10 mg bid He was last hospitalized 09/20-09/23/18 with acute on chronic diastolic CHF. He does not use BASIM wraps and his legs continue to be very edematous. Onset of Symptoms: Reports: Sudden Symptom Onset Date: 10/21/18 Duration of Symptoms: Reports: Hour(s): Location: Reports: Other (shortness of breath) denies Pain Score (Numeric/FACES): 0 - Related Data Allergies/Adverse Reactions: Allergies Allergy/AdvReac Type Severity Reaction Status Date / Time omeprazole magnesium Allergy Intermediate Cannot Verified 10/21/18 05:23 [From Prilosec] Remember cimetidine [From Tagamet] Allergy Rash Verified 10/21/18 05:23 cimetidine HCl [From Tagamet] Allergy Rash Verified 10/21/18 05:23 codeine Allergy Hallucinati Verified 10/21/18 05:23 ons omeprazole [From Prilosec] Allergy Cannot Verified 10/21/18 05:23 Remember Home Medications: Home Meds busPIRone [Buspar] 10 mg PO BIDMEALS 08/16/17 [History] chlordiazePOXIDE [Librium] 10 mg PO BIDMEALS 08/16/17 [History] Acetaminophen [Tylenol Arthritis] 650 mg PO Q8H 01/28/18 [History] Allopurinol [Zyloprim] 300 mg PO DAILY 01/29/18 [History] Esomeprazole [NexIUM] 40 mg PO ACBREAKFAST 01/29/18 [History] metFORMIN HCl [Metformin HCl] 1,000 mg PO BIDMEALS 01/29/18 [History] Capsaicin [Arthritis Pain Relief] 1 applic TP TID PRN 09/20/18 [History] Tamsulosin [Flomax] 0.4 mg PO QAM 09/20/18 [History] Terazosin [Hytrin] 5 mg PO DAILY 09/20/18 [History] atorvaSTATin [Lipitor] 40 mg PO BEDTIME 09/20/18 [History] Lisinopril 20 mg PO DAILY #30 tab 09/23/18 [Rx] Warfarin [Coumadin] 5 mg PO DAILY@1800 #30 tablet 09/23/18 [Rx] Nystatin [Nystatin Crm] 1 gm TOP BID PRN 10/21/18 [History] Past Medical History HEENT History: Reports: Cataract, Hard of Hearing, Impaired Vision Cardiovascular History: Reports: Afib, Heart Failure, High Cholesterol, Hypertension, [place] Respiratory History: Reports: Pneumonia, Recurrent Gastrointestinal History: Reports: Chronic Constipation, GERD, Hemorrhoids Genitourinary History: Reports: BPH Musculoskeletal History: Reports: Arthritis, Back Pain, Chronic Other Musculoskeletal History: chronic knee pain Neurological History: Reports: TIA Other Neuro History: this admit Psychiatric History: Reports: Anxiety, Dementia, Depression, Mood Swings Endocrine/Metabolic History: Reports: Diabetes, Type II, Obesity/BMI 30+ Hematologic History: Reports: None Immunologic History: Reports: None Oncologic (Cancer) History: Reports: None Dermatologic History: Reports: Other (See Below) Other Dermatologic History: scattered scabs, picks/scratches at skin - Infectious Disease History Infectious Disease History: Reports: Measles - Past Surgical History HEENT Surgical History: Reports: Cataract Surgery, Oral Surgery Respiratory Surgical History: Reports: None GI Surgical History: Reports: Cholecystectomy, Colonoscopy, EGD, Hernia, Abdominal Oncologic Surgical History: Reports: None Dermatological Surgical History: Reports: None Social & Family History - Family History Family Medical History: Noncontributory HEENT: Reports: None Cardiac: Reports: Hypertension, [place] Respiratory: Reports: None GI: Reports: None : Reports: None OBGYN: Reports: None Musculoskeletal: Reports: None Neurological: Reports: None Psychiatric: Reports: None Endocrine/Metabolic: Reports: None Hematologic: Reports: None Immunologic: Reports: None Dermatologic: Reports: None Oncologic: Reports: Prostate - Tobacco Use Smoking Status *Q: Never Smoker Second Hand Smoke Exposure: No - Caffeine Use Caffeine Use: Reports: Coffee - Recreational Drug Use Recreational Drug Use: No - Living Situation & Occupation Living situation: Reports: (he has dementia with self care deficit. His provides cares for him at home. Wanting NH placement) Occupation: Retired H&P Review of Systems - Review of Systems: Review Of Systems: See Below General: Reports: Fever, Other (last night only) HEENT: Reports: No Symptoms Pulmonary: Reports: Shortness of Breath. Denies: Wheezing, Cough, Sputum Cardiovascular: Reports: No Symptoms. Denies: Chest Pain Gastrointestinal: Reports: No Symptoms Genitourinary: Reports: No Symptoms Musculoskeletal: Reports: Other (osteoarthritis and chronic knee pain) Skin: Reports: Other (lesions between toes) Psychiatric: Reports: Anxiety, Other (dementia) Neurological: Reports: Difficulty Walking (due to arthritis, knee pain and obesity) Exam - Exam Exam: See Below - Vital Signs Vital Signs: Last Vital Signs Temp 97.9 F 10/21/18 06:56 Pulse 54 L 10/21/18 06:56 Resp 20 10/21/18 06:56 BP 148/80 H 10/21/18 09:06 Pulse Ox 97 10/21/18 06:56 Weight: 329 lb - Exam Quality Assessment: Supplemental Oxygen General: Alert, Cooperative Lungs: Crackles (few crackles at bilateral bases) Cardiovascular: Regular Rate (rate 57), Regular Rhythm GI/Abdominal Exam: Normal Bowel Sounds, Soft, Non-Tender, Other (obese abdomen) (Male) Exam: Deferred Rectal (Males) Exam: Deferred Extremities: Pedal Edema (3+ pedal edema from toes to knees vamsi.) Skin: Other (moist fissures and erythema between all toes vamsi.) Neuro Extensive - Mental Status: Alert. No: Normal Cognition Psychiatric: Alert, Normal Mood - Patient Data Lab Results Last 24 hrs: Laboratory Results - last 24 hr 10/21/18 10/21/18 10/21/18 Range/Units 01:03 01:03 01:03 WBC 5.06 (5.00-10.00) 10^3/uL RBC 4.14 L (4.50-6.00) 10^6/uL Hgb 12.7 L (13.0-17.0) g/dL Hct 39.1 L (40.0-52.0) % MCV 94.4 H D (82.0-92.0) fL MCH 30.7 (27.0-31.0) pg MCHC 32.5 (32.0-36.0) g/dL RDW 15.4 H (11.5-14.5) % Plt Count 119 L (150-400) 10^3/uL MPV 10.1 (7.4-10.4) fL Immature Gran % (Auto) 0.2 (0.0-5.0) % Neut % (Auto) 56.5 (50.0-70.0) % Lymph % (Auto) 32.0 (20.0-40.0) % [place] % (Auto) 9.5 H (2.0-8.0) % Eos % (Auto) 1.2 (1.0-3.0) % Baso % (Auto) 0.6 (0.0-1.0) % Immature Gran # (Auto) 0.01 (0.00-0.50) 10^3/uL Neut # (Auto) 2.86 (2.50-7.00) 10^3/uL Lymph # (Auto) 1.62 (1.00-4.00) 10^3/uL [place] # (Auto) 0.48 (0.10-0.80) 10^3/uL Eos # (Auto) 0.06 L (0.10-0.30) 10^3/uL Baso # (Auto) 0.03 (0.00-0.10) 10^3/uL Sodium 143 (136-145) mmol/L Potassium 3.6 (3.3-5.3) mmol/L Chloride 108 (98-115) mmol/L Carbon Dioxide 27.2 (21.0-32.0) mmol/L Anion Gap 11.4 (5-15) mmol/L BUN 15 (6-25) mg/dL Creatinine 0.88 (0.51-1.17) mg/dL Est Cr Clr Drug Dosing 70.28 mL/min Estimated GFR (MDRD) > 60 mL/min Glucose 117 H (75 - 99) mg/dL Lactic Acid 1.8 (0.4-2.0) mmol/L Calcium 8.1 L (8.7-10.3) mg/dL B-Natriuretic Peptide 93 (0-100) pg/mL Result Diagrams: 10/21/18 01:03 10/21/18 01:03 Problem List Initiated/Reviewed/Updated: Yes Orders Last 24hrs: Active Orders 24 hr Category Date Time Status Oxygen Therapy [RC] PRN Care 10/21/18 05:27 Active RT Aerosol Therapy [RC] ASDIRECTED Care 10/21/18 05:27 Active Up With Assistance [RC] ASDIRECTED Care 10/21/18 05:27 Active Vital Signs [RC] 0300,0700,1100,1500,1900,2300 Care 10/21/18 05:27 Active Regular Diet [DIET] Diet 10/21/18 Breakfast Active Chest 2V [CR] Stat Exams 10/21/18 00:19 Stop Req CULTURE BLOOD [BC] Stat Lab 10/21/18 01:03 Received CULTURE BLOOD [BC] Stat Lab 10/21/18 01:15 Received Acetaminophen [Tylenol Arthritis Pain] Med 10/21/18 09:00 Active 650 mg PO Q8H Albuterol/Ipratropium [DuoNeb 3.0-0.5 MG/3 ML] Med 10/21/18 05:27 Active 3 ml NEB Q4HRRT PRN Allopurinol [Zyloprim] Med 10/21/18 09:00 Active 300 mg PO DAILY Capsaicin [Zostrix 0.025% Crm] Med 10/21/18 06:00 Active 0 gm TOP TID PRN Esomeprazole [NexIUM] Med 10/21/18 07:30 Active 40 mg PO ACBREAKFAST Lisinopril [Prinivil] Med 10/21/18 09:00 Active 20 mg PO DAILY Nystatin [Nystatin Crm] Med 10/21/18 05:27 Active 1 gm TOP BID PRN Tamsulosin [Flomax] Med 10/21/18 09:00 Active 0.4 mg PO QAM Terazosin [Hytrin] Med 10/21/18 09:00 Active 5 mg PO DAILY Warfarin [Coumadin] Med 10/21/18 18:00 Active 5 mg PO DAILY@1800 atorvaSTATin [Lipitor] Med 10/21/18 21:00 Active 40 mg PO BEDTIME busPIRone [Buspar] Med 10/21/18 08:00 Active 10 mg PO BIDMEALS chlordiazePOXIDE [Librium] Med 10/21/18 08:00 Active 10 mg PO BIDMEALS metFORMIN [Glucophage] Med 10/21/18 08:00 Active 1,000 mg PO BIDMEALS Medication Orders Acetaminophen (Tylenol Arthritis Pain) 650 mg PO Q8H [facility] Last Admin: 10/21/18 09:05 Dose: 650 mg Albuterol/Ipratropium (Duoneb 3.0-0.5 Mg/3 Ml) 3 ml NEB Q4HRRT PRN PRN Reason: Wheezing Allopurinol (Zyloprim) 300 mg PO DAILY [facility] Last Admin: 10/21/18 09:05 Dose: 300 mg Atorvastatin Calcium (Lipitor) 40 mg PO BEDTIME [facility] Buspirone HCl (Buspar) 10 mg PO BIDMEALS [facility] Last Admin: 10/21/18 09:01 Dose: 10 mg Capsaicin (Zostrix 0.025% Crm) 0 gm TOP TID PRN PRN Reason: Pain Chlordiazepoxide HCl (Librium) 10 mg PO BIDMEALS [facility] Last Admin: 10/21/18 09:01 Dose: 10 mg Esomeprazole Magnesium (Nexium) 40 mg PO ACBREAKFAST [facility] Last Admin: 10/21/18 08:29 Dose: Lisinopril (Prinivil) 20 mg PO DAILY [facility] Last Admin: 10/21/18 09:06 Dose: 20 mg Metformin HCl (Glucophage) 1,000 mg PO BIDMEALS [facility] Last Admin: 10/21/18 09:01 Dose: 1,000 mg Nystatin (Nystatin Crm) 1 gm TOP BID PRN PRN Reason: Rash Tamsulosin HCl (Flomax) 0.4 mg PO QAM [facility] Last Admin: 10/21/18 09:05 Dose: 0.4 mg Terazosin HCl (Hytrin) 5 mg PO DAILY [facility] Last Admin: 10/21/18 09:06 Dose: 5 mg Warfarin Sodium (Coumadin) 5 mg PO DAILY@1800 [facility] Assessment/Plan Comment:: # Sudden onset of shortness of breath without coughing or wheezing. Fever, tachycardia, O2 Sats at 90%. Preliminary reading of CXR reported Bronchitis, bilateral basilar infiltrates. Final reading today is reporting Bibasilar hypoventilatory changes, borderline increased pulmonary vascularity, minimal pleural effusion on the right. He was started on Rocephin and azithromycin for initial assessment of pneumonia. Labs showing no leukocytosis, no neutrophilia. BNP is WNL at 93. Renal functions are WNL. VS are stable this morning. Will discontinue antibiotics and give lasix 20 mg IV with potassium 10 mEq po for minimal pleural effusion on the right. # Diastolic CHF with pedal edema: He was last hospitalized 09/20-09/23/18 with acute on chronic diastolic CHF. He does not use BASIM wraps and his legs continue to be very edematous. BNP WNL at 93. Lasix 20 mg IV and potassium 10 mEq po daily. # Self care deficit with dementia, ineffective medication administration routine at home and falls in the setting of being on an anticoagulant: Pt has been unwilling to go to [place]. Today he is agreeable to NH placement if his will also go. She is agreeable to this. office services representative will work on placement to [facility]. # history of Htn: continue lisinopril 20 mg daily. # history of Atrial flutter with controlled response. Continue coumadin. His heart rate has been bradycardic. Will monitor INR due to antibiotic administration while on coumadin. # history of diabetes. Continue Metformin 1000 mg bid. He is on a statin and an BASIM # history of BPH: continue tamsulosin 0.4 mg daily and hytrin 5 mg daily. # history of gout with gouty arthropathy: Continue allopurinol 300 mg daily. # osteoarthritis with chronic pain of both knees: Continue tylenol arthritis and capsaicin arthritis relief cream prn. # anxiety managed with Buspar 10 mg bid and librium 10 mg bid. continue same.
[2018-10-21] MEDS: Potassium Chloride 10 MEQ Tab.ER PO SCH (14:00)
[2018-10-21] MEDS: Furosemide 40 MG/4 ML VIAL IVPUSH SCH (14:00)
[2018-10-21] MEDS: Betamethasone Dipropionate/Clotrimazole 0.05-1% Crm 15 GM Tube TOP SCH ×2 (15:20→21:09)
[2018-10-21] MEDS ORDERED: Warfarin 5 MG Tab PO SCH (18:00)
[2018-10-21] MEDS ORDERED: Azithromycin 250 MG in Sodium Chloride 0.9% 250 ML IV SCH (20:00)
[2018-10-21] MEDS ORDERED: atorvaSTATin 40 MG Tab PO SCH (21:00)
[2018-10-22] MEDS: Acetaminophen 650 MG Tab.ER PO SCH ×2 (00:04→08:26)
[2018-10-22 07:52] LABS: ANION GAP 16.2 mmol/L (5-15); CHLORIDE,CL 107 mmol/L (98-115); SODIUM,NA 147 mmol/L (136-145)
[2018-10-22] MEDS: Esomeprazole 40 MG Cap PO SCH (07:52)
[2018-10-22] MEDS: chlordiazePOXIDE 10 MG Cap PO SCH (08:25)
[2018-10-22] MEDS: Tamsulosin 0.4 MG Cap.ER PO SCH (08:25)
[2018-10-22] MEDS: Allopurinol 100 MG Tab PO SCH (08:25)
[2018-10-22] MEDS: busPIRone 10 MG Tab PO SCH (08:26)
[2018-10-22] MEDS: Potassium Chloride 10 MEQ Tab.ER PO SCH (08:26)
[2018-10-22] MEDS: metFORMIN 500 MG Tab PO SCH (08:26)
[2018-10-22] MEDS: Furosemide 40 MG/4 ML VIAL IVPUSH SCH (08:27)
[2018-10-22] MEDS ORDERED: Pantoprazole 40 MG Tab.CR PO SCH ×2 (08:28→08:30)
[2018-10-22] MEDS: Lisinopril 20 MG Tab PO SCH (08:28)
[2018-10-22] MEDS ORDERED: Sodium Chloride 0.9% 10 ML Syringe FLUSH PRN (08:36)
[2018-10-22] MEDS: Terazosin 5 MG Cap PO SCH (08:44)
--- NOTE | 2018-10-22 10:25 | PCM.DCSUM1 ---
Discharge Summary - Hospital Course Diagnosis: Stroke: No - Discharge Data Discharge Date: 10/22/18 Discharge Disposition: DC/Tfer to [facility] Condition: Fair - Patient Instructions Diet: Diabetic Diet Activity: As Tolerated, Cough & Deep Breathe Driving: Do Not Drive Showering/Bathing: May Shower Notify Provider of: Fever Other/Special Instructions: Report any further shortness of breath, chest pain, fever. - Discharge Plan *PRESCRIPTION DRUG MONITORING PROGRAM REVIEWED*: Not Applicable *COPY OF PRESCRIPTION DRUG MONITORING REPORT IN PATIENT ADARSH: Not Applicable Home Medications: Home Meds busPIRone [Buspar] 10 mg PO BIDMEALS 08/16/17 [History] chlordiazePOXIDE [Librium] 10 mg PO BIDMEALS 08/16/17 [History] Acetaminophen [Tylenol Arthritis] 650 mg PO Q8H 01/28/18 [History] Allopurinol [Zyloprim] 300 mg PO DAILY 01/29/18 [History] Esomeprazole [NexIUM] 40 mg PO ACBREAKFAST 01/29/18 [History] metFORMIN HCl [Metformin HCl] 1,000 mg PO BIDMEALS 01/29/18 [History] Capsaicin [Arthritis Pain Relief] 1 applic TP TID PRN 09/20/18 [History] Tamsulosin [Flomax] 0.4 mg PO QAM 09/20/18 [History] Terazosin [Hytrin] 5 mg PO DAILY 09/20/18 [History] atorvaSTATin [Lipitor] 40 mg PO BEDTIME 09/20/18 [History] Lisinopril 20 mg PO DAILY #30 tab 09/23/18 [Rx] Warfarin [Coumadin] 5 mg PO DAILY@1800 #30 tablet 09/23/18 [Rx] Nystatin [Nystatin Crm] 1 gm TOP BID PRN 10/21/18 [History] Referrals: [facility] [Outside] PCP,Unobtain [Ordering Only Provider] - - Discharge Summary/Plan Comment DC Time >30 min.: Yes Discharge Summary/Plan Comment: Final diagnosis Self care deficit with dementia HTN managed with lisinopril 20 mg daily. Atrial flutter CVR. T2DM BPH gout with gouty arthropathy Osteoarthritis with chronic pain of both knees. H Anxiety CHF, chronic, stable History summary Mark is a 77 morbid obese gentleman with multiple hospitalizations in the recent past with declining overall health and debilitation. He presented to the ED late at night due to a sudden onset of shortness of breath. Speaking with the is a poor historian however he did state that he woke his spouse up due to shortness of breath. Denied chest pain or any other acute illness. In the ED his Temp was 100.4, Heart rate 101, resp 28, O2 Sats 90 and BP 154/57. Over the following morning he was afebrile. Hospital course Hospital course was quite uneventful, he was giving diuretics 20 mg 2/2 shortness of breath. Antibiotics were initially started however this was quickly discontinued based off a physical examination, chest x-ray, review of systems, and a constellation of signs and symptoms not supportive of pneumonia. Preliminary reading of CXR reported Bronchitis, bilateral basilar infiltrates however final and subsequent termination demonstrated bibasilar hypoventilatory changes, borderline increased pulmonary vascularity, minimal pleural effusion on the right. Potassium was corrected. Blood cultures surveillance no growth after 1 day. BNP stable at 93 Medication changes/adjustments upon discharge None, continue all home medications Disposition: patient will be transferred to long-term care likely for 6 months to significant decline in health, instability on his gait, strengthening, he will need PT OT medication management. - General Info Functional Status: Denies: Pain Controlled (Bilateral knee pain) - Review of Systems General: Reports: Weakness. Denies: Fever, Night Sweats HEENT: Reports: No Symptoms Pulmonary: Denies: Shortness of Breath, Cough, Sputum, Wheezing Cardiovascular: Reports: Edema Gastrointestinal: Reports: No Symptoms Genitourinary: Reports: No Symptoms Musculoskeletal: Reports: Other (Bilateral knee pain) Skin: Reports: Bruising Neurological: Reports: Confusion Psychiatric: Reports: Confusion. Denies: Agitation - Patient Data Vitals - Most Recent: Last Vital Signs Temp 97.9 F 10/22/18 06:30 Pulse 57 L 10/22/18 06:30 Resp 20 10/22/18 06:30 BP 172/85 H 10/22/18 08:44 Pulse Ox 93 L 10/22/18 06:30 Weight - Most Recent: 319 lb 9 oz I&O - Last 24 hours: Intake & Output 10/21/18 10/22/18 10/22/18 22:59 06:59 14:59 Intake Total 1210 250 Output Total 150 850 Balance 1060 -600 Lab Results - Last 24 hrs: Laboratory Results - last 24 hr 10/21/18 10/22/18 10/22/18 Range/Units 21:08 06:17 07:20 WBC 5.75 (5.00-10.00) 10^3/uL RBC 4.29 L (4.50-6.00) 10^6/uL Hgb 12.8 L (13.0-17.0) g/dL Hct 39.8 L (40.0-52.0) % MCV 92.8 H (82.0-92.0) fL MCH 29.8 (27.0-31.0) pg MCHC 32.2 (32.0-36.0) g/dL RDW 15.4 H (11.5-14.5) % Plt Count 133 L (150-400) 10^3/uL MPV 10.1 (7.4-10.4) fL Immature Gran % (Auto) 0.2 (0.0-5.0) % Neut % (Auto) 64.0 (50.0-70.0) % Lymph % (Auto) 25.4 (20.0-40.0) % [place] % (Auto) 9.9 H (2.0-8.0) % Eos % (Auto) 0.2 L (1.0-3.0) % Baso % (Auto) 0.3 (0.0-1.0) % Immature Gran # (Auto) 0.01 (0.00-0.50) 10^3/uL Neut # (Auto) 3.68 (2.50-7.00) 10^3/uL Lymph # (Auto) 1.46 (1.00-4.00) 10^3/uL [place] # (Auto) 0.57 (0.10-0.80) 10^3/uL Eos # (Auto) 0.01 L (0.10-0.30) 10^3/uL Baso # (Auto) 0.02 (0.00-0.10) 10^3/uL PT (8.9-11.4) SEC INR (0.9-1.1) Sodium (136-145) mmol/L Potassium (3.3-5.3) mmol/L Chloride (98-115) mmol/L Carbon Dioxide (21.0-32.0) mmol/L Anion Gap (5-15) mmol/L BUN (6-25) mg/dL Creatinine (0.51-1.17) mg/dL Est Cr Clr Drug Dosing mL/min Estimated GFR (MDRD) mL/min Glucose (75 - 99) mg/dL POC Glucose 118 H 114 H (74-106) mg/dl Calcium (8.7-10.3) mg/dL 10/22/18 10/22/18 Range/Units 07:20 07:20 WBC (5.00-10.00) 10^3/uL RBC (4.50-6.00) 10^6/uL Hgb (13.0-17.0) g/dL Hct (40.0-52.0) % MCV (82.0-92.0) fL MCH (27.0-31.0) pg MCHC (32.0-36.0) g/dL RDW (11.5-14.5) % Plt Count (150-400) 10^3/uL MPV (7.4-10.4) fL Immature Gran % (Auto) (0.0-5.0) % Neut % (Auto) (50.0-70.0) % Lymph % (Auto) (20.0-40.0) % [place] % (Auto) (2.0-8.0) % Eos % (Auto) (1.0-3.0) % Baso % (Auto) (0.0-1.0) % Immature Gran # (Auto) (0.00-0.50) 10^3/uL Neut # (Auto) (2.50-7.00) 10^3/uL Lymph # (Auto) (1.00-4.00) 10^3/uL [place] # (Auto) (0.10-0.80) 10^3/uL Eos # (Auto) (0.10-0.30) 10^3/uL Baso # (Auto) (0.00-0.10) 10^3/uL PT 24.0 H D (8.9-11.4) SEC INR 2.4 H (0.9-1.1) Sodium 147 H (136-145) mmol/L Potassium 3.7 (3.3-5.3) mmol/L Chloride 107 (98-115) mmol/L Carbon Dioxide 27.5 (21.0-32.0) mmol/L Anion Gap 16.2 H (5-15) mmol/L BUN 12 (6-25) mg/dL Creatinine 0.85 (0.51-1.17) mg/dL Est Cr Clr Drug Dosing 72.76 mL/min Estimated GFR (MDRD) > 60 mL/min Glucose 114 H (75 - 99) mg/dL POC Glucose (74-106) mg/dl Calcium 8.2 L (8.7-10.3) mg/dL BRANDT Results - Last 24 hrs: Microbiology 10/21/18 01:15 Aerobic Blood Culture - Preliminary Blood - Venous - Lab Draw NO GROWTH AFTER 1 DAY Anaerobic Blood Culture - Preliminary NO GROWTH AFTER 1 DAY 10/21/18 01:03 Aerobic Blood Culture - Preliminary Blood - Venous NO GROWTH AFTER 1 DAY Anaerobic Blood Culture - Preliminary NO GROWTH AFTER 1 DAY Med Orders - Current: Current Medications Acetaminophen (Tylenol Arthritis Pain) 650 mg PO Q8H [facility] Last Admin: 10/22/18 08:26 Dose: 650 mg Albuterol/Ipratropium (Duoneb 3.0-0.5 Mg/3 Ml) 3 ml NEB Q4HRRT PRN PRN Reason: Wheezing Allopurinol (Zyloprim) 300 mg PO DAILY [facility] Last Admin: 10/22/18 08:25 Dose: 300 mg Atorvastatin Calcium (Lipitor) 40 mg PO BEDTIME [facility] Last Admin: 10/21/18 21:09 Dose: 40 mg Buspirone HCl (Buspar) 10 mg PO BIDMEALS [facility] Last Admin: 10/22/18 08:26 Dose: 10 mg Capsaicin (Zostrix 0.025% Crm) 0 gm TOP TID PRN PRN Reason: Pain Chlordiazepoxide HCl (Librium) 10 mg PO BIDMEALS [facility] Last Admin: 10/22/18 08:25 Dose: 10 mg Furosemide (Lasix) 20 mg IVPUSH DAILY [facility] Last Admin: 10/22/18 08:27 Dose: 20 mg Lisinopril (Prinivil) 20 mg PO DAILY [facility] Last Admin: 10/22/18 08:28 Dose: 20 mg Metformin HCl (Glucophage) 1,000 mg PO BIDMEALS [facility] Last Admin: 10/22/18 08:26 Dose: 1,000 mg Nystatin (Nystatin Crm) 1 gm TOP BID PRN PRN Reason: Rash Nystatin/Triamcinolone Acetonide (Mycolog Crm) 0 gm TOP BID [facility] Stop: 11/04/18 23:00 Pantoprazole Sodium (Protonix) 40 mg PO ACBREAKFAST [facility] Last Admin: 10/22/18 08:45 Dose: 40 mg Potassium Chloride (Klor-Con 10) 10 meq PO DAILY [facility] Last Admin: 10/22/18 08:26 Dose: 10 meq Sodium Chloride (Saline Flush) 10 ml FLUSH Q8HR PRN PRN Reason: keep IV open Tamsulosin HCl (Flomax) 0.4 mg PO QAM [facility] Last Admin: 10/22/18 08:25 Dose: 0.4 mg Terazosin HCl (Hytrin) 5 mg PO DAILY [facility] Last Admin: 10/22/18 08:44 Dose: 5 mg Warfarin Sodium (Coumadin) 5 mg PO DAILY@1800 [facility] Last Admin: 10/21/18 17:49 Dose: 5 mg Discontinued Medications Acetaminophen (Tylenol Arthritis Pain) 650 mg PO Q8H [facility] Last Admin: 10/21/18 08:02 Dose: Not Given Albuterol/Ipratropium (Duoneb 3.0-0.5 Mg/3 Ml) 3 ml NEB ONETIME ONE Stop: 10/21/18 00:21 Last Admin: 10/21/18 00:22 Dose: 3 ml Albuterol/Ipratropium (Duoneb 3.0-0.5 Mg/3 Ml) Confirm Administered Dose 3 ml .ROUTE .STK-MED ONE Stop: 10/21/18 00:18 Last Admin: 10/21/18 00:22 Dose: Not Given Betamethasone/Clotrimazole (Lotrisone) 0 gm TOP BID [facility] Stop: 11/04/18 12:01 Last Admin: 10/21/18 21:09 Dose: Not Given Ceftriaxone Sodium (Rocephin) 1 gm IVPUSH Q24H [facility] Last Admin: 10/21/18 01:32 Dose: 1 gm Ceftriaxone Sodium (Rocephin) 1 gm IVPUSH Q24H [facility] Esomeprazole Magnesium (Nexium) 40 mg PO ACBREAKFAST [facility] Last Admin: 10/22/18 07:52 Dose: Not Given Azithromycin 500 mg/ Sodium (Chloride) 250 mls @ 250 mls/hr IV ONETIME ONE Stop: 10/21/18 02:25 Last Admin: 10/21/18 02:28 Dose: 250 mls/hr Azithromycin 250 mg/ Sodium (Chloride) 250 mls @ 250 mls/hr IV Q24H [facility] Pantoprazole Sodium (Protonix) 40 mg PO ACBREAKFAST [facility] - Exam Quality Assessment: Denies: Supplemental Oxygen General: Reports: Alert, Oriented (Confused at times however lucid and able to & answer simple questions), Cooperative, No Acute Distress Neck: Reports: Supple Lungs: Reports: Clear to Auscultation, Normal Respiratory Effort. Denies: Decreased Breath Sounds, Stridor Cardiovascular: Reports: Irregular Rhythm. Denies: Tachycardia GI/Abdominal Exam: Normal Bowel Sounds, No Abnormal Bruit (Male) Exam: Deferred Back Exam: Denies: CVA Tenderness (L), CVA Tenderness (R) Extremities: Pedal Edema (3+ BLE) Skin: Reports: Other (Upper extremities dryness, moist rash intertigo) Neurological: Reports: Normal Speech, Normal Tone, Sensation Intact. Denies: Normal Gait (Needs assist unsteady on feet) Psy/Mental Status: Reports: Alert, Normal Affect. Denies: Agitated, Hallucinations
[2018-10-22 11:13] VITALS: BP 153/76
== END 2018-10-22 12:45 | DRG 292 ==
LOC: KA.ED 00:08 → KA.MS 01:28
PROVIDERS: ADMIT Nurse Practitioner Family; ATTEND Family Medicine
DX: J18.9 Pneumonia, unspecified organism (principal); I11.0 Hypertensive heart disease with heart failure; Z68.42 Body mass index [BMI] 45.0-49.9, adult; I50.9 Heart failure, unspecified; I48.92 Unspecified atrial flutter; I50.32 Chronic diastolic (congestive) heart failure; R09.02 Hypoxemia; I48.91 Unspecified atrial fibrillation; R41.82 Altered mental status, unspecified; M19.90 Unspecified osteoarthritis, unspecified site; E78.00 Pure hypercholesterolemia, unspecified; K59.09 Other constipation; K21.9 Gastro-esophageal reflux disease without esophagitis; N40.0 Benign prostatic hyperplasia without lower urinary tract symptoms; G89.29 Other chronic pain; M54.9 Dorsalgia, unspecified; M10.9 Gout, unspecified; M17.0 Bilateral primary osteoarthritis of knee; E66.01 Morbid (severe) obesity due to excess calories; L30.4 Erythema intertrigo; E11.9 Type 2 diabetes mellitus without complications; F41.9 Anxiety disorder, unspecified; F32.9 Major depressive disorder, single episode, unspecified; F03.90 Unspecified dementia, unspecified severity, without behavioral disturbance, psychotic disturbance, mood disturbance, and anxiety; H54.7 Unspecified visual loss; H91.90 Unspecified hearing loss, unspecified ear; I25.2 Old myocardial infarction; R06.02 Shortness of breath; R06.2 Wheezing; R06.00 Dyspnea, unspecified; Z90.49 Acquired absence of other specified parts of digestive tract; Z87.01 Personal history of pneumonia (recurrent); Z86.73 Personal history of transient ischemic attack (TIA), and cerebral infarction without residual deficits; Z88.6 Allergy status to analgesic agent; Z88.8 Allergy status to other drugs, medicaments and biological substances; Z79.01 Long term (current) use of anticoagulants; Z79.84 Long term (current) use of oral hypoglycemic drugs; Z79.899 Other long term (current) drug therapy; Z91.81 History of falling
CPT/HCPCS: 36415; 71046; 80048; 82962; 83605; 83880; 85025; 85610; 87040; 94640; 99284; 99285; A9270-GY; J0456; J0696; J1940; J7050; J7620-GY

== ENCOUNTER 2018-12-06 22:34 | Emergency (ER) | payer MEDICARE, MEDICAID ==
--- NOTE | 2018-12-06 22:53 | EDM.PDOC ---
ED HPI GENERAL MEDICAL PROBLEM - General Chief Complaint: General Stated Complaint: FALL Time Seen by Provider: 12/06/18 22:46 Source of Information: Reports: Patient, EMS, EMS Notes Reviewed, Family () - History of Present Illness INITIAL COMMENTS - FREE TEXT/NARRATIVE: Patient is an 78-year-old gentleman who presents to the emergency Department this evening via EMS secondary to fall while at [employer] in [facility] this evening at approximately 2100. Per , she states that they were watching TV, he used his walker to go to the bathroom, and she heard him fall in the bathroom. She proceeded to the bathroom, was unable to get him up from floor, and called 911. Patient was transported via EMS and documentation shows no neuro focal deficit at that time. Upon presentation to the ER, patient is a alert, awake, oriented and follows commands. is also present. Patient is well-known to this facility, and evaluation by ER nurse confirms patient is acting appropriately and his typical presentation. Patient denies chest pain, shortness of breath, nausea, vomiting, headache, hip pain, extremity pain, or cervical pain. Onset: Today Onset Date: 12/06/18 Onset Time: 21:00 Location: Reports: Face, Upper Extremity, Left, Lower Extremity, Right Quality: Reports: Other (Denies any pain) Improves with: Reports: None Worsens with: Reports: None Context: Reports: Other (Fall / unwitnessed) Associated Symptoms: Reports: No Other Symptoms - Related Data Allergies Allergy/AdvReac Type Severity Reaction Status Date / Time omeprazole magnesium Allergy Intermediate Cannot Verified 12/06/18 23:17 [From Prilosec] Remember cimetidine [From Tagamet] Allergy Rash Verified 12/06/18 23:17 cimetidine HCl [From Tagamet] Allergy Rash Verified 12/06/18 23:17 codeine Allergy Hallucinati Verified 12/06/18 23:17 ons omeprazole [From Prilosec] Allergy Cannot Verified 12/06/18 23:17 Remember Home Meds: Home Meds busPIRone [Buspar] 10 mg PO BIDMEALS 08/16/17 [History] chlordiazePOXIDE [Librium] 10 mg PO BIDMEALS 08/16/17 [History] Acetaminophen [Tylenol Arthritis] 650 mg PO Q8H 01/28/18 [History] Allopurinol [Zyloprim] 300 mg PO DAILY 01/29/18 [History] Esomeprazole [NexIUM] 40 mg PO ACBREAKFAST 01/29/18 [History] metFORMIN HCl [Metformin HCl] 1,000 mg PO BIDMEALS 01/29/18 [History] Tamsulosin [Flomax] 0.4 mg PO QAM 09/20/18 [History] Terazosin [Hytrin] 5 mg PO DAILY 09/20/18 [History] atorvaSTATin [Lipitor] 40 mg PO BEDTIME 09/20/18 [History] Lisinopril 20 mg PO DAILY #30 tab 09/23/18 [Rx] Furosemide [Lasix] 20 mg PO DAILY 12/06/18 [History] Warfarin [Coumadin] 7.5 mg PO DAILY@1800 12/06/18 [History] risperiDONE [RisperiDAL] 0.25 mg PO BEDTIME 12/06/18 [History] Past Medical History HEENT History: Reports: Cataract, Hard of Hearing, Impaired Vision Cardiovascular History: Reports: Afib, Heart Failure, High Cholesterol, Hypertension, MS Respiratory History: Reports: Pneumonia, Recurrent Gastrointestinal History: Reports: Chronic Constipation, GERD, Hemorrhoids Genitourinary History: Reports: BPH Musculoskeletal History: Reports: Arthritis, Back Pain, Chronic Other Musculoskeletal History: chronic knee pain Neurological History: Reports: TIA Other Neuro History: this admit Psychiatric History: Reports: Anxiety, Dementia, Depression, Mood Swings Endocrine/Metabolic History: Reports: Diabetes, Type II, Obesity/BMI 30+ Hematologic History: Reports: None Immunologic History: Reports: None Oncologic (Cancer) History: Reports: None Dermatologic History: Reports: Other (See Below) Other Dermatologic History: scattered scabs, picks/scratches at skin - Infectious Disease History Infectious Disease History: Reports: Measles - Past Surgical History HEENT Surgical History: Reports: Cataract Surgery, Oral Surgery Respiratory Surgical History: Reports: None GI Surgical History: Reports: Cholecystectomy, Colonoscopy, EGD, Hernia, Abdominal Oncologic Surgical History: Reports: None Dermatological Surgical History: Reports: None Social & Family History - Family History Family Medical History: Noncontributory HEENT: Reports: None Cardiac: Reports: Hypertension, MS Respiratory: Reports: None GI: Reports: None : Reports: None OBGYN: Reports: None Musculoskeletal: Reports: None Neurological: Reports: None Psychiatric: Reports: None Endocrine/Metabolic: Reports: None Hematologic: Reports: None Immunologic: Reports: None Dermatologic: Reports: None Oncologic: Reports: Prostate - Caffeine Use Caffeine Use: Reports: Coffee - Living Situation & Occupation Living situation: Reports: (he has dementia with self care deficit. His provides cares for him at home. Wanting NH placement) Occupation: Retired ED ROS GENERAL - Review of Systems Review Of Systems: ROS reveals no pertinent complaints other than HPI. Constitutional: Reports: No Symptoms HEENT: Reports: No Symptoms Respiratory: Reports: No Symptoms Cardiovascular: Reports: No Symptoms Endocrine: Reports: No Symptoms GI/Abdominal: Reports: No Symptoms : Reports: No Symptoms Musculoskeletal: Reports: No Symptoms Skin: Reports: Wound (Small skin tears at left forearm and right knee, no erythema, edema, or deformity noted) Neurological: Reports: Pre-Existing Deficit (Baseline) Psychiatric: Reports: No Symptoms Hematologic/Lymphatic: Reports: No Symptoms Immunologic: Reports: No Symptoms ED EXAM, GENERAL - Physical Exam Exam: See Below Exam Limited By: No Limitations General Appearance: Alert, WD/WN, No Apparent Distress Eye Exam: Bilateral Eye: Normal Inspection Ears: Normal External Exam, Normal Canal, Normal TMs Nose: Normal Inspection, No Blood Throat/Mouth: Normal Inspection, Normal Oropharynx, No Airway Compromise Head: Facial Swelling (Minor right cheek abrasion with a 1 cm area of edema. No ocular involvement) Neck: Normal Inspection, Supple, Non-Tender, Full Range of Motion Respiratory/Chest: No Respiratory Distress, Lungs Clear, Normal Breath Sounds, No Accessory Muscle Use, Chest Non-Tender Cardiovascular: Regular Rate, Rhythm GI/Abdominal: Normal Bowel Sounds, Soft, Non-Tender Back Exam: Normal Inspection. No: CVA Tenderness (L), CVA Tenderness (R) Extremities: Non-Tender, Pedal Edema (3+ of chronic nature), Other (Left forearm with 1 cm skin avulsion) Neurological: Alert, Oriented, Normal Cognition, Other (Interacting as typical for patient. Described by nursing staff who is familiar with patient.) Psychiatric: Normal Affect, Normal Mood Skin Exam: Warm, Dry, Wound/Incision (As above), Other (Multiple small excoriations on upper extremities and trunk.) EKG INTERPRETATION EKG Date: 12/06/18 Time: 22:55 Rhythm: A-Flutter Rate (Beats/Min): 55 [place]: LAD-Left [place] Deviation QRS: LBBB ST-T: Normal QT: Normal Comparison: No Change (From EKG on 09/20/2018) Course - Vital Signs Last Recorded V/S: Last Vital Signs Temp 97 F 12/06/18 22:35 Pulse 55 L 12/06/18 22:35 Resp 18 12/06/18 22:35 BP 139/55 L 12/06/18 22:35 Pulse Ox 91 L 12/06/18 22:35 - Orders/Labs/Meds Orders: Active Orders 24 hr Category Date Time Status EKG Documentation Completion [RC] ASDIRECTED Care 12/06/18 22:47 Ordered CULTURE URINE [RM] Stat Lab 12/07/18 00:11 Ordered INR,PT,PROTHROMBIN TIME [COAG] Stat Lab 12/06/18 23:22 Ordered EKG 12 Lead [EK] Routine Ther 12/06/18 22:46 Ordered Labs: Laboratory Tests 12/06/18 12/06/18 12/06/18 Range/Units 23:35 23:40 23:40 WBC 5.27 (5.00-10.00) 10^3/uL RBC 4.19 L (4.50-6.00) 10^6/uL Hgb 12.3 L (13.0-17.0) g/dL Hct 39.9 L (40.0-52.0) % MCV 95.2 H (82.0-92.0) fL MCH 29.4 (27.0-31.0) pg MCHC 30.8 L (32.0-36.0) g/dL RDW 15.0 H (11.5-14.5) % Plt Count 120 L (150-400) 10^3/uL MPV 10.6 H (7.4-10.4) fL Immature Gran % (Auto) 0.2 (0.0-5.0) % Neut % (Auto) 76.6 H (50.0-70.0) % Lymph % (Auto) 15.0 L (20.0-40.0) % [place] % (Auto) 7.2 (2.0-8.0) % Eos % (Auto) 0.6 L (1.0-3.0) % Baso % (Auto) 0.4 (0.0-1.0) % Immature Gran # (Auto) 0.01 (0.00-0.50) 10^3/uL Neut # (Auto) 4.04 (2.50-7.00) 10^3/uL Lymph # (Auto) 0.79 L (1.00-4.00) 10^3/uL [place] # (Auto) 0.38 (0.10-0.80) 10^3/uL Eos # (Auto) 0.03 L (0.10-0.30) 10^3/uL Baso # (Auto) 0.02 (0.00-0.10) 10^3/uL Sodium 150 H (136-145) mmol/L Potassium 3.2 L (3.3-5.3) mmol/L Chloride 108 (98-115) mmol/L Carbon Dioxide 28.1 (21.0-32.0) mmol/L Anion Gap 17.1 H (5-15) mmol/L BUN 20 (6-25) mg/dL Creatinine 0.91 (0.51-1.17) mg/dL Est Cr Clr Drug Dosing 71.06 mL/min Estimated GFR (MDRD) > 60 mL/min Glucose 150 H (75 - 99) mg/dL Calcium 8.1 L (8.7-10.3) mg/dL Total Bilirubin 0.6 (0.2-1.0) mg/dL AST 86 H (15-37) U/L ALT 34 (12-78) U/L Alkaline Phosphatase 110 (46-116) IU/L Total Protein 6.7 (6.4-8.2) g/dL Albumin 3.05 (3.00-4.80) g/dL Specimen Type Urincath Urine Color Yellow (YELLOW) Urine Appearance Cloudy H (CLEAR) Urine pH 6.0 (5.0-9.0) Ur Specific [place] >= 1.030 (1.005-1.030) Urine Protein >=300 H (NEGATIVE) mg/dL Urine Glucose (UA) Negative (NEGATIVE) mg/dL Urine Ketones Negative (NEGATIVE) mg/dL Urine Occult Blood Large H (NEGATIVE) Urine Nitrite Negative (NEGATIVE) Urine Bilirubin Negative (NEGATIVE) Urine Urobilinogen 0.2 (0.2-1.0) E.U./dL Ur Leukocyte Esterase Negative (NEGATIVE) Urine RBC Semi-packed (0-5) /HPF Urine WBC 0-5 (0-5) /HPF Ur Epithelial Cells Few /LPF Urine Bacteria Moderate H (NONE TO FEW) /HPF - Re-Assessments/Exams Free Text/Narrative Re-Assessment/Exam: 12/07/18 00:15 Patient is afebrile, vital signs stable, patient denies any discomfort. Discussed findings with Associate Entertainment Editor from [employer] along with . Patient will be transported back to nursing facility and follow-up at [facility]. Departure - Departure Time of Disposition: 00:17 Disposition: DC/Tfer to Medicaid Nur Fac 62 Condition: Good Clinical Impression: Fall in elderly patient - Discharge Information Instructions: Fall Prevention in the Home, [id number] Referrals: Georgia Zabala MD [Primary Care Provider] - Forms: ED Department Discharge Additional Instructions: Follow-up at [facility] in next 1-2 days. Return to emergency department sooner if symptoms continue or worsen - My Orders Last 24 Hours: My Active Orders 12/06/18 22:46 EKG 12 Lead [EK] Routine 12/06/18 22:47 EKG Documentation Completion [RC] ASDIRECTED 12/06/18 23:22 INR,PT,PROTHROMBIN TIME [COAG] Stat 12/07/18 00:11 CULTURE URINE [RM] Stat - Assessment/Plan Last 24 Hours: My Active Orders 12/06/18 22:46 EKG 12 Lead [EK] Routine 12/06/18 22:47 EKG Documentation Completion [RC] ASDIRECTED 12/06/18 23:22 INR,PT,PROTHROMBIN TIME [COAG] Stat 12/07/18 00:11 CULTURE URINE [RM] Stat Assessment:: Fall Plan: Follow-up at [facility]
[2018-12-06 23:17] VITALS: BP 139/55
[2018-12-07 00:09] LABS: ANION GAP 17.1 mmol/L (5-15); CHLORIDE,CL 108 mmol/L (98-115); SODIUM,NA 150 mmol/L (136-145)
== END 2018-12-07 00:20 ==
LOC: KA.ED 22:34
DX: S51.802A Unspecified open wound of left forearm, initial encounter (principal); I11.0 Hypertensive heart disease with heart failure; I50.9 Heart failure, unspecified; E11.9 Type 2 diabetes mellitus without complications; E66.9 Obesity, unspecified; Z88.8 Allergy status to other drugs, medicaments and biological substances; Z88.5 Allergy status to narcotic agent; Z79.899 Other long term (current) drug therapy; W19.XXXA Unspecified fall, initial encounter; Y92.121 Bathroom in nursing home as the place of occurrence of the external cause
CPT/HCPCS: 36415; 80053; 81001; 85025; 85610; 87086; 93005; 99284; 99284-25

== ENCOUNTER 2018-12-10 21:07 | Emergency (ER) | payer MEDICARE, MEDICAID ==
[2018-12-10] MEDS ORDERED: Sodium Chloride 0.9% 1,000 ML IV ONE (21:36)
--- NOTE | 2018-12-10 21:36 | EDM.PDOC ---
ED HPI GENERAL MEDICAL PROBLEM - General Stated Complaint: FALL Time Seen by Provider: 12/10/18 21:20 Source of Information: Reports: Patient, Family () History Limitations: Reports: No Limitations - History of Present Illness INITIAL COMMENTS - FREE TEXT/NARRATIVE: [place] with report of collapsing as he was being assisted from using the bathroom, to his bed. He didn't fall but he was unresponsive for awhile. When EMS arrived pt's HR was 30, BP was 81/20 and he wasn't remembering what happened. They started oxygen at 10 L which brought sats up to 99%. Pt now feels fine and without any pain but he doesn't remember what happened. EMS tells me that patient was not alert when they arrived but he tried to resist them and take off his oxygen mask. His sats were 82% and he wasn't speaking coherently. Sats improved quickly on oxygen and he gradually became more alert and oriented en route. Here in ER he is alert and speaking clearly to us. - Related Data Allergies Allergy/AdvReac Type Severity Reaction Status Date / Time omeprazole magnesium Allergy Intermediate Cannot Verified 12/10/18 22:39 [From Prilosec] Remember cimetidine [From Tagamet] Allergy Rash Verified 12/10/18 22:39 cimetidine HCl [From Tagamet] Allergy Rash Verified 12/10/18 22:39 codeine Allergy Hallucinati Verified 12/10/18 22:39 ons omeprazole [From Prilosec] Allergy Cannot Verified 12/10/18 22:39 Remember Home Meds: Home Meds busPIRone [Buspar] 10 mg PO BIDMEALS 08/16/17 [History] chlordiazePOXIDE [Librium] 10 mg PO BIDMEALS 08/16/17 [History] Acetaminophen [Tylenol Arthritis] 650 mg PO BID 01/28/18 [History] Allopurinol [Zyloprim] 300 mg PO DAILY 01/29/18 [History] Esomeprazole [NexIUM] 40 mg PO ACBREAKFAST 01/29/18 [History] metFORMIN HCl [Metformin HCl] 1,000 mg PO BIDMEALS 01/29/18 [History] Tamsulosin [Flomax] 0.4 mg PO QAM 09/20/18 [History] Terazosin [Hytrin] 5 mg PO DAILY 09/20/18 [History] atorvaSTATin [Lipitor] 40 mg PO BEDTIME 09/20/18 [History] Lisinopril 20 mg PO DAILY #30 tab 09/23/18 [Rx] Warfarin [Coumadin] 7.5 mg PO DAILY@1800 12/06/18 [History] Furosemide [Lasix] 20 mg PO DAILY 12/10/18 [History] risperiDONE 0.25 mg PO 199912/10/18 [History] Past Medical History HEENT History: Reports: Cataract, Hard of Hearing, Impaired Vision Cardiovascular History: Reports: Afib, Heart Failure, High Cholesterol, Hypertension, [place] Respiratory History: Reports: Pneumonia, Recurrent Gastrointestinal History: Reports: Chronic Constipation, GERD, Hemorrhoids Genitourinary History: Reports: BPH Musculoskeletal History: Reports: Arthritis, Back Pain, Chronic Other Musculoskeletal History: chronic knee pain Neurological History: Reports: TIA Other Neuro History: this admit Psychiatric History: Reports: Anxiety, Dementia, Depression, Mood Swings Endocrine/Metabolic History: Reports: Diabetes, Type II, Obesity/BMI 30+ Hematologic History: Reports: None Immunologic History: Reports: None Oncologic (Cancer) History: Reports: None Dermatologic History: Reports: Other (See Below) Other Dermatologic History: scattered scabs, picks/scratches at skin - Infectious Disease History Infectious Disease History: Reports: Measles - Past Surgical History HEENT Surgical History: Reports: Cataract Surgery, Oral Surgery Respiratory Surgical History: Reports: None GI Surgical History: Reports: Cholecystectomy, Colonoscopy, EGD, Hernia, Abdominal Oncologic Surgical History: Reports: None Dermatological Surgical History: Reports: None Social & Family History - Family History Family Medical History: Noncontributory HEENT: Reports: None Cardiac: Reports: Hypertension, [place] Respiratory: Reports: None GI: Reports: None : Reports: None OBGYN: Reports: None Musculoskeletal: Reports: None Neurological: Reports: None Psychiatric: Reports: None Endocrine/Metabolic: Reports: None Hematologic: Reports: None Immunologic: Reports: None Dermatologic: Reports: None Oncologic: Reports: Prostate - Caffeine Use Caffeine Use: Reports: Coffee - Living Situation & Occupation Living situation: Reports: (he has dementia with self care deficit. His provides cares for him at home. Wanting NH placement) Occupation: Retired ED ROS GENERAL - Review of Systems Review Of Systems: See Below Constitutional: Denies: Fever, Malaise HEENT: Denies: Ear Pain, Vision Change Respiratory: Denies: Shortness of Breath, Cough Cardiovascular: Reports: Syncope Endocrine: Reports: No Symptoms GI/Abdominal: Denies: Abdominal Pain, Diarrhea, Nausea, Vomiting : Denies: Dysuria, Flank Pain Musculoskeletal: Denies: Neck Pain, Shoulder Pain, Arm Pain, Back Pain, Hand Pain, Leg Pain, Foot Pain Skin: Denies: Cyanosis, Jaundice, Mottled, Pallor, Diaphoresis Neurological: Reports: Syncope. Denies: Confusion, Dizziness, Seizure Psychiatric: Denies: Agitation, Anxiety, Confusion - Physical Exam Exam: See Below Exam Limited By: No Limitations General Appearance: Alert, WD/WN, No Apparent Distress Eye Exam: Bilateral Eye: EOMI, Normal Inspection, PERRL Ears: Normal External Exam, Hearing Grossly Normal Nose: Normal Inspection, No Blood Throat/Mouth: Normal Inspection, Normal Lips, Normal Voice, No Airway Compromise Head Exam: Atraumatic, Normocephalic Neck: Normal Inspection, Supple, Non-Tender, Full Range of Motion Respiratory/Chest: No Respiratory Distress, Decreased Breath Sounds (distant, so will get CXR), Other (He has a 6x8 cm patch of ecchymosis on central upper chest from a fall he sustained 3 days ago; was evaluated here in ER at that time.). No: Crackles, Rales, Rhonchi, Wheezing, Stridor Cardiovascular: Regular Rate, Rhythm, No Murmur GI/Abdominal: Normal Bowel Sounds, Soft, Non-Tender, No Organomegaly Neuro Exam (Abbreviated): Alert, Oriented, Normal Cognition, No Motor/Sensory Deficits Extremities: Normal Inspection, Normal Range of Motion, Non-Tender, Pedal Edema (wears TEDs) Psychiatric: Normal Affect, Normal Mood Skin Exam: Warm, Dry, Intact, Normal Color, Other (excoriations of abdomen) Course - Vital Signs Last Recorded V/S: Last Vital Signs Temp 98.0 F 12/10/18 21:10 Pulse 55 L 12/10/18 22:15 Resp 18 12/10/18 22:15 BP 136/52 L 12/10/18 22:15 Pulse Ox 97 12/10/18 22:15 - Orders/Labs/Meds Orders: Active Orders 24 hr Category Date Time Status Oxygen Therapy [RC] ASDIRECTED Care 12/10/18 22:42 Active CXR [Chest 1V Frontal] [CR] Stat Exams 12/10/18 21:32 Ordered CULTURE URINE [RM] Stat Lab 12/10/18 22:43 Ordered Labs: Laboratory Tests 12/10/18 12/10/18 12/10/18 Range/Units 21:40 21:40 22:15 WBC 4.30 L (5.00-10.00) 10^3/uL RBC 3.95 L (4.50-6.00) 10^6/uL Hgb 11.7 L (13.0-17.0) g/dL Hct 37.2 L (40.0-52.0) % MCV 94.2 H (82.0-92.0) fL MCH 29.6 (27.0-31.0) pg MCHC 31.5 L (32.0-36.0) g/dL RDW 15.0 H (11.5-14.5) % Plt Count 124 L (150-400) 10^3/uL MPV 10.9 H (7.4-10.4) fL Immature Gran % (Auto) 0.2 (0.0-5.0) % Neut % (Auto) 66.3 (50.0-70.0) % Lymph % (Auto) 20.2 (20.0-40.0) % Alexander % (Auto) 7.9 (2.0-8.0) % Eos % (Auto) 4.9 H (1.0-3.0) % Baso % (Auto) 0.5 (0.0-1.0) % Immature Gran # (Auto) 0.01 (0.00-0.50) 10^3/uL Neut # (Auto) 2.85 (2.50-7.00) 10^3/uL Lymph # (Auto) 0.87 L (1.00-4.00) 10^3/uL Alexander # (Auto) 0.34 (0.10-0.80) 10^3/uL Eos # (Auto) 0.21 (0.10-0.30) 10^3/uL Baso # (Auto) 0.02 (0.00-0.10) 10^3/uL Sodium 148 H (136-145) mmol/L Potassium 3.1 L (3.3-5.3) mmol/L Chloride 108 (98-115) mmol/L Carbon Dioxide 27.3 (21.0-32.0) mmol/L Anion Gap 15.8 H (5-15) mmol/L BUN 24 (6-25) mg/dL Creatinine 1.01 (0.51-1.17) mg/dL Est Cr Clr Drug Dosing TNP Estimated GFR (MDRD) > 60 mL/min Glucose 166 H (75 - 99) mg/dL Calcium 8.0 L (8.7-10.3) mg/dL Specimen Type Urinqcath Urine Color Yellow (YELLOW) Urine Appearance Slightly cloudy H (CLEAR) Urine pH 5.5 (5.0-9.0) Ur Specific [place] >= 1.030 (1.005-1.030) Urine Protein >=300 H (NEGATIVE) mg/dL Urine Glucose (UA) Negative (NEGATIVE) mg/dL Urine Ketones Trace H (NEGATIVE) mg/dL Urine Occult Blood Moderate H (NEGATIVE) Urine Nitrite Negative (NEGATIVE) Urine Bilirubin Small H (NEGATIVE) Urine Urobilinogen 1.0 (0.2-1.0) E.U./dL Ur Leukocyte Esterase Negative (NEGATIVE) Urine RBC >100 H (0-5) /HPF Urine WBC 0-5 (0-5) /HPF Ur Epithelial Cells Few /LPF Amorphous Sediment Few (0/HPF) /HPF Urine Bacteria Moderate H (NONE TO FEW) /HPF Meds: Medications Discontinued Medications Generic Name Dose Route Start Last Admin Trade Name Freq PRN Reason Stop Dose Admin Sodium Chloride 1,000 mls @ 999 mls/hr 12/10/18 21:36 12/10/18 21:50 Normal Saline IV 12/10/18 22:36 999 mls/hr .BOLUS ONE Administration Nitrofurantoin Macrocrystals 100 mg 12/10/18 22:47 Macrodantin PO 12/10/18 22:48 ONETIME ONE - Re-Assessments/Exams Free Text/Narrative Re-Assessment/Exam: 12/10/18 21:[address] changes and is unchanged from 3 days ago. Patient is feeling well and talking clearly and coherently. 12/10/18 23:02 CBC and CMP are okay. Cath UA shows significant bacteriuria, proteinuria and hematuria. Will culture and treat empirically with Nitrofurantoin. Wanted to treat with either Cipro or Bactrim but there were significant contraindications with other meds. Discussed findings and treatment plan with patient and his . Started antibiotic in ER. Patient discharged to home in stable condition. Departure - Departure Time of Disposition: 22:59 Disposition: DC/Tfer to [facility] 03 Condition: Fair Clinical Impression: Acute cystitis with hematuria - Discharge Information Instructions: Dehydration, Adult, [id number], Urinary Tract Infection, Adult Referrals: Georgia Zabala MD [Primary Care Provider] - Additional Instructions: 1. Drink 6-8 cups of water daily. 2. Take the Nitrofurantoin as directed. 3. Follow up with your PCP in a week for recheck or sooner if worsening. - My Orders Last 24 Hours: My Active Orders 12/10/18 21:32 CXR [Chest 1V Frontal] [CR] Stat 12/10/18 22:42 Oxygen Therapy [RC] ASDIRECTED 12/10/18 22:43 CULTURE URINE [RM] Stat - Assessment/Plan Last 24 Hours: My Active Orders 12/10/18 21:32 CXR [Chest 1V Frontal] [CR] Stat 12/10/18 22:42 Oxygen Therapy [RC] ASDIRECTED 12/10/18 22:43 CULTURE URINE [RM] Stat
[2018-12-10 22:27] LABS: ANION GAP 15.8 mmol/L (5-15); CHLORIDE,CL 108 mmol/L (98-115); SODIUM,NA 148 mmol/L (136-145)
[2018-12-10] MEDS ORDERED: Nitrofurantoin Macrocrystal 50 MG Cap PO ONE (22:47)
[2018-12-10 23:39] VITALS: BP 136/73
--- NOTE | 2018-12-11 08:06 | CR ---
[id number] RAD/RAD Chest PA or AP 1V EXAM: FRONTAL CHEST INDICATION: Syncope. COMPARISON: October 20, 2018. DISCUSSION: Increased opacification of the right lung base likely a combination of volume loss, pleural fluid and infiltrates. Stable mild atelectasis on the left. Stable cardiomegaly with borderline vascular congestion. Follow-up imaging with standing PA and lateral views may be useful. IMPRESSION: 1. Increased right base opacification likely combination of pleural fluid, atelectasis and infiltrates. 2. Cardiomegaly with mild central vascular congestion. Tree White MD 12/11/18 0805 Thank you for allowing us to participate in the care of your patient.
== END 2018-12-10 23:50 ==
LOC: KA.ED 21:07
DX: N30.01 Acute cystitis with hematuria (principal); I11.0 Hypertensive heart disease with heart failure; I50.9 Heart failure, unspecified; I48.91 Unspecified atrial fibrillation; K21.9 Gastro-esophageal reflux disease without esophagitis; E11.9 Type 2 diabetes mellitus without complications; F41.9 Anxiety disorder, unspecified; F32.9 Major depressive disorder, single episode, unspecified; Z79.899 Other long term (current) drug therapy; Z79.01 Long term (current) use of anticoagulants; Z88.8 Allergy status to other drugs, medicaments and biological substances; Z88.5 Allergy status to narcotic agent
CPT/HCPCS: 71045; 80048; 81001; 85025; 87086; 93005; 96360; 99283; 99285-25; A9270-GY; J7030

== ENCOUNTER 2018-12-13 14:29 | Inpatient (IN) | payer MEDICARE, MEDICAID ==
--- NOTE | 2018-12-13 15:13 | EDM.PDOC ---
ED HPI GENERAL MEDICAL PROBLEM - General Chief Complaint: General Stated Complaint: BLADDER INF/FLUID IN LEGS/CHF? Time Seen by Provider: 12/13/18 14:55 Source of Information: Reports: Patient, Family History Limitations: Reports: No Limitations - History of Present Illness INITIAL COMMENTS - FREE TEXT/NARRATIVE: Was Seen today at [facility] in [place] by "Gabriela" who conferred with Naman Al for discussion and treatment. Initially refused to be seen/leave the [place] for hospital consult. Finally several hours later agreed to be seen for evaluation. Increased edema to legs with questionable respiratory worsening from baseline. Is now on supplemental O2 Denies any cardiac related pain or symptoms. Acknowledges salt intake, and other irritants to CHF/edema. Onset: Today Onset Date: 12/13/18 Onset Time: 10:00 Duration: Day(s): Location: Reports: Chest, Lower Extremity, Left, Lower Extremity, Right Quality: Reports: Pressure Severity: Moderate Improves with: Reports: None Worsens with: Reports: None Associated Symptoms: Reports: No Other Symptoms - Related Data Allergies Allergy/AdvReac Type Severity Reaction Status Date / Time omeprazole magnesium Allergy Intermediate Cannot Verified 12/13/18 15:15 [From Prilosec] Remember cimetidine [From Tagamet] Allergy Rash Verified 12/13/18 15:15 cimetidine HCl [From Tagamet] Allergy Rash Verified 12/13/18 15:15 codeine Allergy Hallucinati Verified 12/13/18 15:15 ons omeprazole [From Prilosec] Allergy Cannot Verified 12/13/18 15:15 Remember Home Meds: Home Meds busPIRone [Buspar] 10 mg PO 0800,2000 08/16/17 [History] chlordiazePOXIDE [Librium] 10 mg PO 0800,1800 08/16/17 [History] Acetaminophen [Tylenol Arthritis] 650 mg PO 0800,1800 PRN 01/28/18 [History] Allopurinol [Zyloprim] 300 mg PO DAILY 01/29/18 [History] Esomeprazole [NexIUM] 40 mg PO 0730 01/29/18 [History] metFORMIN HCl [Metformin HCl] 1,000 mg PO 0800,1800 01/29/18 [History] Tamsulosin [Flomax] 0.4 mg PO 0900 09/20/18 [History] Terazosin [Hytrin] 5 mg PO 0900 09/20/18 [History] atorvaSTATin [Lipitor] 40 mg PO BEDTIME 09/20/18 [History] Lisinopril 20 mg PO DAILY #30 tab 09/23/18 [Rx] Warfarin [Coumadin] 7.5 mg PO SUMOTUWETHSA 12/06/18 [History] Furosemide [Lasix] 20 mg PO DAILY 12/10/18 [History] risperiDONE 0.25 mg PO 199912/10/18 [History] * Zinc Oxide 10% 1 spray TOP BID PRN 12/13/18 [History] Acetaminophen [Tylenol Arthritis Pain] 650 mg PO Q8HR PRN 12/13/18 [History] Bacitracin/Neomycin/Polymyxin [Neosporin Oint] 1 applic TOP DAILY 12/13/18 [ History] Nitrofurantoin [place]/Macrocryst [Nitrofurantoin [place]-MCR] 100 mg PO BID 12/13/18 [History] Warfarin [Coumadin] 5 mg PO FR 12/13/18 [History] traMADol HCl [Tramadol HCl] 50 mg PO BEDTIME PRN 12/13/18 [History] Past Medical History HEENT History: Reports: Cataract, Hard of Hearing, Impaired Vision Cardiovascular History: Reports: Afib, Heart Failure, High Cholesterol, Hypertension, ME Respiratory History: Reports: Pneumonia, Recurrent, Other (See Below) (ASBESTOS exposre likely. 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) Gastrointestinal History: Reports: Chronic Constipation, GERD, Hemorrhoids Genitourinary History: Reports: BPH Musculoskeletal History: Reports: Arthritis, Back Pain, Chronic Other Musculoskeletal History: chronic knee pain Neurological History: Reports: TIA Other Neuro History: this admit Psychiatric History: Reports: Anxiety, Dementia, Depression, Mood Swings Endocrine/Metabolic History: Reports: Diabetes, Type II, Obesity/BMI 30+ Hematologic History: Reports: None Immunologic History: Reports: None Oncologic (Cancer) History: Reports: None Dermatologic History: Reports: Other (See Below) Other Dermatologic History: scattered scabs, picks/scratches at skin - Infectious Disease History Infectious Disease History: Reports: Measles - Past Surgical History HEENT Surgical History: Reports: Cataract Surgery, Oral Surgery Respiratory Surgical History: Reports: None GI Surgical History: Reports: Cholecystectomy, Colonoscopy, EGD, Hernia, Abdominal Oncologic Surgical History: Reports: None Dermatological Surgical History: Reports: None Social & Family History - Family History Family Medical History: Noncontributory HEENT: Reports: None Cardiac: Reports: Hypertension, ME Respiratory: Reports: None GI: Reports: None : Reports: None OBGYN: Reports: None Musculoskeletal: Reports: None Neurological: Reports: None Psychiatric: Reports: None Endocrine/Metabolic: Reports: None Hematologic: Reports: None Immunologic: Reports: None Dermatologic: Reports: None Oncologic: Reports: Prostate - Tobacco Use Smoking Status *Q: Former Smoker - Caffeine Use Caffeine Use: Reports: Coffee - Alcohol Use Alcohol Use History: Yes Date of Last Drink: 09/11/79 - Living Situation & Occupation Living situation: Reports: (he has dementia with self care deficit. His provides cares for him at home. Wanting NH placement) Occupation: Retired ED ROS GENERAL - Review of Systems Review Of Systems: See Below Constitutional: Reports: Weakness, Weight Gain HEENT: Reports: No Symptoms Respiratory: Reports: Shortness of Breath Cardiovascular: Reports: Orthopnea. Denies: Chest Pain Endocrine: Reports: No Symptoms GI/Abdominal: Reports: No Symptoms : Reports: No Symptoms Skin: Reports: Bruising, Rash Neurological: Reports: No Symptoms Psychiatric: Reports: Agitation, Anxiety Hematologic/Lymphatic: Reports: Easy Bruising Immunologic: Reports: No Symptoms ED EXAM, GENERAL - Physical Exam Exam: See Below Exam Limited By: No Limitations General Appearance: Alert, WD/WN, No Apparent Distress Ears: Normal External Exam, Hearing Grossly Normal Nose: Normal Inspection, Normal Mucosa, No Blood Throat/Mouth: Normal Inspection, Normal Lips, Normal Oropharynx, Normal Voice Head: Atraumatic, Normocephalic Neck: Normal Inspection, Supple, Non-Tender, Limited Range of Motion Respiratory/Chest: No Respiratory Distress, Lungs Clear, No Accessory Muscle Use , Decreased Breath Sounds, Rhonchi Cardiovascular: Irregularly Irregular, Other (Significant edema to bilateral legs/feet. pitting in nature) GI/Abdominal: Normal Bowel Sounds, Distended. No: Tender (Male) Exam: Deferred Rectal (Males) Exam: Deferred Back Exam: Normal Inspection. No: CVA Tenderness (L), CVA Tenderness (R), Paraspinal Tenderness, Vertebral Tenderness Extremities: Pedal Edema, Other (ecchymosis to legs and specifically Rt. Foot with no pain to motion) Neurological: Alert, Oriented, CN II-XII Intact, Normal Cognition Psychiatric: Normal Affect, Normal Mood Skin Exam: Warm, Dry. No: Intact (scattered areas of "picking/scratching" blisters from fluid load leaking to lower legs Rt>Lt. Scrotum irritated rash.) EKG INTERPRETATION EKG Date: 12/13/18 Time: 19:00 Rhythm: A-Fib P-Wave: Variable QRS: Normal Comparison: NA - No Prior EKG Course - Vital Signs Last Recorded V/S: Last Vital Signs Temp 36.9 C 12/14/18 07:00 Pulse 50 L 12/14/18 07:00 Resp 32 H 12/14/18 07:00 BP 130/76 12/14/18 08:09 Pulse Ox 91 L 12/14/18 07:00 - Orders/Labs/Meds Orders: Active Orders 24 hr Category Date Time Status Insert Mooney Catheter [Insert Urinary Catheter] [OM.PC] Care 12/13/18 15:30 Ordered Q24H Urinary Catheter Assessment [RC] 0900,2100 Care 12/13/18 15:22 Active Nystatin [Nystatin Ointment] Med 12/13/18 21:00 Active 0.25 gm TOP QID EKG 12 Lead [EK] Routine Ther 12/13/18 15:20 Ordered Medication Orders Acetaminophen (Tylenol Arthritis Pain) 650 mg PO 0800,1800 PRN PRN Reason: Pain Acetaminophen (Tylenol Arthritis Pain) 650 mg PO Q8HR PRN PRN Reason: Pain Albuterol/Ipratropium (Duoneb 3.0-0.5 Mg/3 Ml) 3 ml NEB Q6HRRT PRN PRN Reason: Shortness of Breath Allopurinol (Zyloprim) 300 mg PO DAILY [facility] Last Admin: 12/14/18 08:06 Dose: 300 mg Atorvastatin Calcium (Lipitor) 40 mg PO BEDTIME [facility] Buspirone HCl (Buspar) 10 mg PO BID@0800,2000 [facility] Last Admin: 12/14/18 08:05 Dose: 10 mg Chlordiazepoxide HCl (Librium) 10 mg PO 0800,1800 [facility] Last Admin: 12/14/18 08:07 Dose: 10 mg Esomeprazole Magnesium (Nexium) 40 mg PO 0730 [facility] Furosemide (Lasix) 20 mg PO DAILY [facility] Lisinopril (Prinivil) 20 mg PO DAILY [facility] Last Admin: 12/14/18 08:09 Dose: 20 mg Metformin HCl (Glucophage) 1,000 mg PO BID@0800,1800 [facility] Last Admin: 12/14/18 08:05 Dose: 1,000 mg Neomycin/Polymyxin/Bacitracin (Triple Antibiotic Oint) 0 gm TOP DAILY [facility] Last Admin: 12/14/18 08:08 Dose: 1 applic Nitrofurantoin Macrocrystals (Macrobid) 100 mg PO BID [facility] Last Admin: 12/14/18 08:06 Dose: 100 mg Non-Formulary Medication (* Zinc Oxide 10%) 1 spray TOP BID PRN PRN Reason: redness to buttocks scrotum gr Nystatin (Nystatin Ointment) 0.25 gm TOP QID [facility] Last Admin: 12/13/18 20:17 Dose: 1 applic Risperidone (Risperidal) 0.25 mg PO 2000 [facility] Tamsulosin HCl (Flomax) 0.4 mg PO 0900 [facility] Last Admin: 12/14/18 08:07 Dose: 0.4 mg Terazosin HCl (Hytrin) 5 mg PO 0900 [facility] Last Admin: 12/14/18 08:09 Dose: 5 mg Tramadol HCl (Ultram) 50 mg PO BEDTIME PRN PRN Reason: knee pain Warfarin Sodium (Coumadin) 5 mg PO Fr@1800 [facility] Warfarin Sodium (Coumadin) 7.5 mg PO SuMoTuWeThSa@1800 [facility] Warfarin Sodium (Pharmacy To Dose - Warfarin) 1 dose .XX ASDIRECTED [facility] Labs: Laboratory Tests 12/13/18 12/13/18 12/13/18 Range/Units 15:40 15:40 15:40 WBC 6.10 (5.00-10.00) 10^3/uL RBC 4.05 L (4.50-6.00) 10^6/uL Hgb 11.7 L (13.0-17.0) g/dL Hct 38.6 L (40.0-52.0) % MCV 95.3 H (82.0-92.0) fL MCH 28.9 (27.0-31.0) pg MCHC 30.3 L (32.0-36.0) g/dL RDW 15.0 H (11.5-14.5) % Plt Count 139 L (150-400) 10^3/uL MPV 10.2 (7.4-10.4) fL Immature Gran % (Auto) 0.2 (0.0-5.0) % Neut % (Auto) 67.2 (50.0-70.0) % Lymph % (Auto) 20.0 (20.0-40.0) % [place] % (Auto) 9.2 H (2.0-8.0) % Eos % (Auto) 3.1 H (1.0-3.0) % Baso % (Auto) 0.3 (0.0-1.0) % Immature Gran # (Auto) 0.01 (0.00-0.50) 10^3/uL Neut # (Auto) 4.10 (2.50-7.00) 10^3/uL Lymph # (Auto) 1.22 (1.00-4.00) 10^3/uL [place] # (Auto) 0.56 (0.10-0.80) 10^3/uL Eos # (Auto) 0.19 (0.10-0.30) 10^3/uL Baso # (Auto) 0.02 (0.00-0.10) 10^3/uL PT 29.0 H D (8.9-11.4) SEC INR 2.9 H (0.9-1.1) Sodium 148 H (136-145) mmol/L Potassium 3.6 (3.3-5.3) mmol/L Chloride 112 (98-115) mmol/L Carbon Dioxide 27.6 (21.0-32.0) mmol/L Anion Gap 12.0 (5-15) mmol/L BUN 21 (6-25) mg/dL Creatinine 1.00 (0.51-1.17) mg/dL Est Cr Clr Drug Dosing 64.67 mL/min Estimated GFR (MDRD) > 60 mL/min Glucose 125 H (75 - 99) mg/dL Calcium 8.1 L (8.7-10.3) mg/dL Total Bilirubin 0.8 (0.2-1.0) mg/dL AST 63 H (15-37) U/L ALT 24 (12-78) U/L Alkaline Phosphatase 105 (46-116) IU/L Creatine Kinase 53 (26-276) U/L CK-MB (CK-2) 0.70 (0.00-4.30) ng/mL Troponin I 0.07 (0.00-0.070) ng/mL C-Reactive Protein 1.9 H (0.0-0.9) mg/dL B-Natriuretic Peptide 7 (0-100) pg/mL Total Protein 6.5 (6.4-8.2) g/dL Albumin 2.82 L (3.00-4.80) g/dL Specimen Type Urine Color (YELLOW) Urine Appearance (CLEAR) Urine pH (5.0-9.0) Ur Specific [place] (1.005-1.030) Urine Protein (NEGATIVE) mg/dL Urine Glucose (UA) (NEGATIVE) mg/dL Urine Ketones (NEGATIVE) mg/dL Urine Occult Blood (NEGATIVE) Urine Nitrite (NEGATIVE) Urine Bilirubin (NEGATIVE) Urine Urobilinogen (0.2-1.0) E.U./dL Ur Leukocyte Esterase (NEGATIVE) Urine RBC (0-5) /HPF Urine WBC (0-5) /HPF Ur Epithelial Cells /LPF Urine Bacteria (NONE TO FEW) /HPF 12/13/18 Range/Units 17:02 WBC (5.00-10.00) 10^3/uL RBC (4.50-6.00) 10^6/uL Hgb (13.0-17.0) g/dL Hct (40.0-52.0) % MCV (82.0-92.0) fL MCH (27.0-31.0) pg MCHC (32.0-36.0) g/dL RDW (11.5-14.5) % Plt Count (150-400) 10^3/uL MPV (7.4-10.4) fL Immature Gran % (Auto) (0.0-5.0) % Neut % (Auto) (50.0-70.0) % Lymph % (Auto) (20.0-40.0) % [place] % (Auto) (2.0-8.0) % Eos % (Auto) (1.0-3.0) % Baso % (Auto) (0.0-1.0) % Immature Gran # (Auto) (0.00-0.50) 10^3/uL Neut # (Auto) (2.50-7.00) 10^3/uL Lymph # (Auto) (1.00-4.00) 10^3/uL [place] # (Auto) (0.10-0.80) 10^3/uL Eos # (Auto) (0.10-0.30) 10^3/uL Baso # (Auto) (0.00-0.10) 10^3/uL PT (8.9-11.4) SEC INR (0.9-1.1) Sodium (136-145) mmol/L Potassium (3.3-5.3) mmol/L Chloride (98-115) mmol/L Carbon Dioxide (21.0-32.0) mmol/L Anion Gap (5-15) mmol/L BUN (6-25) mg/dL Creatinine (0.51-1.17) mg/dL Est Cr Clr Drug Dosing mL/min Estimated GFR (MDRD) mL/min Glucose (75 - 99) mg/dL Calcium (8.7-10.3) mg/dL Total Bilirubin (0.2-1.0) mg/dL AST (15-37) U/L ALT (12-78) U/L Alkaline Phosphatase (46-116) IU/L Creatine Kinase (26-276) U/L CK-MB (CK-2) (0.00-4.30) ng/mL Troponin I (0.00-0.070) ng/mL C-Reactive Protein (0.0-0.9) mg/dL B-Natriuretic Peptide (0-100) pg/mL Total Protein (6.4-8.2) g/dL Albumin (3.00-4.80) g/dL Specimen Type Urincath Urine Color Brown H (YELLOW) Urine Appearance Turbid H (CLEAR) Urine pH 6.0 (5.0-9.0) Ur Specific [place] 1.025 (1.005-1.030) Urine Protein 100 H (NEGATIVE) mg/dL Urine Glucose (UA) Negative (NEGATIVE) mg/dL Urine Ketones Negative (NEGATIVE) mg/dL Urine Occult Blood Large H (NEGATIVE) Urine Nitrite Negative (NEGATIVE) Urine Bilirubin Small H (NEGATIVE) Urine Urobilinogen 1.0 (0.2-1.0) E.U./dL Ur Leukocyte Esterase Small H (NEGATIVE) Urine RBC >100 H (0-5) /HPF Urine WBC 75-100 H (0-5) /HPF Ur Epithelial Cells Rare /LPF Urine Bacteria Moderate H (NONE TO FEW) /HPF Meds: Medications Generic Name Dose Route Start Last Admin Trade Name Freq PRN Reason Stop Dose Admin Acetaminophen 650 mg 12/13/18 21:01 Tylenol Arthritis Pain PO 0800,1800 PRN Pain Acetaminophen 650 mg 12/13/18 21:01 Tylenol Arthritis Pain PO Q8HR PRN Pain Albuterol/Ipratropium 3 ml 12/13/18 21:12 Duoneb 3.0-0.5 Mg/3 Ml NEB Q6HRRT PRN Shortness of Breath Allopurinol 300 mg 12/14/18 09:00 12/14/18 08:06 Zyloprim PO 300 mg DAILY [facility] Administration Atorvastatin Calcium 40 mg 12/14/18 21:00 Lipitor PO BEDTIME [facility] Buspirone HCl 10 mg 12/14/18 08:00 12/14/18 08:05 Buspar PO 10 mg BID@0800,2000 [facility] Administration Chlordiazepoxide HCl 10 mg 12/14/18 08:00 12/14/18 08:07 Librium PO 10 mg 0800,1800 [facility] Administration Esomeprazole Magnesium 40 mg 12/14/18 07:30 Nexium PO 0730 [facility] Furosemide 20 mg 12/14/18 09:00 Lasix PO DAILY [facility] Lisinopril 20 mg 12/14/18 09:00 12/14/18 08:09 Prinivil PO 20 mg DAILY [facility] Administration Metformin HCl 1,000 mg 12/14/18 08:00 12/14/18 08:05 Glucophage PO 1,000 mg BID@0800,1800 [facility] Administration Neomycin/Polymyxin/Bacitracin 0 gm 12/14/18 09:00 12/14/18 08:08 Triple Antibiotic Oint TOP 1 applic DAILY [facility] Administration Nitrofurantoin Macrocrystals 100 mg 12/14/18 09:00 12/14/18 08:06 Macrobid PO 100 mg BID [facility] Administration Non-Formulary Medication 1 spray 12/13/18 21:01 * Zinc Oxide 10% TOP BID PRN redness to buttocks scrotum gr Nystatin 0.25 gm 12/13/18 21:00 12/13/18 20:17 Nystatin Ointment TOP 1 applic QID [facility] Administration Risperidone 0.25 mg 12/14/18 20:00 Risperidal PO 2000 [facility] Tamsulosin HCl 0.4 mg 12/14/18 09:00 12/14/18 08:07 Flomax PO 0.4 mg 0900 [facility] Administration Terazosin HCl 5 mg 12/14/18 09:00 12/14/18 08:09 Hytrin PO 5 mg 0900 [facility] Administration Tramadol HCl 50 mg 12/13/18 21:01 Ultram PO BEDTIME PRN knee pain Warfarin Sodium 5 mg 12/14/18 18:00 Coumadin PO Fr@1800 [facility] Warfarin Sodium 7.5 mg 12/15/18 18:00 Coumadin PO SuMoTuWeThSa@1800 [facility] Warfarin Sodium 1 dose 12/14/18 08:45 Pharmacy To Dose - Warfarin .XX ASDIRECTED [facility] Discontinued Medications Generic Name Dose Route Start Last Admin Trade Name Freq PRN Reason Stop Dose Admin Furosemide 40 mg 12/13/18 21:15 12/13/18 22:22 Lasix IVPUSH 12/13/18 21:16 40 mg NOW ONE Administration Lidocaine HCl Confirm 12/13/18 16:40 12/13/18 20:16 Xylocaine 2% Jelly Administered 12/13/18 16:41 Not Given Dose 5 ml .ROUTE .STK-MED ONE Lidocaine HCl 5 ml 12/13/18 16:40 12/13/18 16:40 Xylocaine 2% Jelly TOP 12/13/18 16:41 5 ml ONETIME ONE Administration - Radiology Interpretation Free Text/Narrative:: Chest one view cardiomegaly with atelectasis and small effusion. CT Results Date: 12/13/18 (see report for multiple findings.) CT Results Time: 18:10 - Re-Assessments/Exams Free Text/Narrative Re-Assessment/Exam: 12/13/18 19:42 Discussed the need for CT as lab values do not correlate with CHF nor ME as fluid is seemingly outside the lung with decreased lung expansion. Continued increase in weight as well as edema to legs despite diuretic adjustment. Asbestos exposure had not been previously acknowledged to any provider that he remembers. Departure - Departure Time of Disposition: 20:35 Disposition: Refer to Observation Condition: Fair Clinical Impression: Fungal rash of trunk, Hypoxemia requiring supplemental oxygen Anemia Qualifiers: Anemia type: unspecified type Qualified Code(s): D64.9 - Anemia, unspecified Ascites Qualifiers: Ascites type: other type Qualified Code(s): R18.8 - Other ascites - Discharge Information *PRESCRIPTION DRUG MONITORING PROGRAM REVIEWED*: Not Applicable *COPY OF PRESCRIPTION DRUG MONITORING REPORT IN PATIENT ADARSH: Not Applicable ED Communication - Discussed Case With (1) Discussed Case With (1): Outpatient Provider Person/s Notified (1): Willi Funez Date: 12/13/18 Time Called: 18:55 - Problem List & Annotations (1) Edema SNOMED Code(s): 995370925, 228519790 Code(s): R60.9 - EDEMA, UNSPECIFIED Status: Chronic Priority: High Current Visit: Yes Qualifiers: Edema type: unspecified Qualified Code(s): R60.9 - Edema, unspecified (2) Chronic a-fib SNOMED Code(s): 535611292 Code(s): I48.2 - CHRONIC ATRIAL FIBRILLATION Status: Chronic Priority: Medium Current Visit: Yes (3) Anemia SNOMED Code(s): 886168958 Code(s): D64.9 - ANEMIA, UNSPECIFIED Status: Acute Priority: Medium Current Visit: Yes Qualifiers: Anemia type: unspecified type Qualified Code(s): D64.9 - Anemia, unspecified (4) Fungal rash of trunk SNOMED Code(s): 33479539 Code(s): B36.9 - SUPERFICIAL MYCOSIS, UNSPECIFIED Status: Acute Current Visit: Yes (5) Ecchymosis SNOMED Code(s): 756965249 Code(s): R58 - HEMORRHAGE, NOT ELSEWHERE CLASSIFIED Status: Acute Priority: Medium Current Visit: Yes (6) Ascites SNOMED Code(s): 082280187 Code(s): R18.8 - OTHER ASCITES Status: Acute Priority: High Current Visit: Yes Qualifiers: Ascites type: other type Qualified Code(s): R18.8 - Other ascites (7) Atelectasis of both lungs SNOMED Code(s): 10290573 Code(s): J98.11 - ATELECTASIS Status: Chronic Priority: High Current Visit: Yes (8) Thyroid mass of unclear etiology SNOMED Code(s): 813997686 Code(s): E07.89 - OTHER SPECIFIED DISORDERS OF THYROID Status: Acute Priority: Medium Current Visit: Yes (9) Splenomegaly SNOMED Code(s): 71280729 Code(s): R16.1 - SPLENOMEGALY, NOT ELSEWHERE CLASSIFIED Status: Acute Priority: High Current Visit: Yes (10) History of asbestos exposure SNOMED Code(s): 650560954 Code(s): Z77.090 - CONTACT WITH AND (SUSPECTED) EXPOSURE TO ASBESTOS Status : Chronic Priority: High Current Visit: Yes Annotation/Comment:: 1957 to [employer]. (11) Hematuria SNOMED Code(s): 86588601 Code(s): R31.9 - HEMATURIA, UNSPECIFIED Status: Chronic Priority: Medium Current Visit: Yes - Problem List Review Problem List Initiated/Reviewed/Updated: Yes - My Orders Last 24 Hours: My Active Orders 12/13/18 15:20 EKG 12 Lead [EK] Routine 12/13/18 15:22 Urinary Catheter Assessment [RC] 0912/13/18 15:30 Insert Mooney Catheter [Insert Urinary Catheter] [OM.PC] Q24H 12/13/18 21:00 Nystatin [Nystatin Ointment] 0.25 gm TOP QID - Assessment/Plan Last 24 Hours: My Active Orders 12/13/18 15:20 EKG 12 Lead [EK] Routine 12/13/18 15:22 Urinary Catheter Assessment [RC] 09,209912/13/18 15:30 Insert Mooney Catheter [Insert Urinary Catheter] [OM.PC] Q24H 12/13/18 21:00 Nystatin [Nystatin Ointment] 0.25 gm TOP QID Plan: admission for [place]
--- NOTE | 2018-12-13 16:07 | CR ---
[id number] RAD/RAD Chest PA or AP 1V EXAM: RAD Chest PA or AP 1V INDICATION: FLUID RETENTION. COMPARISON: In December 10, 2018. DISCUSSION: Cardiomegaly and central vascular congestion. Low lung volumes bilaterally with effusions and parenchymal atelectasis. Change in appearance of the right cardiac silhouette suggests underlying right middle lobe atelectasis. IMPRESSION: Low lung volumes with sequela of fluid retention in the chest. Bibasal atelectasis, including possible right middle lobe atelectasis not seen previously. Carlos Swenson MD 12/13/18 2903 Thank you for allowing us to participate in the care of your patient.
[2018-12-13 16:25] LABS: CHLORIDE,CL 112 mmol/L (98-115); SODIUM,NA 148 mmol/L (136-145)
[2018-12-13] MEDS ORDERED: Lidocaine 2% Jelly 5 ML Tube TOP ONE (16:40)
[2018-12-13] MEDS: Lidocaine 2% Jelly 5 ML Tube ONE ×2 (17:00→20:16)
--- NOTE | 2018-12-13 18:16 | CT ---
[id number] CT/CT Chest WO IV EXAM: CT Chest WO IV CLINICAL DATA: ATELECTASIS EFFUSIONS. COMPARISON: Multiple priors, most recent is a chest radiograph from today. FINDINGS: LUNGS: As seen on radiograph from today, there is mild amount of fluid retention the chest, with small bilateral effusions right greater than left. Additionally, there is bibasal right greater than left parenchymal opacities, also seen on the prior examination. Findings include subsegmental atelectasis in the lower and middle lobes on the right. This accounts for appearance on radiograph. Some of this right lung base parenchymal opacification is somewhat nodular in appearance, which is nonspecific but could represent superimposed pneumonia if there are signs of infection. In the absence of infection clinically, this is likely atelectasis as well. Remainder of the lung parenchyma is unremarkable. HEART AND GREAT VESSELS: Cardiomegaly and central vascular congestion, as seen on radiograph from today. MEDIASTINUM AND LYMPHATICS: No mediastinal or hilar lymphadenopathy. Incidentally noted is a 43 x 31 x 49 mm mass arising from the right thyroid lobe. Diffuse circumferential esophageal wall thickening, most prominent in its distal aspect extending to the gastroesophageal junction. UPPER ABDOMINAL ORGANS: Mild amount of ascites in the upper abdomen. Splenomegaly. BONES: Scattered changes of spondylosis in the spine. No fracture or osseous lesion. IMPRESSION: Sequela of fluid retention the chest, as seen on radiograph from today. In addition, there is right greater than left bibasal atelectasis. Appearance is consistent with subsegmental/compressive atelectasis. Correlate for signs of infection, as some of this right lung base parenchymal opacification is somewhat nodular in appearance, which is not typical of atelectasis. Fluid retention in the soft tissues and abdomen as well, as there is ascites. In addition there is splenomegaly. Correlate with LFTs to exclude underlying hepatocellular process as well. Right thyroid mass. Consider dedicated thyroid ultrasound to better characterize this at [facility]. Carlos Swenson MD 12/13/18 1810 Thank you for allowing us to participate in the care of your patient.
[2018-12-13] MEDS: Nystatin Ointment 15 GM Tube TOP SCH (20:17)
[2018-12-13] MEDS ORDERED: ZINC OXIDE 10% TOP PRN (21:01)
[2018-12-13] MEDS ORDERED: Acetaminophen 650 MG Tab.ER PO PRN (21:01)
[2018-12-13] MEDS ORDERED: Albuterol/Ipratropium 3.0-0.5 MG/3 ML Neb Soln NEB PRN (21:12)
[2018-12-13] MEDS ORDERED: Furosemide 40 MG/4 ML VIAL IVPUSH ONE (21:15)
[2018-12-14] MEDS ORDERED: Esomeprazole 40 MG Cap PO SCH (07:30)
[2018-12-14] MEDS: busPIRone 10 MG Tab PO SCH ×2 (08:05→19:13)
[2018-12-14] MEDS: metFORMIN 500 MG Tab PO SCH ×2 (08:05→19:13)
[2018-12-14] MEDS: Nitrofurantoin Monohydrate/Macrocrystalline 100 MG Cap PO SCH ×2 (08:06→20:42)
[2018-12-14] MEDS: Allopurinol 100 MG Tab PO SCH (08:06)
[2018-12-14] MEDS: Tamsulosin 0.4 MG Cap.ER PO SCH (08:07)
[2018-12-14] MEDS: chlordiazePOXIDE 10 MG Cap PO SCH ×2 (08:07→19:13)
[2018-12-14] MEDS: Bacitracin/Neomycin/Polymyxin B Oint 28.4 GM Tube TOP SCH (08:08)
[2018-12-14] MEDS: Lisinopril 20 MG Tab PO SCH (08:09)
[2018-12-14] MEDS: Terazosin 5 MG Cap PO SCH (08:09)
[2018-12-14 08:18] LABS: ANION GAP 2.4 mmol/L (5-15); CHLORIDE,CL 111 mmol/L (98-115); SODIUM,NA 142 mmol/L (136-145)
[2018-12-14] MEDS ORDERED: Furosemide 20 MG Tab PO SCH (09:00)
[2018-12-14] MEDS: Acetaminophen 650 MG Tab.ER PO PRN (09:37)
[2018-12-14] MEDS: Nystatin Ointment 15 GM Tube TOP SCH ×4 (09:38→20:42)
--- NOTE | 2018-12-14 11:55 | PCM.HP ---
H&P History of Present Illness - General Date of Service: 12/14/18 Admit Problem/Dx: Admission Diagnosis/Problem Admission Diagnosis/Problem Pulmonary congestion Source of Information: Patient, [facility] Records, Old Records History Limitations: Reports: No Limitations - History of Present Illness Initial Comments - Free Text/Narative: This is an 78 year old male who presented to the ED yesterday after being evaluated on [facility]. Initially the patient declined to be evaluated in the ER, but then agreed several hours later. There were concerns of increased edema to both legs and worsening respiratory status that was requiring supplemental oxygen. Patient had been seen in the ER on 12/06/18 and 12/10/18 due to falls at the [facility]. With the presentation to the ER on it was noted by EMS that his heart rate was 30 and BP was 81/20. He was reportedly given a liter of fluid with improvement in orientation status as well as heart rate and blood pressure. He was [facility] back to the [facility] at that time. Patient had work-up in the ED and was subsequently admitted for further work-up and monitoring of his condition. - Related Data Allergies/Adverse Reactions: Allergies Allergy/AdvReac Type Severity Reaction Status Date / Time omeprazole magnesium Allergy Intermediate Cannot Verified 12/13/18 15:15 [From Prilosec] Remember cimetidine [From Tagamet] Allergy Rash Verified 12/13/18 15:15 cimetidine HCl [From Tagamet] Allergy Rash Verified 12/13/18 15:15 codeine Allergy Hallucinati Verified 12/13/18 15:15 ons omeprazole [From Prilosec] Allergy Cannot Verified 12/13/18 15:15 Remember Home Medications: Home Meds busPIRone [Buspar] 10 mg PO 0800,2000 08/16/17 [History] chlordiazePOXIDE [Librium] 10 mg PO 0800,1800 08/16/17 [History] Acetaminophen [Tylenol Arthritis] 650 mg PO 0800,1800 PRN 01/28/18 [History] Allopurinol [Zyloprim] 300 mg PO DAILY 01/29/18 [History] Esomeprazole [NexIUM] 40 mg PO 0730 01/29/18 [History] metFORMIN HCl [Metformin HCl] 1,000 mg PO 0800,1800 01/29/18 [History] Tamsulosin [Flomax] 0.4 mg PO 0900 09/20/18 [History] Terazosin [Hytrin] 5 mg PO 0900 09/20/18 [History] atorvaSTATin [Lipitor] 40 mg PO BEDTIME 09/20/18 [History] Lisinopril 20 mg PO DAILY #30 tab 09/23/18 [Rx] Warfarin [Coumadin] 7.5 mg PO SUMOTUWETHSA 12/06/18 [History] Furosemide [Lasix] 20 mg PO DAILY 12/10/18 [History] risperiDONE 0.25 mg PO 199912/10/18 [History] * Zinc Oxide 10% 1 spray TOP BID PRN 12/13/18 [History] Acetaminophen [Tylenol Arthritis Pain] 650 mg PO Q8HR PRN 12/13/18 [History] Bacitracin/Neomycin/Polymyxin [Neosporin Oint] 1 applic TOP DAILY 12/13/18 [ History] Nitrofurantoin Howard/Macrocryst [Nitrofurantoin Howard-MCR] 100 mg PO BID 12/13/18 [History] Warfarin [Coumadin] 5 mg PO FR 12/13/18 [History] traMADol HCl [Tramadol HCl] 50 mg PO BEDTIME PRN 12/13/18 [History] Past Medical History HEENT History: Reports: Cataract, Hard of Hearing, Impaired Vision Cardiovascular History: Reports: Afib, Heart Failure, High Cholesterol, Hypertension, [place] Respiratory History: Reports: Pneumonia, Recurrent, Other (See Below) ([employer] exposre likely. 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) Gastrointestinal History: Reports: Chronic Constipation, GERD, Hemorrhoids Genitourinary History: Reports: BPH Musculoskeletal History: Reports: Arthritis, Back Pain, Chronic Other Musculoskeletal History: chronic knee pain Neurological History: Reports: TIA Other Neuro History: this admit Psychiatric History: Reports: Anxiety, Dementia, Depression, Mood Swings Endocrine/Metabolic History: Reports: Diabetes, Type II, Obesity/BMI 30+ Hematologic History: Reports: None Immunologic History: Reports: None Oncologic (Cancer) History: Reports: None Dermatologic History: Reports: Other (See Below) Other Dermatologic History: scattered scabs, picks/scratches at skin - Infectious Disease History Infectious Disease History: Reports: Measles - Past Surgical History HEENT Surgical History: Reports: Cataract Surgery, Oral Surgery Respiratory Surgical History: Reports: None GI Surgical History: Reports: Cholecystectomy, Colonoscopy, EGD, Hernia, Abdominal Oncologic Surgical History: Reports: None Dermatological Surgical History: Reports: None Social & Family History - Family History HEENT: Reports: None Cardiac: Reports: Hypertension, [place] Respiratory: Reports: None GI: Reports: None : Reports: None OBGYN: Reports: None Musculoskeletal: Reports: None Neurological: Reports: None Psychiatric: Reports: None Endocrine/Metabolic: Reports: None Hematologic: Reports: None Immunologic: Reports: None Dermatologic: Reports: None Oncologic: Reports: Prostate - Tobacco Use Smoking Status *Q: Former Smoker Used Tobacco, but Quit: Yes Month/Year Tobacco Last Used: 1979 Second Hand Smoke Exposure: No - Caffeine Use Caffeine Use: Reports: Coffee - Alcohol Use Date of Last Drink: 09/11/79 - Recreational Drug Use Recreational Drug Use: No - Living Situation & Occupation Living situation: Reports: (he has dementia with self care deficit. His provides cares for him at home. Wanting NH placement) Occupation: Retired H&P Review of Systems - Review of Systems: Review Of Systems: See Below General: Reports: Weakness, Fatigue. Denies: Fever, Chills, Decreased Appetite HEENT: Reports: Glasses. Denies: Ear Pain, Headaches, Sinus Congestion, Sore Throat Pulmonary: Reports: Cough. Denies: Shortness of Breath, Sputum Cardiovascular: Reports: Edema. Denies: Chest Pain Gastrointestinal: Denies: Abdominal Pain, Constipation, Diarrhea, Nausea, Vomiting Genitourinary: Reports: No Symptoms Skin: Reports: Bruising (from falls) Neurological: Denies: Dizziness, Headache Exam - Exam Exam: See Below - Vital Signs Vital Signs: Last Vital Signs Temp 98.5 F 12/14/18 07:00 Pulse 50 L 12/14/18 07:00 Resp 32 H 12/14/18 07:00 BP 130/76 12/14/18 08:09 Pulse Ox 93 L 12/14/18 09:31 Weight: 336 lb - Exam Quality Assessment: Supplemental Oxygen (2.5 liters per nasal cannula 91%), Urinary Catheter (dark brown with red sediment present), DVT Prophylaxis (On warfarin) General: Alert, Oriented, Cooperative, Mild Distress. No: Lethargic, Obtunded HEENT: Conjunctiva Clear, Hearing Intact, Mucosa Moist & [place], Posterior Pharynx Clear, Pupils Equal, Pupils Reactive, TMs Clear, Glasses Neck: Supple, Trachea Midline. No: JVD Lungs: Decreased Breath Sounds (throughout), Other (Mildly labored respiratory effort with intercostal retractions noted). No: Crackles, Rhonchi, Wheezing Cardiovascular: Normal S1, Normal S2, Irregular Rhythm, Bradycardia GI/Abdominal Exam: Normal Bowel Sounds, No Organomegaly, Tender (RUQ), Other ( large, round, firm) Extremities: Other (1+ edema to BLE) Skin: Warm, Dry Neurological: Normal Speech Neuro Extensive - Mental Status: Alert, Oriented x3, Normal Mood/Affect, Normal Cognition Psychiatric: Alert, Normal Affect, Normal Mood. No: Anxious, Agitated - Patient Data Lab Results Last 24 hrs: Laboratory Results - last 24 hr 12/13/18 12/13/18 12/13/18 Range/Units 15:40 15:40 15:40 WBC 6.10 (5.00-10.00) 10^3/uL RBC 4.05 L (4.50-6.00) 10^6/uL Hgb 11.7 L (13.0-17.0) g/dL Hct 38.6 L (40.0-52.0) % MCV 95.3 H (82.0-92.0) fL MCH 28.9 (27.0-31.0) pg MCHC 30.3 L (32.0-36.0) g/dL RDW 15.0 H (11.5-14.5) % Plt Count 139 L (150-400) 10^3/uL MPV 10.2 (7.4-10.4) fL Immature Gran % (Auto) 0.2 (0.0-5.0) % Neut % (Auto) 67.2 (50.0-70.0) % Lymph % (Auto) 20.0 (20.0-40.0) % [place] % (Auto) 9.2 H (2.0-8.0) % Eos % (Auto) 3.1 H (1.0-3.0) % Baso % (Auto) 0.3 (0.0-1.0) % Immature Gran # (Auto) 0.01 (0.00-0.50) 10^3/uL Neut # (Auto) 4.10 (2.50-7.00) 10^3/uL Lymph # (Auto) 1.22 (1.00-4.00) 10^3/uL Howard # (Auto) 0.56 (0.10-0.80) 10^3/uL Eos # (Auto) 0.19 (0.10-0.30) 10^3/uL Baso # (Auto) 0.02 (0.00-0.10) 10^3/uL PT 29.0 H D (8.9-11.4) SEC INR 2.9 H (0.9-1.1) Sodium 148 H (136-145) mmol/L Potassium 3.6 (3.3-5.3) mmol/L Chloride 112 (98-115) mmol/L Carbon Dioxide 27.6 (21.0-32.0) mmol/L Anion Gap 12.0 (5-15) mmol/L BUN 21 (6-25) mg/dL Creatinine 1.00 (0.51-1.17) mg/dL Est Cr Clr Drug Dosing 64.67 mL/min Estimated GFR (MDRD) > 60 mL/min Glucose 125 H (75 - 99) mg/dL POC Glucose (74-106) mg/dl Calcium 8.1 L (8.7-10.3) mg/dL Total Bilirubin 0.8 (0.2-1.0) mg/dL AST 63 H (15-37) U/L ALT 24 (12-78) U/L Alkaline Phosphatase 105 (46-116) IU/L Creatine Kinase 53 (26-276) U/L CK-MB (CK-2) 0.70 (0.00-4.30) ng/mL Troponin I 0.07 (0.00-0.070) ng/mL C-Reactive Protein 1.9 H (0.0-0.9) mg/dL B-Natriuretic Peptide 7 (0-100) pg/mL Total Protein 6.5 (6.4-8.2) g/dL Albumin 2.82 L (3.00-4.80) g/dL Specimen Type Urine Color (YELLOW) Urine Appearance (CLEAR) Urine pH (5.0-9.0) Ur Specific [place] (1.005-1.030) Urine Protein (NEGATIVE) mg/dL Urine Glucose (UA) (NEGATIVE) mg/dL Urine Ketones (NEGATIVE) mg/dL Urine Occult Blood (NEGATIVE) Urine Nitrite (NEGATIVE) Urine Bilirubin (NEGATIVE) Urine Urobilinogen (0.2-1.0) E.U./dL Ur Leukocyte Esterase (NEGATIVE) Urine RBC (0-5) /HPF Urine WBC (0-5) /HPF Ur Epithelial Cells /LPF Urine Bacteria (NONE TO FEW) /HPF 12/13/18 12/14/18 12/14/18 Range/Units 17:02 07:45 07:45 WBC 6.16 (5.00-10.00) 10^3/uL RBC 3.97 L (4.50-6.00) 10^6/uL Hgb 11.7 L (13.0-17.0) g/dL Hct 38.0 L (40.0-52.0) % MCV 95.7 H (82.0-92.0) fL MCH 29.5 (27.0-31.0) pg MCHC 30.8 L (32.0-36.0) g/dL RDW 15.0 H (11.5-14.5) % Plt Count 139 L (150-400) 10^3/uL MPV 10.5 H (7.4-10.4) fL Immature Gran % (Auto) 0.2 (0.0-5.0) % Neut % (Auto) 71.1 H (50.0-70.0) % Lymph % (Auto) 16.4 L (20.0-40.0) % Howard % (Auto) 10.1 H (2.0-8.0) % Eos % (Auto) 1.9 (1.0-3.0) % Baso % (Auto) 0.3 (0.0-1.0) % Immature Gran # (Auto) 0.01 (0.00-0.50) 10^3/uL Neut # (Auto) 4.38 (2.50-7.00) 10^3/uL Lymph # (Auto) 1.01 (1.00-4.00) 10^3/uL Howard # (Auto) 0.62 (0.10-0.80) 10^3/uL Eos # (Auto) 0.12 (0.10-0.30) 10^3/uL Baso # (Auto) 0.02 (0.00-0.10) 10^3/uL PT (8.9-11.4) SEC INR (0.9-1.1) Sodium 142 (136-145) mmol/L Potassium 3.5 (3.3-5.3) mmol/L Chloride 111 (98-115) mmol/L Carbon Dioxide 32.1 H (21.0-32.0) mmol/L Anion Gap 2.4 L (5-15) mmol/L BUN 20 (6-25) mg/dL Creatinine 0.97 (0.51-1.17) mg/dL Est Cr Clr Drug Dosing 66.67 mL/min Estimated GFR (MDRD) > 60 mL/min Glucose 150 H (75 - 99) mg/dL POC Glucose (74-106) mg/dl Calcium 8.2 L (8.7-10.3) mg/dL Total Bilirubin 1.0 (0.2-1.0) mg/dL AST 46 H (15-37) U/L ALT 22 (12-78) U/L Alkaline Phosphatase 92 (46-116) IU/L Creatine Kinase (26-276) U/L CK-MB (CK-2) (0.00-4.30) ng/mL Troponin I (0.00-0.070) ng/mL C-Reactive Protein (0.0-0.9) mg/dL B-Natriuretic Peptide (0-100) pg/mL Total Protein 6.4 (6.4-8.2) g/dL Albumin 2.73 L (3.00-4.80) g/dL Specimen Type Urincath Urine Color Brown H (YELLOW) Urine Appearance Turbid H (CLEAR) Urine pH 6.0 (5.0-9.0) Ur Specific [place] 1.025 (1.005-1.030) Urine Protein 100 H (NEGATIVE) mg/dL Urine Glucose (UA) Negative (NEGATIVE) mg/dL Urine Ketones Negative (NEGATIVE) mg/dL Urine Occult Blood Large H (NEGATIVE) Urine Nitrite Negative (NEGATIVE) Urine Bilirubin Small H (NEGATIVE) Urine Urobilinogen 1.0 (0.2-1.0) E.U./dL Ur Leukocyte Esterase Small H (NEGATIVE) Urine RBC >100 H (0-5) /HPF Urine WBC 75-100 H (0-5) /HPF Ur Epithelial Cells Rare /LPF Urine Bacteria Moderate H (NONE TO FEW) /HPF 12/14/18 12/14/18 Range/Units 07:45 08:05 WBC (5.00-10.00) 10^3/uL RBC (4.50-6.00) 10^6/uL Hgb (13.0-17.0) g/dL Hct (40.0-52.0) % MCV (82.0-92.0) fL MCH (27.0-31.0) pg MCHC (32.0-36.0) g/dL RDW (11.5-14.5) % Plt Count (150-400) 10^3/uL MPV (7.4-10.4) fL Immature Gran % (Auto) (0.0-5.0) % Neut % (Auto) (50.0-70.0) % Lymph % (Auto) (20.0-40.0) % Howard % (Auto) (2.0-8.0) % Eos % (Auto) (1.0-3.0) % Baso % (Auto) (0.0-1.0) % Immature Gran # (Auto) (0.00-0.50) 10^3/uL Neut # (Auto) (2.50-7.00) 10^3/uL Lymph # (Auto) (1.00-4.00) 10^3/uL Howard # (Auto) (0.10-0.80) 10^3/uL Eos # (Auto) (0.10-0.30) 10^3/uL Baso # (Auto) (0.00-0.10) 10^3/uL PT (8.9-11.4) SEC INR (0.9-1.1) Sodium (136-145) mmol/L Potassium (3.3-5.3) mmol/L Chloride (98-115) mmol/L Carbon Dioxide (21.0-32.0) mmol/L Anion Gap (5-15) mmol/L BUN (6-25) mg/dL Creatinine (0.51-1.17) mg/dL Est Cr Clr Drug Dosing mL/min Estimated GFR (MDRD) mL/min Glucose (75 - 99) mg/dL POC Glucose 150 H (74-106) mg/dl Calcium (8.7-10.3) mg/dL Total Bilirubin (0.2-1.0) mg/dL AST (15-37) U/L ALT (12-78) U/L Alkaline Phosphatase (46-116) IU/L Creatine Kinase (26-276) U/L CK-MB (CK-2) (0.00-4.30) ng/mL Troponin I 0.06 (0.00-0.070) ng/mL C-Reactive Protein (0.0-0.9) mg/dL B-Natriuretic Peptide (0-100) pg/mL Total Protein (6.4-8.2) g/dL Albumin (3.00-4.80) g/dL Specimen Type Urine Color (YELLOW) Urine Appearance (CLEAR) Urine pH (5.0-9.0) Ur Specific [place] (1.005-1.030) Urine Protein (NEGATIVE) mg/dL Urine Glucose (UA) (NEGATIVE) mg/dL Urine Ketones (NEGATIVE) mg/dL Urine Occult Blood (NEGATIVE) Urine Nitrite (NEGATIVE) Urine Bilirubin (NEGATIVE) Urine Urobilinogen (0.2-1.0) E.U./dL Ur Leukocyte Esterase (NEGATIVE) Urine RBC (0-5) /HPF Urine WBC (0-5) /HPF Ur Epithelial Cells /LPF Urine Bacteria (NONE TO FEW) /HPF Result Diagrams: 12/14/18 07:45 12/14/18 07:45 EKG INTERPRETATION EKG Date: 12/14/18 Time: 10:49 Rhythm: A-Flutter Rate (Beats/Min): 55 [place]: LAD-Left [place] Deviation P-Wave: Absent QRS: Wide ST-T: Normal QT: Normal Comparison: No Change Problem List Initiated/Reviewed/Updated: Yes Orders Last 24hrs: Active Orders 24 hr Category Date Time Status Admission Status [Patient Status] [ADT] Routine ADT 12/13/18 20:52 Ordered BIPAP Adult [RT BiPAP/CPAP] [RC] .PRN Care 12/13/18 21:13 Active Chest Physiotherapy [RT Chest Physiotherapy] [RC] Care 12/13/18 21:14 Active ASDIRECTED EKG Documentation Completion [RC] ASDIRECTED Care 12/14/18 10:38 Active Elevate Extremity [RC] BID Care 12/13/18 21:10 Active Insert Mooney Catheter [Insert Urinary Catheter] [OM.PC] Care 12/13/18 15:30 Ordered Q24H Intake and Output Strict [RC] 0600,1400,2200 Care 12/13/18 21:11 Active Oxygen Therapy [RC] ASDIRECTED Care 12/14/18 09:31 Active RT Aerosol Therapy [RC] .PRN Care 12/13/18 21:13 Active Telemetry Monitoring [Cardiac Monitoring] [RC] . Care 12/14/18 10:34 Active DIRECTED Urinary Catheter Assessment [RC] 0900,2100 Care 12/13/18 15:22 Active Vital Signs [RC] 0300,0700,1100,1500,1900,2300 Care 12/13/18 23:10 Active [place] [employer] Diet [DIET] Diet 12/14/18 Breakfast Active CULTURE URINE [RM] Routine Lab 12/14/18 08:48 Ordered MISCELLANEOUS CULT [MREF] Routine Lab 12/13/18 19:10 Received MISCELLANEOUS CULT [MREF] Routine Lab 12/13/18 19:15 Received * Zinc Oxide 10% Med 12/13/18 21:01 Pending 1 spray TOP BID PRN Acetaminophen [Tylenol Arthritis Pain] Med 12/13/18 21:01 Active 650 mg PO 0800,1800 PRN Acetaminophen [Tylenol Arthritis Pain] Med 12/13/18 21:01 Active 650 mg PO Q8HR PRN Albuterol/Ipratropium [DuoNeb 3.0-0.5 MG/3 ML] Med 12/13/18 21:12 Active 3 ml NEB Q6HRRT PRN Allopurinol [Zyloprim] Med 12/14/18 09:00 Active 300 mg PO DAILY Bacitracin/Neomycin/Polymyxin [Triple Antibiotic Oint] Med 12/14/18 09:00 Active 0 gm TOP DAILY Furosemide [Lasix] Med 12/14/18 09:00 Hold 20 mg PO DAILY Lisinopril [Prinivil] Med 12/14/18 09:00 Active 20 mg PO DAILY Nitrofurantoin [place]/Macrocryst [Macrobid] Med 12/14/18 09:00 Active 100 mg PO BID Nystatin [Nystatin Ointment] Med 12/13/18 21:00 Active 0.25 gm TOP QID Omeprazole Med 12/15/18 07:30 Active 40 mg PO 0730 Pharmacy to Dose - Warfarin Med 12/14/18 08:45 Pending 1 dose .XX ASDIRECTED Tamsulosin [Flomax] Med 12/14/18 09:00 Active 0.4 mg PO 0900 Terazosin [Hytrin] Med 12/14/18 09:00 Active 5 mg PO 0900 Warfarin [Coumadin] Med 12/14/18 18:00 Active 5 mg PO Fr@1800 Warfarin [Coumadin] Med 12/15/18 18:00 Active 7.5 mg PO SuMoTuWeThSa@1800 atorvaSTATin [Lipitor] Med 12/14/18 21:00 Hold 40 mg PO BEDTIME busPIRone [Buspar] Med 12/14/18 08:00 Active 10 mg PO BID@0800,2000 chlordiazePOXIDE [Librium] Med 12/14/18 08:00 Active 10 mg PO 0800,1800 metFORMIN [Glucophage] Med 12/14/18 08:00 Active 1,000 mg PO BID@0800,1800 risperiDONE [RisperiDAL] Med 12/14/18 20:00 Active 0.25 mg PO 2000 traMADol [Ultram] Med 12/13/18 21:01 Active 50 mg PO BEDTIME PRN Resuscitation Status Routine Resus Stat 12/13/18 23:10 Ordered EKG 12 Lead [EK] Routine Ther 12/14/18 10:38 Ordered Medication Orders Acetaminophen (Tylenol Arthritis Pain) 650 mg PO 0800,1800 PRN PRN Reason: Pain Last Admin: 12/14/18 09:37 Dose: 650 mg Acetaminophen (Tylenol Arthritis Pain) 650 mg PO Q8HR PRN PRN Reason: Pain Albuterol/Ipratropium (Duoneb 3.0-0.5 Mg/3 Ml) 3 ml NEB Q6HRRT PRN PRN Reason: Shortness of Breath Allopurinol (Zyloprim) 300 mg PO DAILY [facility] Last Admin: 12/14/18 08:06 Dose: 300 mg Atorvastatin Calcium (Lipitor) 40 mg PO BEDTIME TRUNG Buspirone HCl (Buspar) 10 mg PO BID@0800,2000 TRUNG Last Admin: 12/14/18 08:05 Dose: 10 mg Chlordiazepoxide HCl (Librium) 10 mg PO 0800,1800 [facility] Last Admin: 12/14/18 08:07 Dose: 10 mg Furosemide (Lasix) 20 mg PO DAILY [facility] Lisinopril (Prinivil) 20 mg PO DAILY [facility] Last Admin: 12/14/18 08:09 Dose: 20 mg Metformin HCl (Glucophage) 1,000 mg PO BID@0800,1800 [facility] Last Admin: 12/14/18 08:05 Dose: 1,000 mg Neomycin/Polymyxin/Bacitracin (Triple Antibiotic Oint) 0 gm TOP DAILY [facility] Last Admin: 12/14/18 08:08 Dose: 1 applic Nitrofurantoin Macrocrystals (Macrobid) 100 mg PO BID [facility] Last Admin: 12/14/18 08:06 Dose: 100 mg Non-Formulary Medication (* Zinc Oxide 10%) 1 spray TOP BID PRN PRN Reason: redness to buttocks scrotum gr Nystatin (Nystatin Ointment) 0.25 gm TOP QID [facility] Last Admin: 12/14/18 09:38 Dose: 1 applic Admin: 12/13/18 20:17 Dose: 1 applic Omeprazole (Omeprazole) 40 mg PO 0730 [facility] Risperidone (Risperidal) 0.25 mg PO 2000 [facility] Tamsulosin HCl (Flomax) 0.4 mg PO 0900 [facility] Last Admin: 12/14/18 08:07 Dose: 0.4 mg Terazosin HCl (Hytrin) 5 mg PO 0900 [facility] Last Admin: 12/14/18 08:09 Dose: 5 mg Tramadol HCl (Ultram) 50 mg PO BEDTIME PRN PRN Reason: knee pain Warfarin Sodium (Coumadin) 5 mg PO Fr@1800 [facility] Warfarin Sodium (Coumadin) 7.5 mg PO SuMoTuWeThSa@1800 [facility] Warfarin Sodium (Pharmacy To Dose - Warfarin) 1 dose .XX ASDIRECTED [facility] Assessment/Plan Comment:: HPI: This is an 78 year old male who presented to the ED yesterday after being evaluated on [facility] rounds. Initially the patient declined to be evaluated in the ER, but then agreed several hours later. There were concerns of increased edema to both legs and worsening respiratory status that was requiring supplemental oxygen. Patient had been seen in the ER on 12/06/18 and 12/10/18 due to falls at the [facility]. With the presentation to the ER on it was noted by EMS that his heart rate was 30 and BP was 81/20. He was reportedly given a liter of fluid with improvement in orientation status as well as heart rate and blood pressure. He was [facility] back to the [facility] at that time. Patient had work-up in the ED and was subsequently admitted for further work-up and monitoring of his condition. Pertinent ED workup: WBC 6.10 Hgb 11.7 Troponin 0.07 CRP 1.9 BNP 7 UA cath moderate bacteria INR 2.9 EKG-afib CXR-low lung volumes with fluid retention; bibasal atelectasis with possible right middle lobe atelectasis CT Chest-Bibasal atelectasis R>L; right lung base parenchymal opacification- correlate for signs of infection; fluid retention in soft tissues and ascites; splenomegaly; right thyroid mass-consider thyroid US. Further work-up upon arrival to the floor: Telemetry Troponin Medication reconciliation Urine culture Primary assessment/plan: Dyspnea, question etiology at this time. Continue oxygen to keep sats >90%. DuoNebs PRN. Rule out pneumonia. Repeat CBC in AM. Rule out arrhythmia. Telemetry ordered. Troponin 0.06. Repeat EKG showing atrial flutter with bradycardia. Peripheral edema, chronic, improved. Continue with carmen wraps to the legs. No further lasix today as notable improvement in edema but no change in respiratory status. Hold oral lasix. Abdominal ascites. Asymptomatic bacteruria. Urine culture pending. Previously on macrobid so will contiue the same. Mooney catheter in place. Elevated AST. Improved to 46. Decrease lipitor to 20 mg daily. LDL 61 (November 2017). Hypoalbuminemia. 2.73. Low hemoglobin. Hgb 11.7, however baseline around 12.7. No active signs of bleeding. May consider anemia work-up. Thyroid nodule. US (2014) noted multiple nodules to both lobes. Pathology report noted atypical follicular lesion of undetermined significance. TSH 4.67 at that time. No further follow-up since. Will obtain TSH and free T4 level. Secondary assessment/plan: HTN. Continue lisinopril. History of TIAs. Atrial flutter, chronic. On warfarin. Pharmacy to dose. HFpEF. Holding oral lasix. Hyperglyceridemia. Decreasing lipitor dose as above. T2DM. Continue metformin. Glucose 150 this AM. Recent A1c 6.1. Morbid obesity. Dementia. Continue risperidone and librium. Anxiety. Continue buspar. GERD. Continue omeprazole. BPH without symptoms. Continue flomax and hytrin. Osteoarthritis. Continue tramadol PRN. Gouty arthropathy. Continue allopurinol. Chronic bilateral knee pain. History of recent falls. DVT prophylaxis. On warfarin. INR therapeutic. Overall plan: Repeat labs in the AM. Continue monitoring for any new or changing symptoms. May need to consider further work-up of abdominal ascites as a reason for dyspnea.
[2018-12-14] MEDS ORDERED: Warfarin 5 MG Tab PO SCH (18:00)
[2018-12-14] MEDS: Iopamidol 755 Mg/ML 100 ML Bottle IV ONE ×2 (18:32→19:00)
[2018-12-14] MEDS: risperiDONE 0.25 MG Tab PO SCH (19:13)
[2018-12-14] MEDS: Phenazopyridine 100 MG Tab PO SCH ×2 (19:13→20:41)
--- NOTE | 2018-12-14 19:39 | CT ---
[id number] CT/CT Abdomen Pelvis W IV EXAM: CT Abdomen Pelvis W IV CLINICAL DATA: ASCITES COMPARISON STUDY: October 05, 2017. FINDINGS: Small right and trace left pleural effusions with near complete atelectasis of the right lower lobe. The heart is enlarged. There is nodular contour of the liver consistent with cirrhosis. The spleen is enlarged measuring up to 19.8 cm. Fatty atrophy of the pancreas. The gallbladder is not visualized and may be absent. Adrenal glands are unremarkable. Bilateral renal cortical cysts. No hydronephrosis or hydroureter. No suspicious renal lesions. There are multiple prominent mesenteric lymph nodes none of which are pathologically enlarged by CT size criteria. Mooney catheter is in place. The bladder is decompressed. Moderate volume ascites predominantly perihepatic. The portal vein is patent. No bowel obstruction or inflammation. No pneumoperitoneum. Scattered changes of spondylosis the spine. No fracture or osseous lesion. IMPRESSION: 1. Cirrhosis with sequela of portal hypertension including splenomegaly, small right and trace left pleural effusions as well as small volume ascites. 2. Mesenteric and retroperitoneal adenopathy was seen on prior studies. This is nonspecific and likely reactive in the setting of cirrhosis. Jesus Huntley DO 12/14/18 1939 Thank you for allowing us to participate in the care of your patient.
[2018-12-14] MEDS: atorvaSTATin 40 MG Tab PO SCH (20:42)
[2018-12-14] MEDS ORDERED: atorvaSTATin 40 MG Tab PO SCH (21:00)
[2018-12-14] MEDS ORDERED: Furosemide 40 MG/4 ML VIAL IVPUSH ONE (21:52)
[2018-12-15] MEDS: traMADol 50 MG Tab PO PRN (01:44)
[2018-12-15] MEDS: Omeprazole 20 MG Cap.CR PO SCH (06:32)
[2018-12-15 07:54] LABS: ANION GAP 12.4 mmol/L (5-15); CHLORIDE,CL 107 mmol/L (98-115); SODIUM,NA 146 mmol/L (136-145)
[2018-12-15] MEDS: Allopurinol 100 MG Tab PO SCH (09:09)
[2018-12-15] MEDS: busPIRone 10 MG Tab PO SCH ×2 (09:10→20:54)
[2018-12-15] MEDS: chlordiazePOXIDE 10 MG Cap PO SCH ×2 (09:10→18:27)
[2018-12-15] MEDS: Phenazopyridine 100 MG Tab PO SCH ×2 (09:10→14:06)
[2018-12-15] MEDS: Nitrofurantoin Monohydrate/Macrocrystalline 100 MG Cap PO SCH ×2 (09:10→20:54)
[2018-12-15] MEDS: Tamsulosin 0.4 MG Cap.ER PO SCH (09:10)
[2018-12-15] MEDS: metFORMIN 500 MG Tab PO SCH ×2 (09:11→18:27)
[2018-12-15] MEDS: Bacitracin/Neomycin/Polymyxin B Oint 28.4 GM Tube TOP SCH (09:11)
[2018-12-15] MEDS: Nystatin Ointment 15 GM Tube TOP SCH ×4 (09:12→20:55)
[2018-12-15] MEDS: Lisinopril 20 MG Tab PO SCH (10:27)
[2018-12-15] MEDS: Terazosin 5 MG Cap PO SCH (10:27)
[2018-12-15] MEDS: Spironolactone 25 MG Tab PO SCH (18:26)
[2018-12-15] MEDS: Warfarin 2.5 MG Tab PO SCH (18:27)
[2018-12-15] MEDS ORDERED: traZODone 50 MG Tab PO PRN (20:00)
[2018-12-15] MEDS ORDERED: Melatonin 3 MG Tab PO PRN (20:13)
--- NOTE | 2018-12-15 20:26 | PN ---
12/15/2018 PATIENT NAME: JOCELYN FORTE HISTORY OF PRESENT ILLNESS: This is an 78-year-old male patient who was admitted through the emergency room. He was admitted due to increased edema of his legs and decline in his respiratory status, which required supplementation of oxygen. He had had 2 previous emergency room visits due to falls, which occurred on 12/06/2018 and 12/10/2018. These did occur at the nursing center. He did have significant bruising as a result of those falls. It is noted that he did have a heart rate of 30 and a blood pressure of 81/20 on 12/10/2018 emergency room visit. He did improve with a liter of fluid and was sent back to the nursing center at that time. As a result of his most frequent ER visit, he was admitted for further workup, evaluation and treatment. Update on his current status as of today, he denies any pain or discomfort. He does continue to note extensive swelling of the lower extremities and ascites of the abdomen. His ADL status is declining as he is requiring assistance with all ADLs. He denies any specific pain or discomfort. He states that his appetite has been good and he has had no GI upset. REVIEW OF SYSTEMS: GENERAL: He does note that he feels weak and fatigued. He denies any fever. His appetite is improving. HEENT: Negative. RESPIRATORY: He does note shortness of breath with some intermittent cough. CARDIOVASCULAR: He denies any chest pain or palpitations. GI: His appetite has been good without nausea or vomiting. : He does have a Mooney catheter. It is reported he did remove it independently x1 and he has had this reinserted. SKIN: He has bruises from previous falls. NEUROLOGICAL: He denies any headache, dizziness, or lightheadedness. PHYSICAL EXAMINATION: VITAL SIGNS: His vital signs have been reviewed. They are stable. His heart rate remains in the 53 to 56 range. HEENT: His head is normocephalic. Conjunctiva is clear. Noted no nasal drainage. NECK: Supple without rigidity. No lymphadenopathy. RESPIRATORY: Lungs sounds are somewhat diminished throughout. He has no crackles, wheezing, or rhonchi. There is an intermittent cough. CARDIOVASCULAR: Has an irregular rhythm. ABDOMEN: large, rounded, bowel sounds present, nontender to palpation. SKIN: Note significant bruising throughout the extremities, on the chest wall and on the right side of his face from previous falls. EXTREMITIES: Significant lower extremity edema, firmness. He does have Donaldo wraps intact. No tenderness to the lower extremities to touch and to palpation. IMPRESSION AND PLAN: Transferred to inpatient care. Acute hypoxic respiratory failure with fluid overload. O2 required for stability. A CT scan was obtained noting cirrhosis of the liver with sequela of portal hypertension including splenomegaly, small right and trace left pleural effusions. Secondary diagnoses include abdominal ascites, asymptomatic bacteremia, elevated AST, low hemoglobin. Plan, we will continue with his current treatment. We are going to add melatonin 6 mg at bedtime due to concerns of insomnia. We will add spironolactone 50 mg daily. His Lasix will be changed to 20 mg IV b.i.d. We will add trazodone 25 mg as needed at bedtime for insomnia. We will obtain a BMP tomorrow and continue with INRs. Nursing will continue to monitor I's and O's and also to obtain weights if possible. Case discussed with Dr. Borrero /[id number]/MODL MTDD
[2018-12-15] MEDS: risperiDONE 0.25 MG Tab PO SCH (20:54)
[2018-12-15] MEDS: Melatonin 3 MG Tab PO SCH (20:55)
[2018-12-15] MEDS: Furosemide 40 MG/4 ML VIAL IVPUSH SCH (20:55)
[2018-12-15] MEDS: atorvaSTATin 40 MG Tab PO SCH (20:55)
[2018-12-15] MEDS ORDERED: Melatonin 3 MG Tab PO SCH ×2 (21:00)
[2018-12-16] MEDS: Acetaminophen 650 MG Tab.ER PO PRN (05:39)
[2018-12-16] MEDS ORDERED: Lidocaine 2% 100 MG/5 ML Syringe IVPUSH PRN (06:17)
[2018-12-16] MEDS ORDERED: Atropine 0.1 MG/ML 10 ML Syringe IVPUSH PRN (06:17)
[2018-12-16] MEDS ORDERED: EPINEPHrine 1:10,000 1 MG/10 ML Syringe IVPUSH PRN (06:17)
[2018-12-16] MEDS ORDERED: Nitroglycerin 0.4 MG Tab.SL SL PRN (06:17)
[2018-12-16] MEDS ORDERED: Lidocaine 2% 100 MG/5 ML Syringe IVPUSH ONE (06:30)
[2018-12-16] MEDS: Omeprazole 20 MG Cap.CR PO SCH (06:36)
[2018-12-16 08:11] LABS: ANION GAP 12.6 mmol/L (5-15)
[2018-12-16] MEDS: Furosemide 40 MG/4 ML VIAL IVPUSH SCH (08:18)
[2018-12-16] MEDS: Bacitracin/Neomycin/Polymyxin B Oint 28.4 GM Tube TOP SCH (08:18)
[2018-12-16] MEDS: Nitrofurantoin Monohydrate/Macrocrystalline 100 MG Cap PO SCH ×2 (08:19→20:06)
[2018-12-16] MEDS: chlordiazePOXIDE 10 MG Cap PO SCH ×2 (08:19→17:16)
[2018-12-16] MEDS: Spironolactone 25 MG Tab PO SCH (08:19)
[2018-12-16] MEDS: traMADol 50 MG Tab PO PRN (08:19)
[2018-12-16] MEDS: busPIRone 10 MG Tab PO SCH ×2 (08:19→20:06)
[2018-12-16] MEDS: Tamsulosin 0.4 MG Cap.ER PO SCH (08:20)
[2018-12-16] MEDS: Nystatin Ointment 15 GM Tube TOP SCH ×4 (08:20→20:06)
[2018-12-16] MEDS: Allopurinol 100 MG Tab PO SCH (08:20)
[2018-12-16] MEDS: metFORMIN 500 MG Tab PO SCH ×2 (08:26→17:35)
[2018-12-16] MEDS: Lisinopril 20 MG Tab PO SCH (08:30)
[2018-12-16] MEDS: Terazosin 5 MG Cap PO SCH (08:30)
[2018-12-16] MEDS ORDERED: Spironolactone 25 MG Tab PO SCH (14:00)
[2018-12-16] MEDS ORDERED: Lidocaine 2% Jelly 5 ML Tube TOP ONE (14:44)
[2018-12-16] MEDS: Warfarin 2.5 MG Tab PO SCH (17:16)
[2018-12-16] MEDS: atorvaSTATin 40 MG Tab PO SCH (20:06)
[2018-12-16] MEDS: Melatonin 3 MG Tab PO SCH (20:06)
[2018-12-16] MEDS: risperiDONE 0.25 MG Tab PO SCH (20:06)
--- NOTE | 2018-12-16 20:14 | PN ---
12/16/2018 PATIENT NAME: JOCELYN FORTE HISTORY OF PRESENT ILLNESS: This 78-year-old male patient was admitted through the emergency room. He was admitted due to increased edema of his legs and decline in his respiratory status, which required supplemental oxygenation. Prior to his admit, he did have 2 falls at the nursing center, one on 12/06/2018, and another on 12/10/2018. He has significant bruising as a result of those falls. There was a notation of a bradycardic episode of 30 and a blood pressure of 81/20 on the 12/10/2018 ER visit. He received a liter of fluid and improved. At that time, he was sent back to the nursing center. Today, he continues to have significant lower extremity swelling with some ascites in the abdomen. He also has scrotal swelling, which has been previously present. Reported per nursing staff, the patient did have his Mooney catheter removed last night due to the Mooney catheter not being patent. Irrigation was attempted unsuccessfully. Therefore, the catheter was removed. The patient has voided approximately 250 mL independently since the removal. His input has been approximately 600 mL in. He does not complain of any bladder fullness. He has no excessive distension. His Pyridium has been discontinued. There was a concern of discoloration of the urine and excessive concentration. Since the discontinuation of the Pyridium and encouragement of fluids, his urinary coloration has improved some. He denies any pain or discomfort today. His appetite remains good without any GI upset. Last evening, I was notified that the patient had discharge at the tip of the penis. A culture and sensitivity was obtained at that time and the site will be cleansed and topical ointment to be applied. REVIEW OF SYSTEMS: GENERAL: He does complain of being weak and fatigued. His appetite continues to improve. HEENT: Negative. RESPIRATORY: He continues to note some mild shortness of breath, but this is significantly improved since yesterday. CARDIOVASCULAR: He denies any chest pain or palpitations. GASTROINTESTINAL: He has no nausea or vomiting. GENITOURINARY: His Mooney catheter has been removed. He has independently voided x2 for a total of 250 mL. SKIN: He continues to have bruising, which is fading from previous falls. NEUROLOGIC: He denies any headache, lightheadedness, or dizziness. PHYSICAL EXAMINATION: VITAL SIGNS: Have been reviewed and they are stable. His heart rate has ranged from 55 to 60 beats per minute. HEENT: Head is normocephalic. His conjunctivae are clear. Noted no nasal drainage. NECK: Supple without rigidity. No lymphadenopathy. RESPIRATORY: Lung sounds are clear in the upper bases. They are mildly diminished in the lower bases. There is a very fine crackle present in the left lower lobe. CARDIOVASCULAR: Heart rate and rhythm is irregularly irregular. SKIN: There is significant bruising throughout the extremities on the chest wall and on the right side of his face from the previous falls. The ecchymosis is fading. Noted no new bruise sites. EXTREMITIES: Significantly edematous. There is some firmness. He does have Donaldo wraps to the lower extremities. He notes no specific tenderness to touch and palpation of his legs. On the right lower extremity, he has a superficial wound on the outer aspect with a scant amount of drainage. : Scrotum is reddened, it is swollen. The areas of previous wounds are healing, they are superficial at this time. There is a small amount of a discharge at the head of the penis. He denies any tenderness at this site. IMPRESSION: Acute hypoxic respiratory failure with fluid overload. Oxygenation required for stability with improvement. A CT scan has been obtained noting cirrhosis of the liver with the sequela of portal hypertension including splenomegaly, small right and trace of left pleural effusions. His secondary diagnoses include abdominal ascites, asymptomatic bacteremia, elevated aspartate aminotransferase, low hemoglobin. PLAN: We are going to decrease his Lasix to 20 mg IV on a daily basis, continue with his spironolactone at 50 mg on a daily basis. Doses were adjusted due to his kidney functions of a BUN at 27 today and a creatinine of 1.6. His scrotal and leg cultures have returned. Scrotum culture notes moderate gram-positive organisms; leg culture, few gram-positive organisms. Sensitivities are pending. The urine culture has been sent to [facility] and is pending along with the culture of penis. We will discontinue his telemetry as he has been asymptomatic. We will continue to observe for any output with independent voiding. If he is unsuccessful, a Mooney catheter will be reinserted. We will continue to attempt cold packs to the scrotum as needed, although the patient has been noncompliant and removing the cold packs when applied. Discussed case with Dr. Borrero. Informed that his baseline edematous status is a 2 to 3+ edema and that his scrotum has been swollen in the past. Treatment plan was discussed with the physician. /[id number]/MODL
[2018-12-17] MEDS: Omeprazole 20 MG Cap.CR PO SCH (06:32)
[2018-12-17] MEDS ORDERED: Diatrizoate Meglumine/Diatrizoate Sodium 37% 120 ML Bottle PO ONE (07:32)
[2018-12-17 07:58] LABS: ANION GAP 11.6 mmol/L (5-15)
[2018-12-17] MEDS: busPIRone 10 MG Tab PO SCH (08:46)
[2018-12-17] MEDS: Allopurinol 100 MG Tab PO SCH (08:47)
[2018-12-17] MEDS: Tamsulosin 0.4 MG Cap.ER PO SCH (08:47)
[2018-12-17] MEDS: chlordiazePOXIDE 10 MG Cap PO SCH (08:48)
[2018-12-17] MEDS: Nitrofurantoin Monohydrate/Macrocrystalline 100 MG Cap PO SCH (08:48)
[2018-12-17] MEDS: Spironolactone 25 MG Tab PO SCH (08:48)
[2018-12-17] MEDS: Lisinopril 20 MG Tab PO SCH (08:48)
[2018-12-17] MEDS: Terazosin 5 MG Cap PO SCH (08:49)
[2018-12-17 08:54] VITALS: BP 112/62
[2018-12-17] MEDS ORDERED: Furosemide 40 MG/4 ML VIAL IVPUSH SCH (09:00)
[2018-12-17] MEDS ORDERED: metFORMIN 500 MG Tab.ER PO SCH (09:00)
[2018-12-17] MEDS: Bacitracin/Neomycin/Polymyxin B Oint 28.4 GM Tube TOP SCH (10:15)
[2018-12-17] MEDS: metFORMIN 500 MG Tab PO SCH (10:16)
[2018-12-17] MEDS: Nystatin Ointment 15 GM Tube TOP SCH (12:15)
== END 2018-12-17 12:00 | DRG 189 ==
LOC: KA.ED 14:29 → KA.MS 20:52 → OBSVTOIN 12-15 08:00
PROVIDERS: ADMIT Nurse Practitioner; ATTEND Family Medicine
DX: J96.01 Acute respiratory failure with hypoxia (principal); R18.8 Other ascites; I48.92 Unspecified atrial flutter; J98.11 Atelectasis; Z68.42 Body mass index [BMI] 45.0-49.9, adult; I50.30 Unspecified diastolic (congestive) heart failure; I11.0 Hypertensive heart disease with heart failure; H91.90 Unspecified hearing loss, unspecified ear; H54.7 Unspecified visual loss; E78.00 Pure hypercholesterolemia, unspecified; I50.9 Heart failure, unspecified; K21.9 Gastro-esophageal reflux disease without esophagitis; K59.09 Other constipation; N40.0 Benign prostatic hyperplasia without lower urinary tract symptoms; M19.91 Primary osteoarthritis, unspecified site; G89.29 Other chronic pain; M54.9 Dorsalgia, unspecified; F41.9 Anxiety disorder, unspecified; F03.90 Unspecified dementia, unspecified severity, without behavioral disturbance, psychotic disturbance, mood disturbance, and anxiety; E88.09 Other disorders of plasma-protein metabolism, not elsewhere classified; E66.01 Morbid (severe) obesity due to excess calories; F32.9 Major depressive disorder, single episode, unspecified; E78.1 Pure hyperglyceridemia; M10.9 Gout, unspecified; E11.9 Type 2 diabetes mellitus without complications; D64.9 Anemia, unspecified; I48.2 Chronic atrial fibrillation; B36.9 Superficial mycosis, unspecified; R58 Hemorrhage, not elsewhere classified; E07.89 Other specified disorders of thyroid; R16.1 Splenomegaly, not elsewhere classified; R31.9 Hematuria, unspecified; I25.2 Old myocardial infarction; Z88.8 Allergy status to other drugs, medicaments and biological substances; Z88.6 Allergy status to analgesic agent; Z79.899 Other long term (current) drug therapy; Z79.01 Long term (current) use of anticoagulants; Z79.84 Long term (current) use of oral hypoglycemic drugs; Z86.73 Personal history of transient ischemic attack (TIA), and cerebral infarction without residual deficits; Z90.49 Acquired absence of other specified parts of digestive tract; Z87.891 Personal history of nicotine dependence; Z85.46 Personal history of malignant neoplasm of prostate
CPT/HCPCS: 36415; 51702; 51798; 71045; 71250; 74177; 80048; 80053; 81001; 82550; 82553; 82962; 83880; 84439; 84443; 84484; 85025; 85610; 86140; 87070; 87086; 87088; 87186; 87205; 93005; 96374; 96376; 99284; 99285-25; A9270-GY; G0378; J1940; Q9963; Q9967